=== PATIENT | female | born 1940 | race Caucasian/White ===

== ENCOUNTER 2017-06-25 06:58 | Inpatient (IN) | payer OTHER, MEDICARE ==
[~2017-06-25] VITALS: Ht 160 cm; Wt 49.8 kg
[2017-06-25] VITALS (30 sets, daily range): BP systolic 90–146; BP diastolic 36–80; PULSE 74–110; RESP 14–31; TEMP 97–98.5; O2SAT 68–100
[~2017-06-25 06:58] MED LIST: AMLO2.5T PO; AMOX250C PO; CLIN1CAP5 PO; FLUT1INH INH; HYZA100T6 PO; LATA0.00 EACH EYE; LORTA5 PO; Z.0.OXYGEN INH
[2017-06-25] MEDS ORDERED: methylPREDNISolone SOD SUCC 125 MG/2 ML VIAL IV PUSH ONE (07:15)
[2017-06-25] MEDS ORDERED: RESP: ALBUTEROL 2.5 MG/IPRATROPIUM 0.5 MG NEB (SCH) NEB ONE (07:15)
[2017-06-25] MEDS: RESP: ALBUTEROL 2.5 MG/IPRATROPIUM 0.5 MG NEB (SCH) INH ×4 (07:17→23:07)
--- NOTE | 2017-06-25 07:21 | PD ---
HPI Chief Complaint: short of breath Time Seen by Provider: 07:09 Travel History International Travel<30 days: No Contact w/Intl Traveler<30days: No Traveled to known affect area: No History of Present Illness HPI 77-year-old female presents to the emergency department by private transportation to care family for evaluation of shortness of breath worsening over the weekend. Patient denies any chest pain sweats nausea vomiting referred neck jaw back shoulder arm pain. Patient has COPD and is on supplemental oxygen 2 L/min nasal cannula at all times. Patient had cough productive of some white to yellow sputum but denies any green or brown sputum or hemoptysis. Patient denies any pain with taking a deep breath. Patient denies any abdominal pain. No report of referred neck jaw back shoulder arm pain. No report of fever or chills. Patient states she did have the flu vaccine. PFSH Past Medical History Narrative Medical Asthma anxiety fast heartbeat COPD diverticulitis hypertension valvular heart disease hysterectomy; tobacco use alcohol use; nursing notes reviewed Hx Anticoagulant Therapy: Yes (BABY ASA DAILY) Asthma: Yes Autoimmune Disease: No Anxiety: Yes Depression: No Heart Rhythm Problems: Yes (recalls episode treated for "fast heart rate") Cancer: No Cardiovascular Problems: Yes (HTN) High Cholesterol: No Cirrhosis: Yes (KIDNEY DISEASE CHRONIC STAGE III) COPD: Yes Diabetes: No Diminished Hearing: No Diverticulitis: Yes Endocrine: No Gastrointestinal Disorders: No Genitourinary: No Hypertension: Yes Immune Disorder: No Implanted Vascular Access Dvce: No Musculoskeletal: No Neurologic: No Psychiatric: Yes Reproductive: Yes (BLOCKED FALLOPIAN TUBES) Respiratory: Yes (COPD) Immunizations Current: Yes Migraines: Yes Sleep Apnea: No Thyroid Disease: No Menopausal: Yes Past Surgical History Cardiac Surgery: No Gynecologic Surgery: Yes (total hysterectomy) Hysterectomy: Yes Neurologic Surgery: No Other Surgery: Yes Social History Alcohol Use: Yes (OCC) Tobacco Use: Yes (3 cigarettes/day) Substance Use: No Allergies-Medications (Allergen,Severity, Reaction): Coded Allergies: No Known Allergies (Unverified , 01/02/16) Reported Meds & Prescriptions Reported Meds & Active Scripts Active Reported [oxygen] 2 Liter Duoneb (Ipratropium-Albuterol Neb) 0.5-2.5 Mg/3 Ml Neb 1 Nebule INH Q6HR NEB PRN Breo Ellipta Inh (Fluticasone/Vilanterol) 100-25 Mcg/Act Inh 1 Puff INH DAILY Use daily at the same time. Losartan-Hydrochlorothiazide 100-12.5 Mg Tab 1 Tab PO DAILY Amlodipine (Amlodipine Besylate) 2.5 Mg Tab 2.5 Mg PO DAILY Review of Systems Except as stated in HPI: all other systems reviewed are Neg General / Constitutional: No: Fever, Chills HENT: Positive: Congestion Cardiovascular: Positive: Dyspnea on exertion, No: Chest Pain or Discomfort, Edema Respiratory: Positive: Cough, Shortness of Breath, Wheezing, Orthopnea, No: Pleuritic Pain Gastrointestinal: No: Nausea, Vomiting, Abdominal Pain Genitourinary: No: Flank Pain Musculoskeletal: No: Myalgias, Arthralgias, Cramping, Edema Skin: No Rash Neurologic: No: Weakness, Dizziness, Syncope Psychiatric: Positive: Anxiety Hematologic/Lymphatic: No: Lymph Node Enlargement Physical Exam Narrative GENERAL: Well-developed well-nourished elderly female in obvious respiratory distress with supplemental nasal cannula oxygen 3.5 L per nasal cannula at 82% SKIN: Warm and dry. HEAD: Normocephalic. EYES: No scleral icterus. No injection or drainage. NECK: Supple, trachea midline. No JVD or lymphadenopathy. CARDIOVASCULAR: Increased regular rate and rhythm without murmurs, gallops, or rubs. RESPIRATORY: Breath sounds equal bilaterally and diminished bilaterally. No accessory muscle use. GASTROINTESTINAL: Abdomen soft, non-tender, nondistended. MUSCULOSKELETAL: No cyanosis, or edema. BACK: Nontender without obvious deformity. No CVA tenderness. Data Data Orders Orders Complete Blood Count With Diff (06/25/17 07:09) Comprehensive Metabolic Panel (06/25/17 07:09) B-Type Natriuretic Peptide (06/25/17 07:09) Act Partial Throm Time (Ptt) (06/25/17 07:09) Prothrombin Time / Inr (Pt) (06/25/17 07:09) Magnesium (Mg) (06/25/17 07:09) Ckmb (Isoenzyme) Profile (06/25/17 07:09) Troponin I (06/25/17 07:09) Arterial Blood Gas (Abg) (06/25/17 07:09) Influenzae A/B Antigen (06/25/17 07:09) Blood Culture (06/25/17 07:09) Iv Access Insert/Monitor (06/25/17 07:09) Electrocardiogram (06/25/17 07:09) Ecg Monitoring (06/25/17 07:09) Oximetry (06/25/17 07:09) Oxygen Administration (06/25/17 07:09) Chest, Single Ap (06/25/17 07:09) Sodium Chloride 0.9% Flush (Ns Flush) (06/25/17 07:15) Methylprednisolone So Succ Inj (Solumedr (06/25/17 07:15) Albuterol-Ipratropium Neb (Duoneb Neb) (06/25/17 07:15) Albuterol-Ipratropium Neb (Duoneb Neb) (06/25/17 07:15) Labs Laboratory Tests Test 06/25/17 07:15 White Blood Count 11.5 TH/MM3 Red Blood Count 4.45 MIL/MM3 Hemoglobin 13.1 GM/DL Hematocrit 39.3 % Mean Corpuscular Volume 88.3 FL Mean Corpuscular Hemoglobin 29.5 PG Mean Corpuscular Hemoglobin Concent 33.4 % Red Cell Distribution Width 13.3 % Platelet Count 193 TH/MM3 Mean Platelet Volume 8.7 FL Neutrophils (%) (Auto) 82.5 % Lymphocytes (%) (Auto) 8.4 % Monocytes (%) (Auto) 8.5 % Eosinophils (%) (Auto) 0.0 % Basophils (%) (Auto) 0.6 % Neutrophils # (Auto) 9.4 TH/MM3 Lymphocytes # (Auto) 1.0 TH/MM3 Monocytes # (Auto) 1.0 TH/MM3 Eosinophils # (Auto) 0.0 TH/MM3 Basophils # (Auto) 0.1 TH/MM3 CBC Comment DIFF FINAL Differential Comment Calcium Level 9.2 MG/DL Sodium Level 134 MEQ/L Potassium Level 3.7 MEQ/L Chloride Level 91 MEQ/L MDM Medical Decision Making Medical Screen Exam Complete: Yes Emergency Medical Condition: Yes Medical Record Reviewed: Yes Interpretation(s) EKG: sinus tachycardia rate 110 with LVH no acute ST elevation P pulmonale Differential Diagnosis Dyspnea, exacerbation COPD, CHF, ACS, pneumonia, PE, respiratory failure Narrative Course Patient placed on pig sticker with continuous pulse oximetry nasal canula change to Ventimask however patient unable to tolerate mask and change back to nasal cannula at 4 L/min nasal cannula while on DuoNeb updrafts received Solu- Medrol 125 mg IV patient has a 4/6 holosystolic murmur and patient reports that she was told that this needed to be investigated in January 2017 but was not able to do so. Care signed over to oncalida Correa Diagnosis Primary Impression: COPD with acute exacerbation Nell Schmitz MD Jun 25, 2017 07:21
--- NOTE | 2017-06-25 07:30 | RADRPT ---
EXAM DATE/TIME: 06/25/2017 07:19 [facility] COMPARISON: CHEST SINGLE AP, October 15, 2015, 13:30. INDICATIONS : Short of breath. MEDICAL HISTORY : Chronic obstructive pulmonary disease. SURGICAL HISTORY : None. ENCOUNTER: Initial ACUITY: 3 days PAIN SCORE: 1/10 LOCATION: Bilateral chest FINDINGS: Mild diffuse interstitial prominence slightly progressed since prior exam. Minimal blunting of the co stophrenic angles bilaterally. Cardiomediastinal contours are within normal limits bony thorax is int act. CONCLUSION: 1. Changes of obstructive pulmonary disease. 2. Minimal blunting of the costophrenic angles may reflect pleural thickening/trace pleural fluid. Cristiano Dan MD on June 25, 2017 at 7:27 Board Certified Radiologist. This report was verified electronically.
[2017-06-25] MEDS: SODIUM CHLORIDE 0.9% FLUSH 10 ML FLUSH IVF PRN (07:32)
[2017-06-25 07:37] LABS: AUTOMATED NEUTROPHIL # 9.4 TH/MM3 (1.8-7.7); BASOPHIL # 0.1 TH/MM3 (0-0.2); BASOPHIL % 0.6 % (0.0-2.0); HEMATOCRIT 39.3 % (35.0-46.0); HEMOGLOBIN 13.1 GM/DL (11.6-15.3); LYMPH % 8.4 % (9.0-44.0); MEAN CELL VOLUME 88.3 FL (80.0-100.0); MEAN CORPUSCULAR HEMOGLOBIN 29.5 PG (27.0-34.0); MEAN CORPUSCULAR HGB CONC 33.4 % (32.0-36.0); MEAN PLATELET VOLUME 8.7 FL (7.0-11.0); MONO % 8.5 % (0.0-8.0); NEUT % 82.5 % (16.0-70.0); PLATELET COUNT 193 TH/MM3 (150-450); RED BLOOD COUNT 4.45 MIL/MM3 (4.00-5.30); RED CELL DISTRIBUTION WIDTH 13.3 % (11.6-17.2); WHITE BLOOD COUNT 11.5 TH/MM3 (4.0-11.0)
[2017-06-25] MEDS ORDERED: LOSA100T3 PO (07:40)
[2017-06-25] MEDS ORDERED: FLUT1INH INH (07:40)
[2017-06-25] MEDS ORDERED: AMLO2.5T PO (07:40)
[2017-06-25] MEDS ORDERED: oxygen (07:40)
[2017-06-25] MEDS ORDERED: IPRASOL INH (07:40)
[2017-06-25 07:45] LABS: CHLORIDE 91 MEQ/L (98-107); SODIUM (NA) 134 MEQ/L (136-145)
[2017-06-25 07:49] LABS: ALBUMIN 3.4 GM/DL (3.4-5.0); BICARBONATE 38.7 MEQ/L (21.0-32.0); BLOOD UREA NITROGEN 30 MG/DL (7-18); CALCIUM 9.2 MG/DL (8.5-10.1); GLUCOSE,RANDOM 115 MG/DL (74-106); INTERNATIONAL NORMALIZED RATIO 1.1 RATIO; MAGNESIUM 1.8 MG/DL (1.5-2.5); PROTHROMBIN TIME - PATIENT 11.2 SEC (9.8-11.6)
[2017-06-25 07:52] LABS: ALT (GPT) 10 U/L (10-53); AST (GOT) 13 U/L (15-37); CREATININE 0.73 MG/DL (0.50-1.00); GLOMERULAR FILTRATION RATE 77 ML/MIN (>89)
[2017-06-25 07:54] LABS: TOTAL BILIRUBIN ADULT 0.6 MG/DL (0.2-1.0); TOTAL PROTEIN 8.3 GM/DL (6.4-8.2)
[2017-06-25 07:55] LABS: ALKALINE PHOSPHATASE 69 U/L (45-117)
[2017-06-25] MEDS ORDERED: ASPIRIN 81 MG CHEW TAB CHEW ONE (08:30)
--- NOTE | 2017-06-25 09:46 | PD ---
Data Data Last Documented VS Vital Signs Date Time Temp Pulse Resp B/P (MAP) Pulse Ox O2 Delivery O2 Flow Rate FiO2 06/25/17 09:38 102 15 106/60 (75) 93 BiPAP 40 06/25/17 08:08 3.00 06/25/17 07:15 97.0 Orders Orders Complete Blood Count With Diff (06/25/17 07:09) Comprehensive Metabolic Panel (06/25/17 07:09) B-Type Natriuretic Peptide (06/25/17 07:09) Act Partial Throm Time (Ptt) (06/25/17 07:09) Prothrombin Time / Inr (Pt) (06/25/17 07:09) Magnesium (Mg) (06/25/17 07:09) Ckmb (Isoenzyme) Profile (06/25/17 07:09) Troponin I (06/25/17 07:09) Arterial Blood Gas (Abg) (06/25/17 07:09) Influenzae A/B Antigen (06/25/17 07:09) Blood Culture (06/25/17 07:09) Iv Access Insert/Monitor (06/25/17 07:09) Electrocardiogram (06/25/17 07:09) Ecg Monitoring (06/25/17 07:09) Oximetry (06/25/17 07:09) Oxygen Administration (06/25/17 07:09) Chest, Single Ap (06/25/17 07:09) Sodium Chloride 0.9% Flush (Ns Flush) (06/25/17 07:15) Methylprednisolone So Succ Inj (Solumedr (06/25/17 07:15) Albuterol-Ipratropium Neb (Duoneb Neb) (06/25/17 07:15) Albuterol-Ipratropium Neb (Duoneb Neb) (06/25/17 07:15) Electrocardiogram (06/25/17 ) Aspirin Chew (Aspirin Chew) (06/25/17 08:30) Resp Bipap / Cpap Non Invas Vt (06/25/17 ) Arterial Blood Gas (Abg) (06/25/17 ) Admit Order (Ed Use Only) (06/25/17 ) Labs Laboratory Tests Test 06/25/17 07:15 06/25/17 08:12 06/25/17 09:55 White Blood Count 11.5 TH/MM3 Red Blood Count 4.45 MIL/MM3 Hemoglobin 13.1 GM/DL Hematocrit 39.3 % Mean Corpuscular Volume 88.3 FL Mean Corpuscular Hemoglobin 29.5 PG Mean Corpuscular Hemoglobin Concent 33.4 % Red Cell Distribution Width 13.3 % Platelet Count 193 TH/MM3 Mean Platelet Volume 8.7 FL Neutrophils (%) (Auto) 82.5 % Lymphocytes (%) (Auto) 8.4 % Monocytes (%) (Auto) 8.5 % Eosinophils (%) (Auto) 0.0 % Basophils (%) (Auto) 0.6 % Neutrophils # (Auto) 9.4 TH/MM3 Lymphocytes # (Auto) 1.0 TH/MM3 Monocytes # (Auto) 1.0 TH/MM3 Eosinophils # (Auto) 0.0 TH/MM3 Basophils # (Auto) 0.1 TH/MM3 CBC Comment DIFF FINAL Differential Comment Prothrombin Time 11.2 SEC Prothromb Time International Ratio 1.1 RATIO Activated Partial Thromboplast Time 31.0 SEC Blood Urea Nitrogen 30 MG/DL Creatinine 0.73 MG/DL Random Glucose 115 MG/DL Total Protein 8.3 GM/DL Albumin 3.4 GM/DL Calcium Level 9.2 MG/DL Magnesium Level 1.8 MG/DL Alkaline Phosphatase 69 U/L Aspartate Amino Transf (AST/SGOT) 13 U/L Alanine Aminotransferase (ALT/SGPT) 10 U/L Total Bilirubin 0.6 MG/DL Sodium Level 134 MEQ/L Potassium Level 3.7 MEQ/L Chloride Level 91 MEQ/L Carbon Dioxide Level 38.7 MEQ/L Anion Gap 4 MEQ/L Estimat Glomerular Filtration Rate 77 ML/MIN Total Creatine Kinase 25 U/L Troponin I 0.10 NG/ML B-Type Natriuretic Peptide 498 PG/ML Blood Gas Puncture Site LT RADIAL LT RADIAL Blood Gas Patient Temperature 98.6 98.6 Blood Gas HCO3 41 mmol/L 40 mmol/L Blood Gas Base Excess 13.1 mmol/L 12.2 mmol/L Blood Gas Oxygen Saturation 88 % 88 % Arterial Blood pH 7.23 7.24 Arterial Blood Partial Pressure CO2 100 mmHG 98 mmHG Arterial Blood Partial Pressure O2 74 mmHG 70 mmHG Arterial Blood Oxygen Content 15.4 Vol % 15.7 Vol % Arterial Blood Carboxyhemoglobin 2.6 % 2.5 % Arterial Blood Methemoglobin 1.1 % 1.2 % Blood Gas Hemoglobin 12.4 G/DL 12.7 G/DL Oxygen Delivery Device NASAL CANNULA BIPAP Blood Gas Liter Flow 3 L/M Blood Gas Ventilator Setting IPAP15/[id number] Blood Gas Inspired Oxygen 35 % MDM Supervised Visit with DAVID: No Narrative Course Patient CARE assume from Dr. Nell Schmitz at 0730, patient found to have significant respiratory acidosis on her blood gas. She was placed on BiPAP. GCS 15 she is tolerating this quite well. Settings of 5/15/40 percent her sats are now 91%. Patient was discussed with Dr. Yoder, he would like a repeat blood gas to make sure that the patient is not worsening on BiPAP and if not can stay in [place]. Her EKG does show nonevolving T-wave depressions in V4 through V6 without any ST segment elevation. Patient has a troponin of 0.10 but is chest pain-free and has not been having any chest pain. This was discussed with Dr. Yoder. 325 aspirin were given here in the emergency department. I reviewed the repeat ABG and PCO2 has gone from 197.6 really no change. She is tolerating BiPAP very well and is GCS 15. Will be admitted to [place] ICU. I did discuss with the patient her CODE STATUS and at this time she wishes to remain a FULL CODE. Critical Care Narrative Aggregate critical care time was 35 minutes. Time to perform other separately billable procedures was not included in the critical care time. My time did not include minutes spent treating any other patients simultaneously or on activities that did not directly contribute to the patient's treatment. The services I provided to this patient were to treat and/or prevent clinically significant deterioration that could result in: , disability, permanent organ failure I provided critical care services requiring my management, as noted below: Chart data review, documentation time, medication orders and management, vital sign assessments/reviewing monitor data, ordering and reviewing lab tests, ordering and interpreting/reviewing x-rays and diagnostic studies, care of the patient and discussion of the patient with the admitting physicians. Diagnosis Primary Impression: COPD with acute exacerbation Kings Correa MD Jun 25, 2017 09:46
[2017-06-25] MEDS ORDERED: CHLORHEXIDINE GLUCONATE 2 % 1 PACK (2 CLOTHS) TOP PRN (12:45)
[2017-06-25] MEDS ORDERED: DEXTROSE 50% IN WATER 50 ML VIAL(D50) IV PUSH PRN (12:45)
[2017-06-25] MEDS ORDERED: MISCELLANEOUS NURSING INFORMATION XX SCH (12:45)
[2017-06-25] MEDS ORDERED: GLUCAGON 1 MG/ML VIAL OTHER PRN (12:45)
[2017-06-25] MEDS: INSULIN NovoLIN REGULAR SUPPLEMENTAL SCALE SQ SCH ×3 (13:00→20:39)
[2017-06-25] MEDS: SODIUM CHLOR 0.9% 1000 ML INJ 1,000 ML IV SCH (13:24)
[2017-06-25] MEDS ORDERED: methylPREDNISolone SOD SUCC 125 MG/2 ML VIAL IV SCH (14:00)
--- NOTE | 2017-06-25 15:24 | ECHRPT ---
Indication: sob CONCLUSIONS The left ventricular systolic function is hyperdynamic with an estimated ejection fraction in the ra nge of 65- 70%. Moderate concentric left ventricular hypertrophy. Doppler parameters are consistent with impaired left ventricular relaxtion (grade 1 diastolic dysfun ction). Mitral valve appears to be moderately stenosed (mean gradient 4mmHg by VTI at a heart rate of 80) Probable mild aortic stenosis (mean gradient 14) There is mild tricuspid valve regurgitation. BP: / HR: Rhythm: MEASUREMENTS (Male / Female) Normal Values Technical Quality:Technically difficult study 2D ECHO LV Diastolic Diameter PLAX 3.2 cm 4.2 - 5.9 / 3.9 - 5.3 cm LV Systolic Diameter PLAX 2.5 cm IVS Diastolic Thickness 1.6 cm 0.6 - 1.0 / 0.6 - 0.9 cm LVPW Diastolic Thickness 1.4 cm 0.6 - 1.0 / 0.6 - 0.9 cm LV Relative Wall Thickness 0.9 RV Internal Dim ED PLAX 2.3 cm M-MODE Aortic Root Diameter MM 2.6 cm LA Systolic Diameter MM 2.6 cm LA Ao Ratio MM 1.0 AV Cusp Separation MM 1.3 cm DOPPLER AV Peak Velocity 279.0 cm/s AV Peak Gradient 31.1 mmHg AV Mean Gradient 14.0 mmHg AV Velocity Time Integral 57.0 cm LVOT Peak Velocity 176.0 cm/s LVOT Peak Gradient 12.4 mmHg LVOT Velocity Time Integral 24.8 cm MV Area PHT 1.1 cm Mitral E Point Velocity 99.8 cm/s Mitral A Point Velocity 150.0 cm/s Mitral E to A Ratio 0.7 LV E' Lateral Velocity 4.8 cm/s Mitral E to LV E' Lateral Ratio 20.9 LV E' Septal Velocity 4.5 cm/s Mitral E to LV E' Septal Ratio 22.3 TR Peak Velocity 400.0 cm/s TR Peak Gradient 64.0 mmHg Right Atrial Pressure 10.0 mmHg Pulmonary Artery Systolic Pressu 74.0 mmHg Right Ventricular Systolic Press 74.0 mmHg FINDINGS LEFT VENTRICLE Normal left ventricular size. The left ventricular systolic function is hyperdynamic with an estimated ejection fraction in the ra nge of 65- 70%. Moderate concentric left ventricular hypertrophy. Doppler parameters are consistent with impaired left ventricular relaxtion (grade 1 diastolic dysfun ction). No regional wall motion abnormalities are present. RIGHT VENTRICLE Normal right ventricular size and systolic function. LEFT ATRIUM The left atrial size is moderately dilated. RIGHT ATRIUM The right atrial size is normal. ATRIAL SEPTUM Normal atrial septal thickness without atrial level shunting by limited color doppler interrogation. AORTA The aortic root and proximal ascending aorta are normal in size on limited imaging. MITRAL VALVE Moderate thickening of the mitral valve leaflets. Calcification of the anterior mitral valve leaflet. Trace mitral valve regurgitation. Mitral valve appears to be moderately stenosed (mean gradient 4mmHg by VTI at a heart rate of 80) MVA measured as 1.13cm2, most likely not a relable image to measure AORTIC VALVE The aortic valve is not well visualized. Mild thickening of the aortic valve leaflets. No aortic valve regurgitation. Probable mild aortic stenosis (mean gradient 14) TRICUSPID VALVE Structurally normal tricuspid valve. There is mild tricuspid valve regurgitation. The estimated pulmonary arterial pressure is 74 mmHg. PULMONARY VALVE No pulmonary valve regurgitation or stenosis. VESSELS The inferior vena cava is normal in size. PERICARDIUM No pericardial effusion. Scotty Engle DO (Electronically Signed) Final Date:25 June 2017 15:22
[2017-06-25] MEDS: BUDESONIDE-FORMOTEROL 160/4.5 MCG INHALER INH SCH ×2 (15:53→20:28)
[2017-06-25] MEDS: LEVOFLOXACIN 500 MG TAB PO SCH (16:50)
[2017-06-25] MEDS: OSELTAMIVIR PHOSPHATE 75 MG CAP PO SCH ×2 (16:50→20:28)
--- NOTE | 2017-06-25 16:55 | MH ---
cc: Maurice Rios MD DATE OF ADMISSION: 06/25/2017 HISTORY OF PRESENT ILLNESS: The patient is a 77-year-old female with past medical history of COPD, on 2 L home oxygen nocturnally, being followed by Dr. Whitaker as an outpatient, hypertension, diverticulitis, and anxiety disorder. She presented to [place] ED with worsening shortness of breath for the past several days. She denies any chest pain or any constitutional symptoms; however, she reports dry cough. She denies any exposure to sick contacts and denies any prior history of intubation for COPD. Furthermore, the patient denies any nausea, vomiting, or abdominal pain. On arrival to the ED, she was tachypneic and tachycardic. She had an ABG done on nasal cannula which showed acute hypercapnic respiratory acidosis with a pH of 7.23, a CO2 100, a pO2 74, bicarb of 41, and saturation 88%. Subsequently, she was placed on BiPAP and had 2 additional blood gases. Her last ABG from this afternoon showed improvements of her respiratory acidosis with a pH of 7.30, CO2 82, PaO2 63, and a bicarb of 39. Patient was given Solu-Medrol 125 mg IV push x 1 in the ED along with bronchodilator treatment and aspirin. Her laboratory data is significant for a mild elevation in troponin at 0.10, which decreased to 0.08 on the second set. Her BNP was 498. A chest x-ray in the ED showed COPD changes. The patient had nasal washing done in the ED which was positive for flu A antigen. When seen, she is off BiPAP and on nasal cannula. The patient appears comfortable. PAST MEDICAL HISTORY: Significant for COPD, on 2 L nocturnal oxygen at home, valvular heart disease, anxiety disorder, hypertension. PAST SURGICAL HISTORY: Previous hysterectomy, previous cataract surgery. ALLERGIES: NO KNOWN DRUG ALLERGIES. FAMILY HISTORY: Not contributing to current present illness. SOCIAL HISTORY: Occasional smoker. She smokes 3-4 cigarettes a day. Nondrinker. REPORTED MEDICATIONS: Include DuoNeb, Breo, amlodipine. REVIEW OF SYSTEMS: As per HPI. The rest of the review of systems is unremarkable. PHYSICAL EXAMINATION: GENERAL: A 77-year-old female, lying in bed, in mild respiratory distress. VITAL SIGNS: Afebrile, pulse of 85, blood pressure 107/55, saturation 92% on 4 L oxygen. HEENT: Atraumatic, normocephalic. Pupils equal, round, reactive to light and accommodation. Extraocular muscles are intact. Conjunctivae pink. Nonicteric sclerae. Oral mucosa within normal. NECK: Supple. No JVD, adenopathy, or thyromegaly. Trachea in the midline. CARDIOVASCULAR: Regular rate and rhythm. Normal S1, S2. No murmurs, rubs, or gallops. PULMONARY: Bilateral equal air entry. Overall diminished. No crackles. ABDOMEN: Soft, nontender. No distention. Positive bowel sounds. EXTREMITIES: No cyanosis, clubbing, or edema. NEUROLOGIC: No focal motor or sensory deficit. LABORATORY DATA: WBC 11.5, hemoglobin 13, hematocrit 39, platelet count 193. Sodium 134, potassium 3.7, chloride 91, CO2 38, BUN 30, creatinine 0.73, glucose 115, AST 13, ALT 10, alk phos 69, total bilirubin 0.6. BNP 498. Albumin 3.4. ABG from 04/10 showed a pH of 7.30, CO2 82, PaO2 63, bicarb 39, sats 88%. Radiographic studies: Chest x-ray showed COPD changes. Nasal washing positive for flu A antigen. IMPRESSION: 1. Acute hypercapnic and hypoxemic respiratory failure. 2. Chronic obstructive pulmonary disease exacerbation. 3. Positive influenza. 4. Hyponatremia. 5. Mild elevation in troponin. 6. Moderate mitral stenosis. 7. Hypertension. RECOMMENDATIONS: 1. Monitor neuro status closely and avoid any sedatives. 2. I have continued oxygen and maintained sats above 92%. 3. Bronchodilators in the form of DuoNeb q.4 plus q.2 p.r.n. for shortness of breath. In addition, I will place on Symbicort 160/4.5 two puffs q.12 hours. 4. Solu-Medrol 60 mg IV q.8. Will consult Dr. Whitaker. Patient is known to him. 5. Noninvasive positive pressure ventilation p.r.n. for respiratory distress. 6. Monitor heart rate and blood pressure closely and maintain MAP greater than 65 mmHg. 7. Monitor renal function, I's and O's, and electrolyte replacement as needed. Place on IV fluids NS at 75 mL/hr. 8. Echocardiogram was performed today which showed moderate mitral stenosis, EF 65-70% and grade I diastolic dysfunction. I will consult cardiology service regarding her valvular heart disease. 9. Patient was placed on p.o. heart-healthy diet. 10. Continue Pepcid for GI prophylaxis. 11. Will place on Tamiflu 75 mg b.i.d. in addition to empiric antibiotics, Levaquin. Monitor for signs of infection, which include fever and WBC. Follow up on blood cultures that were drawn today. In addition, we will obtain a sputum culture with Gram stain. 12. Place on sliding scale insulin with Accu-Cheks for glycemic control, as patient will be on IV steroids. 13. Monitor CBC. 14. GI prophylaxis with Pepcid and DVT prophylaxis with SCDs and heparin subcutaneously. 15. Further recommendations will be based on hospital course. MD GIUSEPPE Ascencio/JAEL , 04:27 PM , 04:53 PM
[2017-06-25] MEDS ORDERED: IOHEXOL 350 MG/ML 10 ML VIAL (for RAD DIAG) IVCONTRAST ONE (18:58)
--- NOTE | 2017-06-25 19:04 | EKG ---
Date Performed: 06/25/2017 Time Performed: 08:58:23 PTAGE: 77 years EKG: SINUS TACHYCARDIA RIGHT ATRIAL ENLARGEMENT LEFT ATRIAL ENLARGEMENT LEFT VENTRICULAR HYPERTR OPHY AND ST-T CHANGE ABNORMAL ECG Since the prior tracing, there has been no significant change PREVIOUS TRACING : 06/25/2017 07.11 DOCTOR: Chester Randall Interpretating Date/Time 06/25/2017 19:02:45
--- NOTE | 2017-06-25 19:42 | RADRPT ---
EXAM DATE/TIME: 06/25/2017 18:51 [facility] COMPARISON: No previous studies available for comparison. INDICATIONS : Tachypnea. IV CONTRAST: 70 cc Omnipaque 350 (iohexol) IV RADIATION DOSE: 6.21 CTDIvol (mGy) MEDICAL HISTORY : Chronic obstructive pulmonary disease. Hypertension. SURGICAL HISTORY : None. ENCOUNTER: Initial ACUITY: 1 day PAIN SCALE: 0/10 LOCATION: chest TECHNIQUE: Volumetric scanning of the chest was performed. Using automated exposure control and adjustment of t he mA and/or kV according to patient size, radiation dose was kept as low as reasonably achievable to obtain optimal diagnostic quality images. DICOM format image data is available electronically for review and comparison. Follow-up recommendations for detected pulmonary nodules are based at a minimum on nodule size and pa tient risk factors according to Fleischner Society Guidelines. FINDINGS: LUNGS: Moderate severity upper lobe emphysema and diffusely prominent interstitial markings, more prominent right than left. There is a spiculated margin 12 mm mass adjacent to the posterior aortic arch media l left lung, best seen on image #19. Calcified granuloma in the anterior right midlung measures 5 mm . There is some consolidation without air bronchograms measuring 1.8 cm adjacent to the pleural effu francis in the lower posterior right chest. PLEURA: Small pleural effusion in the posterior right chest measuring 1.7 cm. MEDIASTINUM: The heart and great vessels demonstrate no acute abnormality. There is no mediastinal or hilar lymph adenopathy. Prominent coronary artery calcifications. AXILLAE: Within normal limits. No lymphadenopathy. SKELETAL: Within normal limits for patient age. MISCELLANEOUS: The visualized upper abdominal organs demonstrate no acute abnormality. CONCLUSION: 1. 12 mm spiculated mass in the medial left upper lung adjacent to the posterior arch of the aorta, s uspicious for malignancy. 2. Small right pleural effusion with masslike area of consolidation devoid of air bronchograms in the adjacent right lower lung. 3. No evidence of mediastinal adenopathy. Blane Boyle MD on June 25, 2017 at 19:36 Board Certified Radiologist. This report was verified electronically.
[2017-06-25] MEDS: HEPARIN SODIUM - SQ 10,000 UNITS/ML VIAL SQ SCH (20:28)
[2017-06-25] MEDS: FAMOTIDINE 20 MG/2 ML VIAL IV PUSH SCH (20:29)
[2017-06-25] MEDS: methylPREDNISolone SOD SUCC 40 MG/1 ML VIAL IV PUSH SCH (21:25)
[2017-06-26] VITALS (36 sets, daily range): BP systolic 106–149; BP diastolic 51–69; PULSE 72–112; RESP 15–39; TEMP 97.1–98.1; O2SAT 85–98
[2017-06-26] MEDS: INSULIN NovoLIN REGULAR SUPPLEMENTAL SCALE SQ SCH ×6 (00:19→21:16)
[2017-06-26] MEDS: RESP: ALBUTEROL 2.5 MG/IPRATROPIUM 0.5 MG NEB (SCH) INH ×6 (03:20→22:59)
[2017-06-26] MEDS: CHLORHEXIDINE GLUCONATE 2 % 1 PACK (2 CLOTHS) TOP SCH (04:00)
[2017-06-26] MEDS: SODIUM CHLOR 0.9% 1000 ML INJ 1,000 ML IV SCH (04:17)
[2017-06-26 05:31] LABS: AUTOMATED NEUTROPHIL # 6.5 TH/MM3 (1.8-7.7); BASOPHIL % 0.1 % (0.0-2.0); HEMATOCRIT 32.8 % (35.0-46.0); HEMOGLOBIN 10.6 GM/DL (11.6-15.3); LYMPH % 4.9 % (9.0-44.0); LYMPHOCYTE # 0.4 TH/MM3 (1.0-4.8); MEAN CELL VOLUME 86.4 FL (80.0-100.0); MEAN CORPUSCULAR HEMOGLOBIN 27.8 PG (27.0-34.0); MEAN CORPUSCULAR HGB CONC 32.2 % (32.0-36.0); MONO % 6.4 % (0.0-8.0); MONOCYTE # 0.5 TH/MM3 (0-0.9); NEUT % 88.6 % (16.0-70.0); PLATELET COUNT 164 TH/MM3 (150-450); RED BLOOD COUNT 3.79 MIL/MM3 (4.00-5.30); RED CELL DISTRIBUTION WIDTH 12.9 % (11.6-17.2); WHITE BLOOD COUNT 7.4 TH/MM3 (4.0-11.0)
[2017-06-26 05:44] LABS: BICARBONATE 38.1 MEQ/L (21.0-32.0); CALCIUM 8.6 MG/DL (8.5-10.1)
[2017-06-26 05:47] LABS: CREATININE 0.62 MG/DL (0.50-1.00)
[2017-06-26 05:48] LABS: PHOSPHORUS 1.7 MG/DL (2.5-4.9)
[2017-06-26] MEDS: methylPREDNISolone SOD SUCC 40 MG/1 ML VIAL IV PUSH SCH ×3 (06:15→21:43)
[2017-06-26] MEDS: SODIUM CHLORIDE 0.9% FLUSH 10 ML FLUSH IVF PRN ×2 (06:15→21:43)
--- NOTE | 2017-06-26 07:02 | EKG ---
Date Performed: 06/25/2017 Time Performed: 07:11:53 PTAGE: 77 years EKG: SINUS TACHYCARDIA WITH OCCASIONAL SUPRAVENTRICULAR PREMATURE COMPLEXES RIGHT ATRIAL ENLARGE MENT LEFT ATRIAL ENLARGEMENT LEFT VENTRICULAR HYPERTROPHY AND ST-T CHANGE ABNORMAL ECG Compared to PREVIOUS TRACING , LV strain pattern is more prominent than the prior tracing. PREVIOUS T RACIN10/15/2015 13.07 DOCTOR: Chester Randall Interpretating Date/Time 06/26/2017 07:02:19
--- NOTE | 2017-06-26 08:38 | MB ---
cc: Andrey Escobedo MD DATE OF CONSULT: 06/26/2017 REASON FOR CONSULTATION: Abnormal echo and mildly elevated troponin. HISTORY OF PRESENT ILLNESS: The patient is a pleasant 77-year-old woman who has seen my partner, Dr. Sharma, who has a history of severe COPD on home oxygen yet she continues to have ongoing tobacco abuse. She presented with increasing shortness of breath and was found to be positive for flu A. As part of her workup, she had troponins drawn which were minimally elevated and an echocardiogram which showed a mild to moderate valvular disease and thus I was consulted. The patient says she is feeling much better, denying any chest pain. Her shortness of breath has improved significantly. She is still on her baseline oxygen. Her son states that she initially was satting in the 70s on presentation. PAST MEDICAL HISTORY: COPD on 2 liters of oxygen, valvular heart disease, anxiety, hypertension, tobacco abuse. CURRENT MEDICATIONS: Famotidine 20 mg IV q.12, subQ heparin, Tamiflu, Levaquin. ALLERGIES: NO KNOWN DRUG ALLERGIES. PHYSICAL EXAM: VITAL SIGNS: Afebrile, pulse 80, respiratory rate 24, BP 113/52, sating 96 on 35% FIO2. GENERAL: A pleasant elderly woman in no distress. NECK: No JVD. LUNGS: Decreased breath sounds in all hobbs. CARDIOVASCULAR: Regular rate and rhythm. A II-III/ systolic murmur is appreciated, loudest at the apex. ABDOMEN: Benign. EXTREMITIES: No edema. LABORATORY DATA: Positive for flu A antigen. Sodium 136, potassium 3.7, chloride 95, bicarb 38.1, BUN 39, creatinine 0.62, glucose 131. Troponin 0.1, 0.08, 0.06. BNP is 498. INR is 1.1. White count 7.4, hematocrit 32.8, platelets 196. Chest CT showed a 12 mm spiculated mass in the medial left upper lung adjacent to the posterior arch of the aorta suspicious for malignancy and a small right pleural effusion of mass-like area of consolidation devoid of air bronchograms in the right lower lung. EKG showed sinus tachycardia with signs of LV strain. IMPRESSION: 1. Shortness of breath and elevated troponin. The patient has flu A, known chronic obstructive pulmonary disease and was significantly hypoxic on presentation. All of this quite easily explains her slightly elevated troponin. She has no symptoms that are convincing for acute coronary syndrome. More important than her slight troponin elevation is her concerning CT findings which will likely need to be worked up. 2. Her echocardiogram findings which showed left ventricular hypertrophy and mild to moderate valvular disease can be worked up as an outpatient. Whether or not she requires an ischemic workup, I will defer to her outpatient manager sustainability, Dr. Sharma, but may depend on her prognosis once her lung mass has been better evaluated. 3. I will not pursue any particular ischemic workup at this time given she is actively flu A positive. I will sign off and be available as needed. Please call with any questions. I will arrange for a followup with Dr. Sharma as an outpatient. Thank you again for the opportunity to participate in this patient's care. Andrey Escobedo MD EMA/DL/ , 07:27 AM , 07:50 AM
[2017-06-26] MEDS: HEPARIN SODIUM - SQ 10,000 UNITS/ML VIAL SQ SCH ×2 (08:45→19:43)
[2017-06-26] MEDS: OSELTAMIVIR PHOSPHATE 75 MG CAP PO SCH ×2 (08:45→19:42)
[2017-06-26] MEDS: FAMOTIDINE 20 MG/2 ML VIAL IV PUSH SCH (08:45)
[2017-06-26] MEDS: BUDESONIDE-FORMOTEROL 160/4.5 MCG INHALER INH SCH ×2 (08:45→19:43)
[2017-06-26] MEDS: LEVOFLOXACIN 500 MG TAB PO SCH (10:49)
--- NOTE | 2017-06-26 16:13 | HHI.CCPN ---
Subjective Remarks/Hospital Course Patient is a 77-year-old female with past medical history of COPD, on 2 L home oxygen nocturnally, being followed by Dr. Whitaker as an outpatient, hypertension, diverticulitis, and anxiety disorder. She presented to [place] ED with worsening shortness of breath for the past several days. She denies any chest pain or any constitutional symptoms; however, she reports dry cough. She denies any exposure to sick contacts and denies any prior history of intubation for COPD. Furthermore, the patient denies any nausea, vomiting, or abdominal pain. On arrival to the ED, she was tachypneic and tachycardic. She had an ABG done on nasal cannula which showed acute hypercapnic respiratory acidosis with a pH of 7.23, a CO2 100, a pO2 74, bicarb of 41, and saturation 88%. Subsequently, she was placed on BiPAP and had 2 additional blood gases. Her last ABG from this afternoon showed improvements of her respiratory acidosis with a pH of 7.30, CO2 82, PaO2 63, and a bicarb of 39. Patient was given Solu-Medrol 125 mg IV push x 1 in the ED along with bronchodilator treatment and aspirin. Her laboratory data is significant for a mild elevation in troponin at 0.10, which decreased to 0.08 on the second set. Her BNP was 498. A chest x-ray in the ED showed COPD changes. The patient had nasal washing done in the ED which was positive for flu A antigen. When seen, she is off BiPAP and on nasal cannula. The patient appears comfortable. 06/26 Patient is on 2L oxygen with good sats, feeling better. ABG from earlier today showed improvements in her resp acidosis. Afebrile. Objective Vital Signs Date Time Temp Pulse Resp B/P (MAP) Pulse Ox O2 Delivery O2 Flow Rate FiO2 06/26/17 15:01 97.8 98 32 145/69 (94) 95 06/26/17 12:00 Nasal Cannula 2.00 06/26/17 05:23 35 Intake and Output 06/26/17 06/26/17 06/27/17 08:00 16:00 00:00 Intake Total 100 ml Output Total 475 ml Balance -375 ml Result Diagram: 06/26/17 0416 06/26/17 0416 Other Results Laboratory Tests Test 06/25/17 19:55 06/25/17 20:44 06/25/17 22:12 06/26/17 04:16 Troponin I 0.06 NG/ML Blood Gas Puncture Site RT BRACHIAL RT BRACHIAL Blood Gas Patient Temperature 37.0 37.0 Blood Gas HCO3 42 mmol/L 40 mmol/L Blood Gas Base Excess 13.3 mmol/L 12.2 mmol/L Blood Gas Oxygen Saturation 93 % 92 % Arterial Blood pH 7.20 7.26 Arterial Blood Partial Pressure CO2 110 mmHg 92 mmHg Arterial Blood Partial Pressure O2 89 mmHg 75 mmHg Arterial Blood Oxygen Content 15.5 Vol % 14.7 Vol % Arterial Blood Carboxyhemoglobin 1.5 % 1.6 % Arterial Blood Methemoglobin 1.1 % 1.1 % Blood Gas Hemoglobin 11.8 G/DL 11.3 G/DL Oxygen Delivery Device NASAL CANNULA BIPAP Blood Gas Liter Flow 4 L/M Blood Gas Ventilator Setting IPAP 18/EPAP 5 Blood Gas Inspired Oxygen 35 % White Blood Count 7.4 TH/MM3 Red Blood Count 3.79 MIL/MM3 Hemoglobin 10.6 GM/DL Hematocrit 32.8 % Mean Corpuscular Volume 86.4 FL Mean Corpuscular Hemoglobin 27.8 PG Mean Corpuscular Hemoglobin Concent 32.2 % Red Cell Distribution Width 12.9 % Platelet Count 164 TH/MM3 Mean Platelet Volume 9.0 FL Neutrophils (%) (Auto) 88.6 % Lymphocytes (%) (Auto) 4.9 % Monocytes (%) (Auto) 6.4 % Eosinophils (%) (Auto) 0.0 % Basophils (%) (Auto) 0.1 % Neutrophils # (Auto) 6.5 TH/MM3 Lymphocytes # (Auto) 0.4 TH/MM3 Monocytes # (Auto) 0.5 TH/MM3 Eosinophils # (Auto) 0.0 TH/MM3 Basophils # (Auto) 0.0 TH/MM3 CBC Comment DIFF FINAL Differential Comment Blood Urea Nitrogen 39 MG/DL Creatinine 0.62 MG/DL Random Glucose 131 MG/DL Calcium Level 8.6 MG/DL Phosphorus Level 1.7 MG/DL Magnesium Level 2.0 MG/DL Sodium Level 136 MEQ/L Potassium Level 3.7 MEQ/L Chloride Level 95 MEQ/L Carbon Dioxide Level 38.1 MEQ/L Anion Gap 3 MEQ/L Estimat Glomerular Filtration Rate 93 ML/MIN Test 06/26/17 11:49 Blood Gas Puncture Site RT RADIAL Blood Gas Patient Temperature 37.0 Blood Gas HCO3 36 mmol/L Blood Gas Base Excess 10.2 mmol/L Blood Gas Oxygen Saturation 91 % Arterial Blood pH 7.32 Arterial Blood Partial Pressure CO2 72 mmHg Arterial Blood Partial Pressure O2 70 mmHg Arterial Blood Oxygen Content 14.2 Vol % Arterial Blood Carboxyhemoglobin 1.4 % Arterial Blood Methemoglobin 0.9 % Blood Gas Hemoglobin 11.0 G/DL Oxygen Delivery Device NASAL CANNULA Blood Gas Liter Flow 2 L/M Imaging Last Impressions Chest CT 06/25/17 1825 Signed Impressions: Service Date/Time: Sunday, June 25, 2017 18:51 - CONCLUSION: 1. 12 mm spiculated mass in the medial left upper lung adjacent to the posterior arch of the aorta, suspicious for malignancy. 2. Small right pleural effusion with masslike area of consolidation devoid of air bronchograms in the adjacent right lower lung. 3. No evidence of mediastinal adenopathy. Blane Boyle MD Chest X-Ray 06/25/17 0709 Signed Impressions: Service Date/Time: Sunday, June 25, 2017 07:19 - CONCLUSION: 1. Changes of obstructive pulmonary disease. 2. Minimal blunting of the costophrenic angles may reflect pleural thickening/trace pleural fluid. Cristiano Dan MD Objective Remarks GENERAL: Patient is 77 yo lying in bed in NAD SKIN: Warm and dry. HEAD: Normocephalic. EYES: No scleral icterus. No injection or drainage. NECK: Supple, trachea midline. No JVD or lymphadenopathy. CARDIOVASCULAR: Regular rate and rhythm without murmurs, gallops, or rubs. RESPIRATORY: Breath sounds equal bilaterally. No accessory muscle use. Overall diminished GASTROINTESTINAL: Abdomen soft, non-tender, nondistended. MUSCULOSKELETAL: No cyanosis, or edema. BACK: Nontender without obvious deformity. No CVA tenderness. Neuro: awake and alert A/P Assessment and Plan 1. Acute hypercapnic and hypoxemic respiratory failure. 2. COPD exacerbation. 3. Positive influenza. 4. Hyponatremia. 5. Mild elevation in troponin. 6. Moderate mitral stenosis. 7. Hypertension. Plan Neuro: Monitor neuro status closely and avoid any sedatives. Pulm: Continue oxygen and maintain sats above 92%. Bronchodilators(DuoNeb , Symbicort ) Solu-Medrol 40 mg IV q.8. Pulm is following BIPAP p.r.n. for respiratory distress. CT chest showed 12 mm spiculated mass in the medial left upper lung adjacent to the posterior arch of the aorta, suspicious for malignancy. ? need for CT guided biopsy of lung mass vs PET scan as outpatient will discuss with Dr. Whitaker Diamox 250mg IV x1 CV: Place on Cardizem 30mg Q6- Monitor HR and BP and maintain MAP > 65 mmHg. Echo showed moderate mitral stenosis, EF 65-70% and grade I diastolic dysfunction. Seen by Cards- Dr. Escobedo- no ischemic workup at this time will need to follow up by her Pediatric Associate-Dr. Sharma as outpatient : Monitor renal function, I's and O's, and electrolyte replacement as needed. d/c IVF GI: on p.o. heart-healthy diet. Pepcid for GI prophylaxis. ID: Continue with Tamiflu 75 mg b.i.d., Levaquin. Monitor for signs of infections (fever and WBC). Check sputum cx, UA with cx if indicated. Endo: SSI with Accu-Cheks for glycemic control, Heme: Monitor CBC. GI prophylaxis with Pepcid and DVT prophylaxis with SCDs and heparin subcutaneously. Level 2 Maurice Rios MD Jun 26, 2017 16:13
[2017-06-26 16:50] LABS: AUTOMATED NEUTROPHIL # 9.6 TH/MM3 (1.8-7.7); EOSINOPHIL % 0.1 % (0.0-4.0); HEMATOCRIT 33.3 % (35.0-46.0); HEMOGLOBIN 10.9 GM/DL (11.6-15.3); LYMPH % 3.2 % (9.0-44.0); LYMPHOCYTE # 0.3 TH/MM3 (1.0-4.8); MEAN CELL VOLUME 87.1 FL (80.0-100.0); MEAN CORPUSCULAR HEMOGLOBIN 28.6 PG (27.0-34.0); MEAN CORPUSCULAR HGB CONC 32.9 % (32.0-36.0); MEAN PLATELET VOLUME 8.2 FL (7.0-11.0); MONO % 5.3 % (0.0-8.0); MONOCYTE # 0.5 TH/MM3 (0-0.9); NEUT % 91.4 % (16.0-70.0); PLATELET COUNT 183 TH/MM3 (150-450); RED BLOOD COUNT 3.83 MIL/MM3 (4.00-5.30); WHITE BLOOD COUNT 10.4 TH/MM3 (4.0-11.0)
[2017-06-26] MEDS: DILTIAZEM HCL 30 MG TAB PO SCH (16:59)
--- NOTE | 2017-06-26 17:32 | HHI.PR ---
Subjective Remarks feels better. No chest pain. O2 sat [address] chest shows a 1.2 CM nodule in the left upper lobe. Objective Vital Signs Date Time Temp Pulse Resp B/P (MAP) Pulse Ox O2 Delivery O2 Flow Rate FiO2 06/26/17 17:01 98 27 139/54 (82) 94 06/26/17 16:01 88 25 139/56 (83) 92 06/26/17 16:00 Nasal Cannula 2.00 06/26/17 16:00 100 06/26/17 15:01 97.8 98 32 145/69 (94) 95 06/26/17 14:19 99 06/26/17 14:01 100 24 137/61 (86) 94 06/26/17 13:00 112 38 143/68 (93) 85 06/26/17 12:00 98.1 102 22 137/57 (83) 93 06/26/17 12:00 104 06/26/17 12:00 Nasal Cannula 2.00 06/26/17 11:23 95 Nasal Cannula 2.00 06/26/17 11:00 100 129/51 (77) 94 06/26/17 10:00 101 06/26/17 10:00 100 26 123/51 (75) 96 06/26/17 09:00 106 39 149/65 (93) 89 06/26/17 09:00 95 Nasal Cannula 2.00 06/26/17 08:00 97.1 90 33 133/61 (85) 91 06/26/17 08:00 104 06/26/17 07:33 93 Nasal Cannula 2.00 06/26/17 07:00 97 Nasal Cannula 2.00 06/26/17 07:00 80 24 126/59 (81) 95 06/26/17 06:00 88 06/26/17 06:00 86 35 133/63 (86) 96 06/26/17 05:23 96 35 06/26/17 05:00 78 18 119/55 (76) 96 06/26/17 04:00 97.1 80 24 113/52 (72) 95 06/26/17 04:00 83 06/26/17 04:00 95 Bi-Pap 35 06/26/17 03:00 72 15 119/57 (77) 96 06/26/17 02:00 80 06/26/17 02:00 80 26 114/66 (82) 94 06/26/17 02:00 94 35 06/26/17 01:00 72 17 106/52 (70) 96 06/26/17 00:00 92 Bi-Pap 35 06/26/17 00:00 86 06/26/17 00:00 97.7 86 24 124/62 (82) 98 06/25/17 23:05 95 35 06/25/17 23:00 74 16 111/48 (69) 93 06/25/17 22:00 74 14 90/39 (56) 93 06/25/17 22:00 74 06/25/17 21:08 90 Bi-Pap 35 06/25/17 21:00 90 Bi-Pap 30 06/25/17 21:00 84 16 111/36 (61) 91 06/25/17 21:00 94 30 06/25/17 20:30 90 Nasal Cannula 2.00 06/25/17 20:00 100 Nasal Cannula 4.00 06/25/17 20:00 84 06/25/17 20:00 97.7 84 16 99/42 (61) 100 06/25/17 19:33 84 17 118/48 (71) 94 06/25/17 19:12 95 Nasal Cannula 4.00 06/25/17 19:05 86 20 124/64 (84) 93 06/25/17 18:00 86 20 124/64 (84) 98 06/25/17 18:00 90 I/O 06/25/17 06/25/17 06/25/17 06/26/17 06/26/17 06/26/17 07:00 15:00 23:00 07:00 15:00 23:00 Intake Total 960 ml 100 ml Output Total 475 ml Balance 960 ml -375 ml Intake Oral 960 ml 100 ml Output Urine Total 475 ml # Voids 3 # Bowel Movements 1 0 1 Result Diagram: 06/26/17 1640 06/26/17 0416 Objective Remarks GENERAL: A 77-year-old female, in no respiratory distress. HEENT: Atraumatic, normocephalic. Pupils equal, round, reactive. Conjunctivae pink. Nonicteric sclerae. Oral mucosa within normal. NECK: Supple. No JVD, adenopathy, or thyromegaly. Trachea in the midline. CARDIOVASCULAR: Regular rate and rhythm. Normal S1, S2. No murmurs, rubs, or gallops. PULMONARY: Bilateral equal air entry. Occ wheeze heard. Overall diminished. No crackles. ABDOMEN: Soft, nontender. No distention. Positive bowel sounds. EXTREMITIES: No cyanosis, clubbing, or edema. NEUROLOGIC: No focal motor or sensory deficit. Assessment and Plan Assessment and Plan IMPRESSION: 1. Acute hypercapnic and hypoxemic respiratory failure. 2. Chronic obstructive pulmonary disease exacerbation. 3. Positive influenza. 4. Hyponatremia. 5. Mild elevation in troponin. 6. Moderate mitral stenosis. 7. Hypertension. 8. Left Lung nodule Plan : 1. Will taper solumedrol to 40 mgm q8h 2. O2 at 2 L. 3. Duonebs qid. 4. Continue Levaquin 500 mg daily. 5. Will need PET CT scan as OP. 6. PFT in am 7. D/C Bipap, since she refused. Cara Whitaker MD Jun 26, 2017 17:32
[2017-06-26 19:26] LABS: BILIRUBIN, URINE NEG (NEG); BLOOD, URINE LARGE (NEG); GLUCOSE,URINE NEG (NEG); KETONE, URINE NEG (NEG); NITRITE,URINE NEG (NEG); PH, URINE 6.5 (5.0-8.5); URINE COLOR YELLOW (YELLW/STRAW); URINE LEUKOCYTE ESTERASE TRACE (NEG)
[2017-06-26 19:34] LABS: RBC, URINE 100-200 /hpf (0-3)
[2017-06-26] MEDS: FAMOTIDINE 20 MG TAB PO SCH (19:43)
[2017-06-27] VITALS (39 sets, daily range): BP systolic 102–151; BP diastolic 43–68; PULSE 60–94; RESP 14–39; TEMP 97.6–98.8; O2SAT 89–96
[2017-06-27] MEDS: DILTIAZEM HCL 30 MG TAB PO SCH ×4 (00:18→17:36)
[2017-06-27] MEDS: INSULIN NovoLIN REGULAR SUPPLEMENTAL SCALE SQ SCH ×6 (00:23→19:51)
[2017-06-27] MEDS: RESP: ALBUTEROL 2.5 MG/IPRATROPIUM 0.5 MG NEB (SCH) INH ×6 (02:59→23:10)
[2017-06-27] MEDS: CHLORHEXIDINE GLUCONATE 2 % 1 PACK (2 CLOTHS) TOP SCH (04:00)
[2017-06-27 04:37] LABS: AUTOMATED NEUTROPHIL # 9.7 TH/MM3 (1.8-7.7); BASOPHIL % 0.2 % (0.0-2.0); HEMATOCRIT 32.2 % (35.0-46.0); HEMOGLOBIN 10.5 GM/DL (11.6-15.3); LYMPH % 2.9 % (9.0-44.0); LYMPHOCYTE # 0.3 TH/MM3 (1.0-4.8); MEAN CELL VOLUME 87.6 FL (80.0-100.0); MEAN CORPUSCULAR HEMOGLOBIN 28.5 PG (27.0-34.0); MEAN CORPUSCULAR HGB CONC 32.5 % (32.0-36.0); MEAN PLATELET VOLUME 8.4 FL (7.0-11.0); MONO % 3.7 % (0.0-8.0); MONOCYTE # 0.4 TH/MM3 (0-0.9); NEUT % 93.2 % (16.0-70.0); PLATELET COUNT 171 TH/MM3 (150-450); RED BLOOD COUNT 3.68 MIL/MM3 (4.00-5.30); RED CELL DISTRIBUTION WIDTH 12.9 % (11.6-17.2); WHITE BLOOD COUNT 10.4 TH/MM3 (4.0-11.0)
[2017-06-27 04:52] LABS: CALCIUM 8.6 MG/DL (8.5-10.1)
[2017-06-27 04:53] LABS: BICARBONATE 36.7 MEQ/L (21.0-32.0)
[2017-06-27 04:56] LABS: CREATININE 0.56 MG/DL (0.50-1.00); PHOSPHORUS 2.3 MG/DL (2.5-4.9)
[2017-06-27] MEDS: methylPREDNISolone SOD SUCC 40 MG/1 ML VIAL IV PUSH SCH ×3 (06:14→22:18)
[2017-06-27] MEDS: OSELTAMIVIR PHOSPHATE 75 MG CAP PO SCH ×2 (08:07→19:54)
[2017-06-27] MEDS: FAMOTIDINE 20 MG TAB PO SCH ×2 (08:07→19:54)
[2017-06-27] MEDS: BUDESONIDE-FORMOTEROL 160/4.5 MCG INHALER INH SCH ×2 (08:07→19:53)
[2017-06-27] MEDS: HEPARIN SODIUM - SQ 10,000 UNITS/ML VIAL SQ SCH ×2 (08:07→19:54)
--- NOTE | 2017-06-27 09:23 | MB ---
cc: Cara Whitaker MD DATE OF CONSULT: 06/25/2017 REASON FOR CONSULTATION: COPD and respiratory failure. HISTORY OF PRESENT ILLNESS: This is a 77-year-old lady previously known to me with a longstanding history of COPD, has been on home oxygen at night. The patient has been a longtime smoker and recently developed increasing shortness of breath, cough, chest tightness and wheezing, and came to the hospital since she could not catch her breath. Upon evaluation in the ED, she was noted to be hypercapnic and hypoxemic. She was placed on BiPAP mask and repeat blood gases showed some improvement. The patient, however, does not like the BiPAP. She is on IV steroids, bronchodilators and today, she is feeling a little better. The chest x-ray only showed mild basilar infiltrates. Flu antigen was positive. The patient has no hemoptysis, no reflux, nausea or vomiting. PAST MEDICAL HISTORY: Includes severe COPD, emphysema, history of hysterectomy and cataract repair. She has had pneumonia in the past. Also includes history of hypertension, anxiety and history of valvular heart disease. HABITS: The patient smoked 1 pack per day for over 40 years. Continues to smoke a few cigarettes daily. No significant alcohol use. ALLERGIES: NO KNOWN DRUG ALLERGIES. FAMILY HISTORY: Noncontributory. MEDICATIONS: List was reviewed from the chart, includes Breo 100/25 micrograms, DuoNebs and amlodipine. REVIEW OF SYSTEMS: The patient has lost weight. She has dizziness. She has postnasal drip, cough and wheezing. She has epigastric distress and reflux. Denies nausea, vomiting. Denies leg swelling or calf muscle pains. She has some depression and anxiety. PHYSICAL EXAMINATION: GENERAL: This thinly built elderly lady is alert, mildly dyspneic at rest. VITAL SIGNS: Blood pressure 110/60, pulse 90, respiration 22, temperature 98.2. HEENT: Head normocephalic. Pupils are reactive and equal. Sclerae were clear. Throat is mildly injected. Nasal mucosa is edematous. NECK: Supple, no bruits. No venous distention. No thyromegaly. CHEST: Equal movements with distant breath sounds. Expiratory wheezes throughout both lung hobbs. Prolonged expirations with occasional basilar crackles. CARDIOVASCULAR: Heart sounds are irregular, S1, S2, with no murmur, no S3. ABDOMEN: Soft, scaphoid, without masses. No organomegaly, tenderness. Bowel sounds are active. EXTREMITIES: No lesions, no edema. Reflexes are 1+, with no gross motor deficits. NEUROLOGIC: Cranial nerves grossly intact. RECTAL: Deferred. IMPRESSION: 1. Hypercapnic, hypoxemic respiratory failure. 2. Chronic obstructive pulmonary disease with emphysema and chronic bronchitis, with acute exacerbation. 3. Influenza A. 4. History of hypertension. PLAN: The patient will be continued on O2 on 3 liters nasal canula to keep saturations greater than 92%, BiPAP at bedtime 12/5 cm with 28% FIO2. Solu-Medrol 40 milligrams intravenous every 6 hours. Continue with antibiotic coverage, including Levaquin 500 milligrams daily. Continue with Tamiflu 75 milligrams twice a day for 10 days. Nebulized DuoNeb solution added every 6 hours and Symbicort 160/4.5 micrograms 2 puffs twice daily. Counseled about quitting cigarette smoking. PFT to be done at the bedside. CT scan of the chest to evaluate her for lung nodules. I will follow the case with Dr. Rios. Thank you for this consultation. VMD GREGG Allen/SACHA , 05:18 PM , 05:56 PM
[2017-06-27] MEDS: LEVOFLOXACIN 500 MG TAB PO SCH (11:31)
--- NOTE | 2017-06-27 16:24 | HHI.CCPN ---
Subjective Remarks/Hospital Course Patient is a 77-year-old female with past medical history of COPD, on 2 L home oxygen nocturnally, being followed by Dr. Whitaker as an outpatient, hypertension, diverticulitis, and anxiety disorder. She presented to [facility] ED with worsening shortness of breath for the past several days. She denies any chest pain or any constitutional symptoms; however, she reports dry cough. She denies any exposure to sick contacts and denies any prior history of intubation for COPD. Furthermore, the patient denies any nausea, vomiting, or abdominal pain. On arrival to the ED, she was tachypneic and tachycardic. She had an ABG done on nasal cannula which showed acute hypercapnic respiratory acidosis with a pH of 7.23, a CO2 100, a pO2 74, bicarb of 41, and saturation 88%. Subsequently, she was placed on BiPAP and had 2 additional blood gases. Her last ABG from this afternoon showed improvements of her respiratory acidosis with a pH of 7.30, CO2 82, PaO2 63, and a bicarb of 39. Patient was given Solu-Medrol 125 mg IV push x 1 in the ED along with bronchodilator treatment and aspirin. Her laboratory data is significant for a mild elevation in troponin at 0.10, which decreased to 0.08 on the second set. Her BNP was 498. A chest x-ray in the ED showed COPD changes. The patient had nasal washing done in the ED which was positive for flu A antigen. When seen, she is off BiPAP and on nasal cannula. The patient appears comfortable. 06/26 Patient is on 2L oxygen with good sats, feeling better. ABG from earlier today showed improvements in her resp acidosis. Afebrile. 06/27 No events overnight. On 2L oxygen. Afebrile. Objective Vital Signs Date Time Temp Pulse Resp B/P (MAP) Pulse Ox O2 Delivery O2 Flow Rate FiO2 06/27/17 16:01 98.1 76 26 125/56 (79) 93 06/27/17 16:00 Nasal Cannula 2.00 06/27/17 05:15 35 Intake and Output 06/27/17 06/27/17 06/28/17 08:00 16:00 00:00 Intake Total 120 ml Output Total 300 ml Balance -180 ml Result Diagram: 06/27/17 0400 06/27/17 0400 Other Results Laboratory Tests Test 06/26/17 16:40 06/26/17 17:03 06/27/17 04:00 White Blood Count 10.4 TH/MM3 10.4 TH/MM3 Red Blood Count 3.83 MIL/MM3 3.68 MIL/MM3 Hemoglobin 10.9 GM/DL 10.5 GM/DL Hematocrit 33.3 % 32.2 % Mean Corpuscular Volume 87.1 FL 87.6 FL Mean Corpuscular Hemoglobin 28.6 PG 28.5 PG Mean Corpuscular Hemoglobin Concent 32.9 % 32.5 % Red Cell Distribution Width 13.0 % 12.9 % Platelet Count 183 TH/MM3 171 TH/MM3 Mean Platelet Volume 8.2 FL 8.4 FL Neutrophils (%) (Auto) 91.4 % 93.2 % Lymphocytes (%) (Auto) 3.2 % 2.9 % Monocytes (%) (Auto) 5.3 % 3.7 % Eosinophils (%) (Auto) 0.1 % 0.0 % Basophils (%) (Auto) 0.0 % 0.2 % Neutrophils # (Auto) 9.6 TH/MM3 9.7 TH/MM3 Lymphocytes # (Auto) 0.3 TH/MM3 0.3 TH/MM3 Monocytes # (Auto) 0.5 TH/MM3 0.4 TH/MM3 Eosinophils # (Auto) 0.0 TH/MM3 0.0 TH/MM3 Basophils # (Auto) 0.0 TH/MM3 0.0 TH/MM3 CBC Comment DIFF FINAL DIFF FINAL Differential Comment Urine Color YELLOW Urine Turbidity SL CLOUDY Urine pH 6.[address] 1.015 Urine Protein TRACE mg/dL Urine Glucose (UA) NEG mg/dL Urine Ketones NEG mg/dL Urine Occult Blood LARGE Urine Nitrite NEG Urine Bilirubin NEG Urine Urobilinogen 0.2 MG/DL Urine Leukocyte Esterase TRACE Urine RBC 100-200 /hpf Urine WBC 6-8 /hpf Urine Squamous Epithelial Cells 6-8 /hpf Urine Bacteria NONE /hpf Microscopic Urinalysis Comment CULT NOT INDICATED Blood Urea Nitrogen 29 MG/DL Creatinine 0.56 MG/DL Random Glucose 137 MG/DL Calcium Level 8.6 MG/DL Phosphorus Level 2.3 MG/DL Magnesium Level 2.0 MG/DL Sodium Level 139 MEQ/L Potassium Level 3.7 MEQ/L Chloride Level 97 MEQ/L Carbon Dioxide Level 36.7 MEQ/L Anion Gap 5 MEQ/L Estimat Glomerular Filtration Rate 105 ML/MIN Imaging Last Impressions Chest CT 06/25/17 1825 Signed Impressions: Service Date/Time: Sunday, June 25, 2017 18:51 - CONCLUSION: 1. 12 mm spiculated mass in the medial left upper lung adjacent to the posterior arch of the aorta, suspicious for malignancy. 2. Small right pleural effusion with masslike area of consolidation devoid of air bronchograms in the adjacent right lower lung. 3. No evidence of mediastinal adenopathy. Blane Boyle MD Chest X-Ray 06/25/17 0709 Signed Impressions: Service Date/Time: Sunday, June 25, 2017 07:19 - CONCLUSION: 1. Changes of obstructive pulmonary disease. 2. Minimal blunting of the costophrenic angles may reflect pleural thickening/trace pleural fluid. Cristiano Dan MD Objective Remarks GENERAL: Patient is 77 yo lying in bed in NAD SKIN: Warm and dry. HEAD: Normocephalic. EYES: No scleral icterus. No injection or drainage. NECK: Supple, trachea midline. No JVD or lymphadenopathy. CARDIOVASCULAR: Regular rate and rhythm without murmurs, gallops, or rubs. RESPIRATORY: Breath sounds equal bilaterally. No accessory muscle use. Overall diminished GASTROINTESTINAL: Abdomen soft, non-tender, nondistended. MUSCULOSKELETAL: No cyanosis, or edema. BACK: Nontender without obvious deformity. No CVA tenderness. Neuro: awake and alert A/P Assessment and Plan 1. Acute hypercapnic and hypoxemic respiratory failure. 2. COPD exacerbation. 3. Positive influenza. 4. Hyponatremia. 5. Mild elevation in troponin. 6. Moderate mitral stenosis. 7. Hypertension. Plan Neuro: Monitor neuro status closely and avoid any sedatives. Pulm: Continue oxygen and maintain sats above 92%. Bronchodilators(DuoNeb , Symbicort ) Solu-Medrol 40 mg IV q.8. Pulm is following BIPAP p.r.n. for respiratory distress. CT chest showed 12 mm spiculated mass in the medial left upper lung adjacent to the posterior arch of the aorta, suspicious for malignancy. PET scan as outpatient per pulm Dr. Whitaker Give Diamox 250mg IV x1 CV: Continue Cardizem 30mg Q6- Monitor HR and BP and maintain MAP > 65 mmHg. Echo showed moderate mitral stenosis, EF 65-70% and grade I diastolic dysfunction. Seen by Cards- Dr. Escobedo- no ischemic workup at this time will need to follow up by her Cut Off Saw Operator-Dr. Sharma as outpatient : Monitor renal function, I's and O's, and electrolyte replacement as needed. GI: on p.o. heart-healthy diet. Pepcid for GI prophylaxis. ID: Continue with Tamiflu 75 mg b.i.d., Levaquin. Monitor for signs of infections (fever and WBC). follow up sputum cx, Endo: SSI with Accu-Cheks for glycemic control, Heme: Monitor CBC. GI prophylaxis with Pepcid and DVT prophylaxis with SCDs and heparin subcutaneously. Level 2 Maurice Rios MD Jun 27, 2017 16:24
--- NOTE | 2017-06-27 18:10 | HHI.PR ---
Subjective Remarks Improved today. On 3 L. O2 sat [address] chest shows a 1.2 CM nodule in the left upper lobe. Objective Vital Signs Date Time Temp Pulse Resp B/P (MAP) Pulse Ox O2 Delivery O2 Flow Rate FiO2 06/27/17 17:01 72 18 133/58 (83) 91 06/27/17 16:01 98.1 76 26 125/56 (79) 93 06/27/17 16:00 78 06/27/17 16:00 92 Nasal Cannula 2.00 06/27/17 15:01 86 35 147/68 (94) 92 06/27/17 14:01 80 23 115/50 (71) 94 06/27/17 14:00 86 06/27/17 13:01 94 31 145/56 (85) 90 06/27/17 12:01 97.9 78 20 129/46 (73) 93 06/27/17 12:00 78 06/27/17 11:34 78 24 125/55 (78) 94 06/27/17 11:01 72 19 102/45 (64) 95 06/27/17 11:00 72 17 95 06/27/17 10:01 76 17 103/43 (63) 92 06/27/17 10:00 74 06/27/17 09:01 90 30 134/53 (80) 89 06/27/17 08:01 82 37 128/50 (76) 89 06/27/17 08:00 91 06/27/17 08:00 92 Nasal Cannula 2.00 06/27/17 07:32 93 Nasal Cannula 2.00 06/27/17 07:01 98.0 68 23 118/53 (74) 96 06/27/17 06:24 95 Nasal Cannula 2.00 06/27/17 06:01 60 19 127/56 (79) 96 06/27/17 06:00 70 06/27/17 05:15 95 35 06/27/17 05:01 60 14 116/51 (72) 95 06/27/17 04:01 97.6 68 27 121/46 (71) 94 06/27/17 04:00 69 06/27/17 04:00 92 Bi-Pap 30 06/27/17 03:01 66 20 108/60 (76) 96 06/27/17 03:00 95 35 06/27/17 02:01 74 22 144/56 (85) 96 06/27/17 02:00 66 06/27/17 01:01 74 17 129/59 (82) 95 06/27/17 00:31 92 Bi-Pap 30 06/27/17 00:01 98.2 78 16 147/58 (87) 93 06/27/17 00:00 76 06/26/17 23:01 78 17 133/63 (86) 93 06/26/17 23:00 93 35 06/26/17 22:00 82 15 122/53 (76) 94 06/26/17 22:00 84 06/26/17 22:00 97 Bi-Pap 30 06/26/17 21:00 86 25 133/54 (80) 96 06/26/17 20:15 92 Bi-Pap 35 06/26/17 20:15 94 35 06/26/17 20:00 99 06/26/17 20:00 88 Nasal Cannula 2.00 06/26/17 20:00 98.0 96 32 135/61 (85) 90 06/26/17 19:30 90 28 143/65 (91) 92 06/26/17 19:25 90 26 126/61 (82) 91 06/26/17 19:23 92 Nasal Cannula 2.00 06/26/17 19:00 98 28 146/64 (91) 89 06/26/17 18:37 99 06/26/17 18:30 96 33 143/60 (87) 90 I/O 06/26/17 06/26/17 06/26/17 06/27/17 06/27/17 06/27/17 07:00 15:00 23:00 07:00 15:00 23:00 Intake Total 100 ml 2119 ml 120 ml Output Total 475 ml 600 ml 300 ml Balance -375 ml 1519 ml -180 ml Intake Oral 100 ml 75 ml 120 ml IV Total 2044 ml Output Urine Total 475 ml 600 ml 300 ml # Bowel Movements 0 1 Result Diagram: 06/27/17 04006/27/17 040 Objective Remarks GENERAL: A 77-year-old female, in no respiratory distress. HEENT: Atraumatic, normocephalic. Pupils equal, round, reactive. Conjunctivae pink. Nonicteric sclerae. Oral mucosa normal. NECK: Supple. No JVD, adenopathy, or thyromegaly. Trachea in the midline. CARDIOVASCULAR: Regular rate and rhythm. Normal S1, S2. No murmurs, rubs, or gallops. PULMONARY: Bilateral equal air entry. Occ wheeze heard. Overall diminished. No crackles. ABDOMEN: Soft, nontender. No distention. Positive bowel sounds. EXTREMITIES: No cyanosis, clubbing, or edema. NEUROLOGIC: No focal motor or sensory deficit. Assessment and Plan Assessment and Plan IMPRESSION: 1. Acute hypercapnic and hypoxemic respiratory failure. 2. Chronic obstructive pulmonary disease exacerbation. 3. Positive influenza. 4. Hyponatremia. 5. Mild elevation in troponin. 6. Moderate mitral stenosis. 7. Hypertension. 8. Left Lung nodule Plan : 1.Cont solumedrol 40 mgm q8h 2. O2 at 2 L. 3. Duonebs qid. 4. Continue Levaquin 500 mg daily. 5. Will need PET CT scan as OP. 6.BMP in am 7. Cont Bipap, 12/5 CM at HS 8. Transfer to [facility] Cara Whitaker MD Jun 27, 2017 18:10
[2017-06-28] VITALS (32 sets, daily range): BP systolic 116–158; BP diastolic 52–72; PULSE 58–98; RESP 10–43; TEMP 97.3–98.4; O2SAT 91–95
[2017-06-28] MEDS: DILTIAZEM HCL 30 MG TAB PO SCH ×5 (00:13→23:10)
[2017-06-28] MEDS: INSULIN NovoLIN REGULAR SUPPLEMENTAL SCALE SQ SCH ×6 (00:35→21:31)
[2017-06-28] MEDS: RESP: ALBUTEROL 2.5 MG/IPRATROPIUM 0.5 MG NEB (SCH) INH ×6 (03:15→23:25)
[2017-06-28] MEDS: CHLORHEXIDINE GLUCONATE 2 % 1 PACK (2 CLOTHS) TOP SCH (04:00)
[2017-06-28 05:21] LABS: AUTOMATED NEUTROPHIL # 9.3 TH/MM3 (1.8-7.7); BASOPHIL % 0.1 % (0.0-2.0); EOSINOPHIL % 0.1 % (0.0-4.0); HEMATOCRIT 32.4 % (35.0-46.0); HEMOGLOBIN 10.2 GM/DL (11.6-15.3); LYMPH % 2.9 % (9.0-44.0); LYMPHOCYTE # 0.3 TH/MM3 (1.0-4.8); MEAN CELL VOLUME 88.2 FL (80.0-100.0); MEAN CORPUSCULAR HEMOGLOBIN 27.8 PG (27.0-34.0); MEAN CORPUSCULAR HGB CONC 31.5 % (32.0-36.0); MEAN PLATELET VOLUME 8.5 FL (7.0-11.0); MONO % 3.5 % (0.0-8.0); MONOCYTE # 0.4 TH/MM3 (0-0.9); NEUT % 93.4 % (16.0-70.0); PLATELET COUNT 193 TH/MM3 (150-450); RED BLOOD COUNT 3.67 MIL/MM3 (4.00-5.30)
[2017-06-28 05:34] LABS: CALCIUM 8.8 MG/DL (8.5-10.1)
[2017-06-28 05:35] LABS: BICARBONATE 36.8 MEQ/L (21.0-32.0)
[2017-06-28 05:38] LABS: CREATININE 0.5 MG/DL (0.50-1.00)
[2017-06-28] MEDS: methylPREDNISolone SOD SUCC 40 MG/1 ML VIAL IV PUSH SCH ×3 (05:53→21:23)
[2017-06-28] MEDS: FAMOTIDINE 20 MG TAB PO SCH ×2 (09:25→21:23)
[2017-06-28] MEDS: OSELTAMIVIR PHOSPHATE 75 MG CAP PO SCH ×2 (09:25→21:22)
[2017-06-28] MEDS: HEPARIN SODIUM - SQ 10,000 UNITS/ML VIAL SQ SCH ×2 (09:25→21:23)
[2017-06-28] MEDS: BUDESONIDE-FORMOTEROL 160/4.5 MCG INHALER INH SCH ×2 (09:25→21:23)
[2017-06-28] MEDS: LEVOFLOXACIN 500 MG TAB PO SCH (11:51)
--- NOTE | 2017-06-28 16:32 | HHI.CCPN ---
Subjective Remarks/Hospital Course Patient is a 77-year-old female with past medical history of COPD, on 2 L home oxygen nocturnally, being followed by Dr. Whitaker as an outpatient, hypertension, diverticulitis, and anxiety disorder. She presented to [facility] ED with worsening shortness of breath for the past several days. She denies any chest pain or any constitutional symptoms; however, she reports dry cough. She denies any exposure to sick contacts and denies any prior history of intubation for COPD. Furthermore, the patient denies any nausea, vomiting, or abdominal pain. On arrival to the ED, she was tachypneic and tachycardic. She had an ABG done on nasal cannula which showed acute hypercapnic respiratory acidosis with a pH of 7.23, a CO2 100, a pO2 74, bicarb of 41, and saturation 88%. Subsequently, she was placed on BiPAP and had 2 additional blood gases. Her last ABG from this afternoon showed improvements of her respiratory acidosis with a pH of 7.30, CO2 82, PaO2 63, and a bicarb of 39. Patient was given Solu-Medrol 125 mg IV push x 1 in the ED along with bronchodilator treatment and aspirin. Her laboratory data is significant for a mild elevation in troponin at 0.10, which decreased to 0.08 on the second set. Her BNP was 498. A chest x-ray in the ED showed COPD changes. The patient had nasal washing done in the ED which was positive for flu A antigen. When seen, she is off BiPAP and on nasal cannula. The patient appears comfortable. 06/26 Patient is on 2L oxygen with good sats, feeling better. ABG from earlier today showed improvements in her resp acidosis. Afebrile. 06/27 No events overnight. On 2L oxygen. Afebrile. 06/28 No events overnight. ABG this afternoon showed PH:7.32 with CO2: 74. Similar to pior one on 06/26. On 2L oxygen. awake and alert. Objective Vital Signs Date Time Temp Pulse Resp B/P (MAP) Pulse Ox O2 Delivery O2 Flow Rate FiO2 06/28/17 16:00 93 Nasal Cannula 2.00 06/28/17 16:00 97.7 80 21 120/52 (74) 06/28/17 04:00 30 Intake and Output 06/28/17 06/28/17 06/29/17 08:00 16:00 00:00 Intake Total 120 ml 360 ml Output Total 402 ml Balance -282 ml 360 ml Result Diagram: 06/28/17 0414 06/28/17 0414 Other Results Laboratory Tests Test 06/28/17 04:14 06/28/17 15:30 White Blood Count 10.0 TH/MM3 Red Blood Count 3.67 MIL/MM3 Hemoglobin 10.2 GM/DL Hematocrit 32.4 % Mean Corpuscular Volume 88.2 FL Mean Corpuscular Hemoglobin 27.8 PG Mean Corpuscular Hemoglobin Concent 31.5 % Red Cell Distribution Width 13.0 % Platelet Count 193 TH/MM3 Mean Platelet Volume 8.5 FL Neutrophils (%) (Auto) 93.4 % Lymphocytes (%) (Auto) 2.9 % Monocytes (%) (Auto) 3.5 % Eosinophils (%) (Auto) 0.1 % Basophils (%) (Auto) 0.1 % Neutrophils # (Auto) 9.3 TH/MM3 Lymphocytes # (Auto) 0.3 TH/MM3 Monocytes # (Auto) 0.4 TH/MM3 Eosinophils # (Auto) 0.0 TH/MM3 Basophils # (Auto) 0.0 TH/MM3 CBC Comment DIFF FINAL Differential Comment Blood Urea Nitrogen 26 MG/DL Creatinine 0.50 MG/DL Random Glucose 128 MG/DL Calcium Level 8.8 MG/DL Sodium Level 138 MEQ/L Potassium Level 3.5 MEQ/L Chloride Level 97 MEQ/L Carbon Dioxide Level 36.8 MEQ/L Anion Gap 4 MEQ/L Estimat Glomerular Filtration Rate 119 ML/MIN Blood Gas Puncture Site RT RADIAL Blood Gas Patient Temperature 37.0 Blood Gas HCO3 37 mmol/L Blood Gas Base Excess 10.3 mmol/L Blood Gas Oxygen Saturation 90 % Arterial Blood pH 7.32 Arterial Blood Partial Pressure CO2 74 mmHg Arterial Blood Partial Pressure O2 69 mmHg Arterial Blood Oxygen Content 14.3 Vol % Arterial Blood Carboxyhemoglobin 1.1 % Arterial Blood Methemoglobin 1.4 % Blood Gas Hemoglobin 11.2 G/DL Oxygen Delivery Device NASAL CANNULA Blood Gas Liter Flow 2 L/M Imaging Last Impressions Chest CT 06/25/17 1300 Signed Impressions: Service Date/Time: Sunday, June 25, 2017 18:51 - CONCLUSION: 1. 12 mm spiculated mass in the medial left upper lung adjacent to the posterior arch of the aorta, suspicious for malignancy. 2. Small right pleural effusion with masslike area of consolidation devoid of air bronchograms in the adjacent right lower lung. 3. No evidence of mediastinal adenopathy. Blane Boyle MD Chest X-Ray 06/25/17 0709 Signed Impressions: Service Date/Time: Sunday, June 25, 2017 07:19 - CONCLUSION: 1. Changes of obstructive pulmonary disease. 2. Minimal blunting of the costophrenic angles may reflect pleural thickening/trace pleural fluid. Cristiano Dan MD Objective Remarks GENERAL: Patient is 77 yo lying in bed in NAD SKIN: Warm and dry. HEAD: Normocephalic. EYES: No scleral icterus. No injection or drainage. NECK: Supple, trachea midline. No JVD or lymphadenopathy. CARDIOVASCULAR: Regular rate and rhythm without murmurs, gallops, or rubs. RESPIRATORY: Breath sounds equal bilaterally. No accessory muscle use. Overall diminished GASTROINTESTINAL: Abdomen soft, non-tender, nondistended. MUSCULOSKELETAL: No cyanosis, or edema. BACK: Nontender without obvious deformity. No CVA tenderness. Neuro: awake and alert A/P Assessment and Plan 1. Acute hypercapnic and hypoxemic respiratory failure. 2. COPD exacerbation. 3. Positive influenza. 4. Hyponatremia. 5. Mild elevation in troponin. 6. Moderate mitral stenosis. 7. Hypertension. Plan Neuro: Monitor neuro status closely and avoid any sedatives. Pulm: Continue oxygen and maintain sats above 92%. Bronchodilators(DuoNeb , Symbicort ) Solu-Medrol 40 mg IV q.8. Pulm is following BIPAP p.r.n. for respiratory distress. CT chest showed 12 mm spiculated mass in the medial left upper lung adjacent to the posterior arch of the aorta, suspicious for malignancy. PET scan as outpatient per pulm Dr. Whitaker CV: Continue Cardizem 30mg Q6- Monitor HR and BP and maintain MAP > 65 mmHg. Echo showed moderate mitral stenosis, EF 65-70% and grade I diastolic dysfunction. Seen by Cards- Dr. Escobedo- no ischemic workup at this time will need to follow up with her Manager Store-Dr. Sharma as outpatient : Monitor renal function, I's and O's, and electrolyte replacement as needed. GI: on p.o. heart-healthy diet. Pepcid for GI prophylaxis. ID: Continue with Tamiflu 75 mg b.i.d., Levaquin. Monitor for signs of infections (fever and WBC). sputum cx 06/27: normal resp brandon. Endo: SSI with Accu-Cheks for glycemic control, Heme: Monitor CBC. GI prophylaxis with Pepcid and DVT prophylaxis with SCDs and heparin subcutaneously. Level 2 Maurice Rios MD Jun 28, 2017 16:32
--- NOTE | 2017-06-28 20:32 | HHI.PR ---
Subjective Remarks Improved today. On 3 L. Cannot use BiPAP . O2 sat [address] chest shows a 1.2 CM nodule in the left upper lobe. Objective Vital Signs Date Time Temp Pulse Resp B/P (MAP) Pulse Ox O2 Delivery O2 Flow Rate FiO2 06/28/17 16:00 93 Nasal Cannula 2.00 06/28/17 16:00 97.7 80 21 120/52 (74) 93 06/28/17 16:00 80 06/28/17 15:00 90 39 94 06/28/17 14:00 84 27 91 06/28/17 13:01 98 34 158/63 (94) 92 06/28/17 12:01 84 25 141/61 (87) 93 06/28/17 12:01 84 25 141/61 (87) 93 06/28/17 12:00 Nasal Cannula 2.00 06/28/17 12:00 73 06/28/17 12:00 84 26 94 06/28/17 11:01 72 18 116/53 (74) 94 06/28/17 10:01 76 18 131/58 (82) 94 06/28/17 10:00 78 06/28/17 09:01 97.5 72 26 118/57 (77) 93 06/28/17 08:01 70 16 131/56 (81) 94 06/28/17 08:00 89 06/28/17 08:00 Nasal Cannula 2.00 06/28/17 07:09 95 Nasal Cannula 2.00 06/28/17 07:01 66 23 128/59 (82) 95 06/28/17 06:01 72 26 140/72 (94) 94 06/28/17 06:01 72 06/28/17 05:01 70 35 140/58 (85) 93 06/28/17 04:01 64 06/28/17 04:01 98.4 64 20 123/54 (77) 94 06/28/17 04:00 94 Bi-Pap 30 06/28/17 03:15 95 30 06/28/17 03:01 58 10 119/56 (77) 95 06/28/17 02:01 72 06/28/17 02:01 72 23 131/59 (83) 93 06/28/17 01:01 70 15 130/55 (80) 94 06/28/17 00:25 93 30 06/28/17 00:09 Bi-Pap 06/28/17 00:01 86 06/28/17 00:01 86 43 151/61 (91) 92 06/28/17 00:00 97.6 06/27/17 23:01 76 25 137/58 (84) 94 06/27/17 22:01 76 25 124/57 (79) 93 06/27/17 22:01 76 06/27/17 21:01 72 24 136/59 (84) 93 I/O 06/27/17 06/27/17 06/27/17 06/28/17 06/28/17 06/28/17 07:00 15:00 23:00 07:00 15:00 23:00 Intake Total 120 ml 120 ml 360 ml 240 ml Output Total 300 ml 550 ml 402 ml 450 ml Balance -180 ml -550 ml -282 ml 360 ml -210 ml Intake Oral 120 ml 120 ml 360 ml 240 ml Output Urine Total 300 ml 550 ml 400 ml 450 ml Stool Total 2 ml # Bowel Movements 2 1 Result Diagram: 06/28/1741306/28/17413 Objective Remarks GENERAL: A 77-year-old female, in no respiratory distress. HEENT: Atraumatic, normocephalic. Pupils equal, round, reactive. Conjunctivae pink. Nonicteric sclerae. Oral mucosa normal. NECK: Supple. No JVD, adenopathy, or thyromegaly. Trachea in the midline. CARDIOVASCULAR: Regular rate and rhythm. Normal S1, S2. No murmurs, rubs, or gallops. PULMONARY: Bilateral equal air entry. Occ wheeze heard. Overall diminished. No crackles. ABDOMEN: Soft, nontender. No distention. Positive bowel sounds. EXTREMITIES: No cyanosis, clubbing, or edema. NEUROLOGIC: No focal motor or sensory deficit. Assessment and Plan Assessment and Plan IMPRESSION: 1. Acute hypercapnic and hypoxemic respiratory failure. 2. Chronic obstructive pulmonary disease exacerbation. 3. Positive influenza. 4. Hyponatremia. 5. Mild elevation in troponin. 6. Moderate mitral stenosis. 7. Hypertension. 8. Left Lung nodule Plan : 1.Taper solumedrol 40 mgm q12h 2. O2 at 2 L. 3. Duonebs qid. 4. Continue Levaquin 500 mg daily. 5. Will need PET CT scan as OP. 6.BMP in am 7.D/C Bipap, and use it PRN for resp distress 8. Transfer to tele Cara Whitaker MD Jun 28, 2017 20:32
[2017-06-29] VITALS (18 sets, daily range): BP systolic 105–186; BP diastolic 50–83; PULSE 65–99; RESP 15–36; TEMP 96.8–99.6; O2SAT 91–97
[2017-06-29] MEDS: RESP: ALBUTEROL 2.5 MG/IPRATROPIUM 0.5 MG NEB (SCH) INH ×4 (02:57→15:41)
[2017-06-29] MEDS: CHLORHEXIDINE GLUCONATE 2 % 1 PACK (2 CLOTHS) TOP SCH ×2 (03:10→21:14)
[2017-06-29] MEDS: DILTIAZEM HCL 30 MG TAB PO SCH ×3 (05:19→16:54)
[2017-06-29 06:41] LABS: AUTOMATED NEUTROPHIL # 10.1 TH/MM3 (1.8-7.7); BASOPHIL % 0.2 % (0.0-2.0); EOSINOPHIL % 0.2 % (0.0-4.0); HEMATOCRIT 33.7 % (35.0-46.0); LYMPH % 3.1 % (9.0-44.0); LYMPHOCYTE # 0.3 TH/MM3 (1.0-4.8); MEAN CORPUSCULAR HEMOGLOBIN 28.4 PG (27.0-34.0); MEAN CORPUSCULAR HGB CONC 32.7 % (32.0-36.0); MEAN PLATELET VOLUME 8.2 FL (7.0-11.0); MONO % 1.9 % (0.0-8.0); MONOCYTE # 0.2 TH/MM3 (0-0.9); NEUT % 94.6 % (16.0-70.0); PLATELET COUNT 208 TH/MM3 (150-450); RED BLOOD COUNT 3.88 MIL/MM3 (4.00-5.30); RED CELL DISTRIBUTION WIDTH 12.7 % (11.6-17.2); WHITE BLOOD COUNT 10.6 TH/MM3 (4.0-11.0)
[2017-06-29 06:54] LABS: CALCIUM 8.9 MG/DL (8.5-10.1)
[2017-06-29 06:55] LABS: BICARBONATE 37.6 MEQ/L (21.0-32.0)
[2017-06-29 06:58] LABS: CREATININE 0.45 MG/DL (0.50-1.00)
[2017-06-29] MEDS: INSULIN NovoLIN REGULAR SUPPLEMENTAL SCALE SQ SCH ×4 (07:12→21:00)
--- NOTE | 2017-06-29 07:42 | HHI.CCPN ---
Subjective Remarks/Hospital Course Patient is a 77-year-old female with past medical history of COPD, on 2 L home oxygen nocturnally, being followed by Dr. Whitaker as an outpatient, hypertension, diverticulitis, and anxiety disorder. She presented to [place] ED with worsening shortness of breath for the past several days. She denies any chest pain or any constitutional symptoms; however, she reports dry cough. She denies any exposure to sick contacts and denies any prior history of intubation for COPD. Furthermore, the patient denies any nausea, vomiting, or abdominal pain. On arrival to the ED, she was tachypneic and tachycardic. She had an ABG done on nasal cannula which showed acute hypercapnic respiratory acidosis with a pH of 7.23, a CO2 100, a pO2 74, bicarb of 41, and saturation 88%. Subsequently, she was placed on BiPAP and had 2 additional blood gases. Her last ABG from this afternoon showed improvements of her respiratory acidosis with a pH of 7.30, CO2 82, PaO2 63, and a bicarb of 39. Patient was given Solu-Medrol 125 mg IV push x 1 in the ED along with bronchodilator treatment and aspirin. Her laboratory data is significant for a mild elevation in troponin at 0.10, which decreased to 0.08 on the second set. Her BNP was 498. A chest x-ray in the ED showed COPD changes. The patient had nasal washing done in the ED which was positive for flu A antigen. When seen, she is off BiPAP and on nasal cannula. The patient appears comfortable. 06/26 Patient is on 2L oxygen with good sats, feeling better. ABG from earlier today showed improvements in her resp acidosis. Afebrile. 06/27 No events overnight. On 2L oxygen. Afebrile. 06/28 No events overnight. ABG this afternoon showed PH:7.32 with CO2: 74. Similar to pior one on 06/26. On 2L oxygen. awake and alert. Subjective: 06/29 On 2 L NC. Afebrile. Alert. No leukocytosis. Complaining repeatedly about being hungry. Says her breathing is improved. Objective Vital Signs Date Time Temp Pulse Resp B/P (MAP) Pulse Ox O2 Delivery O2 Flow Rate FiO2 06/29/17 07:00 97.9 71 28 134/61 (85) 95 06/29/17 04:00 Nasal Cannula 2.00 06/28/17 04:00 30 Intake and Output 06/29/17 06/29/17 06/30/17 08:00 16:00 00:00 Intake Total 30 ml Output Total 200 ml Balance -170 ml Result Diagram: 06/29/17 0545 06/29/17 0545 Other Results Laboratory Tests Test 06/28/17 15:30 Blood Gas Puncture Site RT RADIAL Blood Gas Patient Temperature 37.0 Blood Gas HCO3 37 mmol/L (22-26) Blood Gas Base Excess 10.3 mmol/L (-2-2) Blood Gas Oxygen Saturation 90 % (90-100) Arterial Blood pH 7.32 (7.380-7.420) Arterial Blood Partial Pressure CO2 74 mmHg (38-42) Arterial Blood Partial Pressure O2 69 mmHg (61-120) Arterial Blood Oxygen Content 14.3 Vol % (12.0-20.0) Arterial Blood Carboxyhemoglobin 1.1 % (0-4) Arterial Blood Methemoglobin 1.4 % (0-2) Blood Gas Hemoglobin 11.2 G/DL (12.0-16.0) Oxygen Delivery Device NASAL CANNULA Blood Gas Liter Flow 2 L/M Imaging Last Impressions Chest CT 06/25/17 1825 Signed Impressions: Service Date/Time: Sunday, June 25, 2017 18:51 - CONCLUSION: 1. 12 mm spiculated mass in the medial left upper lung adjacent to the posterior arch of the aorta, suspicious for malignancy. 2. Small right pleural effusion with masslike area of consolidation devoid of air bronchograms in the adjacent right lower lung. 3. No evidence of mediastinal adenopathy. Blane Boyle MD Chest X-Ray 06/25/17 0709 Signed Impressions: Service Date/Time: Sunday, June 25, 2017 07:19 - CONCLUSION: 1. Changes of obstructive pulmonary disease. 2. Minimal blunting of the costophrenic angles may reflect pleural thickening/trace pleural fluid. Cristiano Dan MD Objective Remarks GENERAL: Patient is 77 yo sitting up in bed, NAD. SKIN: Warm and dry. HEAD: Normocephalic. EYES: No scleral icterus. No injection or drainage. NECK: Supple, trachea midline. No JVD or lymphadenopathy. CARDIOVASCULAR: Regular rate and rhythm with 3/6 systolic murmur left sternal border radiating to apex. RESPIRATORY: Breath sounds equal bilaterally, rhonchi on the right, No wheeze. On 2 L N[place]. GASTROINTESTINAL: Abdomen soft, non-tender, nondistended. Tee has been removed. MUSCULOSKELETAL: No cyanosis, or edema. SCD s in place. NEURO: awake and alert, conversant. Moving all extremities spontaneously without focal deficit. A/P Problem List: (1) Influenza A ICD Code: J10.1 - Influenza due to other identified influenza virus with other respiratory manifestations (2) Respiratory failure, acute ICD Code: J96.00 - Respiratory failure, acute (3) COPD exacerbation ICD Code: J44.1 - COPD exacerbation Status: Acute (4) Chronic hypercapnic respiratory failure ICD Code: J96.12 - Chronic respiratory failure with hypercapnia Status: Chronic (5) Mitral stenosis ICD Code: I05.0 - Rheumatic mitral stenosis Status: Chronic (6) HTN (hypertension) ICD Code: I10 - HTN (hypertension) Status: Chronic Assessment and Plan 1. Acute hypercapnic and hypoxemic respiratory failure. 2. COPD exacerbation. 3. Positive influenza. 4. Hyponatremia. 5. Mild elevation in troponin. 6. Moderate mitral stenosis. 7. Hypertension. Plan Neuro: Monitor neuro status closely and avoid any sedatives. Pulm: Continue oxygen and maintain sats above 92%. Bronchodilators(DuoNeb x1vnsnm, Symbicort 160/4.5 2 puffs q12. ) Solu-Medrol 40 mg IV q12. Pulm is following, Dr. Whitaker. CT chest showed 12 mm spiculated mass in the medial left upper lung adjacent to the posterior arch of the aorta, suspicious for malignancy. PET scan as outpatient per pulm Dr. Whitaker Diamox 250 mg IV q12 x3 doses. CV: Hypertension Continue Cardizem 30mg Q6- Monitor HR and BP and maintain MAP > 65 mmHg. Echo showed moderate mitral stenosis, EF 65-70% and grade I diastolic dysfunction. Seen by Cards- Dr. Escobedo- no ischemic workup at this time will need to follow up with her Information Technology Teacher-Dr. Sharma as outpatient Start losartan 50/hctz 12.5 daily. : Monitor renal function, I's and O's, and electrolyte replacement as needed. Tee removed 06/28. GI: Continue heart-healthy diet. Pepcid for GI prophylaxis. ID: Continue with Tamiflu 75 mg b.i.d. 06/25 #5, will continue for 7 days considering presentation with COPD and respiratory failure. . Levaquin 06/25 #5. . sputum cx 06/27: normal resp brandon. Endo: Low dose SSI with Accu-Cheks ac/hs for glycemic control while on steroids. Heme: Monitor CBC. GI prophylaxis with Pepcid and DVT prophylaxis with SCDs and heparin subcutaneously. ACCESS PIV OOB. PT consult. Transfer to floor. Hospitalist to assume care. Level 2 Tigist To MD Jun 29, 2017 07:42
[2017-06-29] MEDS: FAMOTIDINE 20 MG TAB PO SCH ×2 (07:50→21:11)
[2017-06-29] MEDS: HEPARIN SODIUM - SQ 10,000 UNITS/ML VIAL SQ SCH ×2 (07:50→21:11)
[2017-06-29] MEDS: BUDESONIDE-FORMOTEROL 160/4.5 MCG INHALER INH SCH ×2 (07:50→21:00)
[2017-06-29] MEDS: OSELTAMIVIR PHOSPHATE 75 MG CAP PO SCH ×2 (07:50→21:11)
[2017-06-29] MEDS: methylPREDNISolone SOD SUCC 40 MG/1 ML VIAL IV PUSH SCH ×2 (07:50→21:11)
[2017-06-29] MEDS: LOSARTAN 50 MG TAB PO SCH (07:52)
[2017-06-29] MEDS ORDERED: HYDROCHLOROTHIAZIDE 12.5 MG CAP PO SCH (09:00)
[2017-06-29] MEDS: LEVOFLOXACIN 500 MG TAB PO SCH (11:00)
--- NOTE | 2017-06-29 12:55 | HHI.PR ---
Subjective Remarks alert no distress on O2 Objective Vital Signs Date Time Temp Pulse Resp B/P (MAP) Pulse Ox O2 Delivery O2 Flow Rate FiO2 06/29/17 12:00 89 06/29/17 12:00 93 Nasal Cannula 2.00 06/29/17 12:00 97.7 90 25 148/56 (86) 93 06/29/17 08:00 97.9 84 21 156/65 (95) 92 06/29/17 08:00 84 06/29/17 08:00 92 Nasal Cannula 2.00 06/29/17 07:43 92 Nasal Cannula 2.00 06/29/17 07:00 97.9 71 28 134/61 (85) 95 06/29/17 06:01 68 28 128/53 (78) 93 06/29/17 06:00 65 06/29/17 05:01 72 15 121/51 (74) 96 06/29/17 04:01 99.6 72 17 105/50 (68) 97 06/29/17 04:00 74 06/29/17 04:00 96 Nasal Cannula 2.00 06/29/17 03:01 84 36 155/70 (98) 96 06/29/17 02:01 74 16 126/54 (78) 96 06/29/17 02:00 73 06/29/17 01:01 78 17 135/58 (83) 96 06/29/17 00:01 98.2 80 20 154/66 (95) 94 06/29/17 00:00 85 06/29/17 00:00 94 Nasal Cannula 2.00 06/28/17 23:01 80 24 151/63 (92) 94 06/28/17 22:01 86 25 153/62 (92) 93 06/28/17 22:00 80 06/28/17 21:01 74 17 144/59 (87) 92 06/28/17 20:01 97.3 78 23 146/57 (86) 92 06/28/17 20:00 87 06/28/17 20:00 93 Nasal Cannula 2.00 06/28/17 19:20 92 Nasal Cannula 2.00 06/28/17 19:01 78 32 153/71 (98) 93 06/28/17 16:00 93 Nasal Cannula 2.00 06/28/17 16:00 97.7 80 21 120/52 (74) 93 06/28/17 16:00 80 06/28/17 15:00 90 39 94 06/28/17 14:00 84 27 91 06/28/17 13:01 98 34 158/63 (94) 92 I/O 06/28/17 06/28/17 06/28/17 06/29/17 06/29/17 06/29/17 07:00 15:00 23:00 07:00 15:00 23:00 Intake Total 120 ml 360 ml 240 ml 30 ml Output Total 402 ml 450 ml 200 ml Balance -282 ml 360 ml -210 ml -170 ml Intake Oral 120 ml 360 ml 240 ml 30 ml Output Urine Total 400 ml 450 ml 200 ml Stool Total 2 ml # Voids 2 # Bowel Movements 2 1 2 Result Diagram: 06/29/17 0545 06/29/17 0545 Objective Remarks GENERAL: SKIN: Warm and dry. HEAD: Atraumatic. Normocephalic. EYES: Pupils equal and round. No scleral icterus. No injection or drainage. ENT: No nasal bleeding or discharge. Mucous membranes pink and moist. NECK: Trachea midline. No JVD. CARDIOVASCULAR: Regular rate and rhythm. RESPIRATORY: No accessory muscle use. Clear to auscultation. Breath sounds equal bilaterally. GASTROINTESTINAL: Abdomen soft, non-tender, nondistended. Hepatic and splenic margins not palpable. MUSCULOSKELETAL: Extremities without clubbing, cyanosis, or edema. No obvious deformities. NEUROLOGICAL: Awake and alert. No obvious cranial nerve deficits. Motor grossly within normal limits. Five out of 5 muscle strength in the arms and legs. Normal speech. PSYCHIATRIC: Appropriate mood and affect; insight and judgment normal. Assessment and Plan Assessment and Plan ASS: COPD EXACERBATION RESPIRATORY FAILURE PLAN O2 BRONCHODILATOR THERAPY INCREASE ACTIVITY Jaxon Coates MD Jun 29, 2017 12:55
[2017-06-29] MEDS: acetaZOLAMIDE INJ 250 MG in SODIUM CHLORIDE 0.9% INJ 50 ML IV SCH (18:00)
[2017-06-29] MEDS: RESP: ALBUTEROL 2.5 MG/IPRATROPIUM 0.5 MG NEB (PRN) INH (20:04)
[2017-06-30] VITALS (9 sets, daily range): BP systolic 128–181; BP diastolic 62–81; PULSE 68–91; RESP 16–20; TEMP 96.1–98; O2SAT 92–98
[2017-06-30] MEDS: DILTIAZEM HCL 30 MG TAB PO SCH ×4 (00:59→17:27)
[2017-06-30] MEDS: RESP: ALBUTEROL 2.5 MG/IPRATROPIUM 0.5 MG NEB (PRN) INH (05:47)
[2017-06-30] MEDS: acetaZOLAMIDE INJ 250 MG in SODIUM CHLORIDE 0.9% INJ 50 ML IV SCH ×2 (06:16→17:29)
[2017-06-30] MEDS: INSULIN NovoLIN REGULAR SUPPLEMENTAL SCALE SQ SCH ×4 (08:00→21:00)
[2017-06-30 08:29] LABS: AUTOMATED NEUTROPHIL # 10.5 TH/MM3 (1.8-7.7); BASOPHIL % 0.2 % (0.0-2.0); EOSINOPHIL % 0.1 % (0.0-4.0); HEMOGLOBIN 11.7 GM/DL (11.6-15.3); LYMPH % 2.5 % (9.0-44.0); LYMPHOCYTE # 0.3 TH/MM3 (1.0-4.8); MEAN CELL VOLUME 87.3 FL (80.0-100.0); MEAN CORPUSCULAR HEMOGLOBIN 28.4 PG (27.0-34.0); MEAN CORPUSCULAR HGB CONC 32.5 % (32.0-36.0); MEAN PLATELET VOLUME 7.6 FL (7.0-11.0); MONO % 3.5 % (0.0-8.0); MONOCYTE # 0.4 TH/MM3 (0-0.9); NEUT % 93.7 % (16.0-70.0); PLATELET COUNT 233 TH/MM3 (150-450); RED BLOOD COUNT 4.13 MIL/MM3 (4.00-5.30); RED CELL DISTRIBUTION WIDTH 12.8 % (11.6-17.2); WHITE BLOOD COUNT 11.2 TH/MM3 (4.0-11.0)
[2017-06-30] MEDS ORDERED: ENALAPRILAT 1.25 MG/ML VIAL IV PUSH PRN (08:30)
[2017-06-30] MEDS: LOSARTAN 50 MG TAB PO SCH (08:32)
[2017-06-30] MEDS: OSELTAMIVIR PHOSPHATE 75 MG CAP PO SCH ×2 (08:32→21:23)
[2017-06-30] MEDS: HEPARIN SODIUM - SQ 10,000 UNITS/ML VIAL SQ SCH ×2 (08:32→21:23)
[2017-06-30] MEDS: methylPREDNISolone SOD SUCC 40 MG/1 ML VIAL IV PUSH SCH ×2 (08:32→21:23)
[2017-06-30] MEDS: BUDESONIDE-FORMOTEROL 160/4.5 MCG INHALER INH SCH ×2 (08:32→21:22)
[2017-06-30] MEDS: FAMOTIDINE 20 MG TAB PO SCH ×2 (08:32→21:23)
[2017-06-30 08:36] LABS: CHLORIDE 93 MEQ/L (98-107); SODIUM (NA) 138 MEQ/L (136-145)
[2017-06-30 08:42] LABS: ALBUMIN 3.3 GM/DL (3.4-5.0); BICARBONATE 40.7 MEQ/L (21.0-32.0); CALCIUM 8.8 MG/DL (8.5-10.1); GLUCOSE,RANDOM 114 MG/DL (74-106)
[2017-06-30 08:43] LABS: BLOOD UREA NITROGEN 21 MG/DL (7-18)
[2017-06-30 08:46] LABS: ALT (GPT) 27 U/L (10-53); AST (GOT) 18 U/L (15-37); CREATININE 0.52 MG/DL (0.50-1.00); GLOMERULAR FILTRATION RATE 114 ML/MIN (>89)
[2017-06-30 08:47] LABS: TOTAL BILIRUBIN ADULT 0.4 MG/DL (0.2-1.0)
[2017-06-30 08:48] LABS: ALKALINE PHOSPHATASE 53 U/L (45-117)
[2017-06-30] MEDS: LEVOFLOXACIN 500 MG TAB PO SCH (11:50)
--- NOTE | 2017-06-30 12:43 | HHI.PR ---
Subjective Remarks alert no distress on O2 Objective Vital Signs Date Time Temp Pulse Resp B/P (MAP) Pulse Ox O2 Delivery O2 Flow Rate FiO2 06/30/17 09:00 93 Nasal Cannula 3.00 06/30/17 08:00 96.1 82 20 176/79 (111) 92 06/30/17 04:14 98.0 68 16 168/80 (109) 98 06/30/17 00:14 97.0 70 18 171/76 (107) 96 06/29/17 20:14 96.8 83 20 186/83 (117) 94 06/29/17 20:04 92 Nasal Cannula 3.00 06/29/17 16:00 98.1 99 30 186/81 (116) 91 06/29/17 16:00 91 Nasal Cannula 2.00 06/29/17 16:00 99 I/O 06/29/17 06/29/17 06/29/17 06/30/17 06/30/17 06/30/17 06:59 14:59 22:59 06:59 14:59 22:59 Intake Total 30 ml 480 ml Output Total 200 ml Balance -170 ml 480 ml Intake Oral 30 ml 480 ml Output Urine Total 200 ml # Voids 2 2 # Bowel Movements 2 0 Result Diagram: 06/30/17 0727 06/30/17 0800 Objective Remarks GENERAL: SKIN: Warm and dry. HEAD: Atraumatic. Normocephalic. EYES: Pupils equal and round. No scleral icterus. No injection or drainage. ENT: No nasal bleeding or discharge. Mucous membranes pink and moist. NECK: Trachea midline. No JVD. CARDIOVASCULAR: Regular rate and rhythm. RESPIRATORY: No accessory muscle use. Clear to auscultation. Breath sounds equal bilaterally. GASTROINTESTINAL: Abdomen soft, non-tender, nondistended. Hepatic and splenic margins not palpable. MUSCULOSKELETAL: Extremities without clubbing, cyanosis, or edema. No obvious deformities. NEUROLOGICAL: Awake and alert. No obvious cranial nerve deficits. Motor grossly within normal limits. Five out of 5 muscle strength in the arms and legs. Normal speech. PSYCHIATRIC: Appropriate mood and affect; insight and judgment normal. Assessment and Plan Assessment and Plan ASS: COPD EXACERBATION RESPIRATORY FAILURE IMPROVING PLAN O2 BRONCHODILATOR THERAPY INCREASE ACTIVITY Jaxon Coates MD Jun 30, 2017 12:43
--- NOTE | 2017-06-30 13:13 | HHI.PR ---
Subjective Remarks Patient reports weakness. Her respiratory status has improved compared to when she was in the ICU but she is not back to baseline. No fevers. No other complaints. Objective Vital Signs Date Time Temp Pulse Resp B/P (MAP) Pulse Ox O2 Delivery O2 Flow Rate FiO2 06/30/17 12:00 97.3 88 20 181/81 (114) 94 06/30/17 09:00 93 Nasal Cannula 3.00 06/30/17 08:00 96.1 82 20 176/79 (111) 92 06/30/17 04:14 98.0 68 16 168/80 (109) 98 06/30/17 00:14 97.0 70 18 171/76 (107) 96 06/29/17 20:14 96.8 83 20 186/83 (117) 94 06/29/17 20:04 92 Nasal Cannula 3.00 06/29/17 16:00 98.1 99 30 186/81 (116) 91 06/29/17 16:00 91 Nasal Cannula 2.00 06/29/17 16:00 99 I/O 06/29/17 06/29/17 06/29/17 06/30/17 06/30/17 06/30/17 06:59 14:59 22:59 06:59 14:59 22:59 Intake Total 30 ml 480 ml Output Total 200 ml Balance -170 ml 480 ml Intake Oral 30 ml 480 ml Output Urine Total 200 ml # Voids 2 2 # Bowel Movements 2 0 Result Diagram: 06/30/17 0727 06/30/17 0800 Objective Remarks GENERAL: NAD, A&Ox3 HEAD: Normocephalic. NECK: Supple, trachea midline. No lymphadenopathy. EYES: No scleral icterus. No injection or drainage. CARDIOVASCULAR: Regular rate and rhythm without murmurs, gallops, or rubs. RESPIRATORY: Breath sounds equal bilaterally. No accessory muscle use. GASTROINTESTINAL: Abdomen soft, non-tender, nondistended. MUSCULOSKELETAL: No cyanosis, or edema. SKIN: Warm and dry. NEURO: No focal neurological deficitis. A/P Problem List: (1) Chronic hypercapnic respiratory failure ICD Code: J96.12 - Chronic respiratory failure with hypercapnia Status: Chronic (2) COPD exacerbation ICD Code: J44.1 - COPD exacerbation Status: Acute (3) Influenza A ICD Code: J10.1 - Influenza due to other identified influenza virus with other respiratory manifestations Assessment and Plan 77-year-old female admitted secondary to COPD exacerbation COPD exacerbation Hypoxemic respiratory failure, acute Acute hypercapnia Influenza Continue oxygen treatments as needed Continue breathing treatments Continue steroids Continue Levaquin Continue Tamiflu Follow for respiratory improvements Hyponatremia Improved Continue to monitor sodium levels History of mitral stenosis Follow clinically Hypertension Uncontrolled Lisinopril added Continue baseline treatment Follow blood pressures Adjust treatments as needed DVT prophylaxis Heparin SCD Anam Rojas MD Jun 30, 2017 13:13
[2017-06-30] MEDS ORDERED: LISINOPRIL 20 MG TAB PO ONE (13:15)
[2017-06-30] MEDS: RESP: ALBUTEROL 2.5 MG/IPRATROPIUM 0.5 MG NEB (SCH) NEB ×2 (13:28→20:05)
[2017-06-30] MEDS: cloNIDine HCL 0.1 MG TAB PO PRN (17:40)
[2017-06-30] MEDS: CHLORHEXIDINE GLUCONATE 2 % 1 PACK (2 CLOTHS) TOP SCH (20:25)
[2017-07-01] VITALS (7 sets, daily range): BP systolic 126–155; BP diastolic 60–80; PULSE 66–85; RESP 16–20; TEMP 96.6–97.7; O2SAT 90–97
[2017-07-01] MEDS: DILTIAZEM HCL 30 MG TAB PO SCH ×5 (00:40→22:53)
[2017-07-01] MEDS: RESP: ALBUTEROL 2.5 MG/IPRATROPIUM 0.5 MG NEB (PRN) INH (00:43)
[2017-07-01] MEDS: RESP: ALBUTEROL 2.5 MG/IPRATROPIUM 0.5 MG NEB (SCH) NEB ×3 (07:48→21:11)
[2017-07-01] MEDS: INSULIN NovoLIN REGULAR SUPPLEMENTAL SCALE SQ SCH ×4 (08:00→21:00)
[2017-07-01] MEDS: BUDESONIDE-FORMOTEROL 160/4.5 MCG INHALER INH SCH ×2 (08:06→22:47)
[2017-07-01] MEDS: methylPREDNISolone SOD SUCC 40 MG/1 ML VIAL IV PUSH SCH ×2 (08:07→22:48)
[2017-07-01] MEDS: HYDROCHLOROTHIAZIDE 12.5 MG CAP PO SCH (08:07)
[2017-07-01] MEDS: HEPARIN SODIUM - SQ 10,000 UNITS/ML VIAL SQ SCH ×2 (08:07→22:51)
[2017-07-01] MEDS: LOSARTAN 50 MG TAB PO SCH (08:07)
[2017-07-01] MEDS: OSELTAMIVIR PHOSPHATE 75 MG CAP PO SCH ×2 (08:08→22:48)
[2017-07-01] MEDS: amLODIPine BESYLATE 5 MG TAB PO SCH (08:08)
[2017-07-01] MEDS: FAMOTIDINE 20 MG TAB PO SCH ×2 (08:08→22:48)
[2017-07-01] MEDS: cloNIDine HCL 0.1 MG TAB PO PRN (08:08)
[2017-07-01] MEDS ORDERED: LISINOPRIL 20 MG TAB PO SCH (09:00)
[2017-07-01] MEDS ORDERED: NON-FORMULARY DRUG (Losartan-Hydrochlorothiazide 1 TAB) PO SCH (09:00)
[2017-07-01] MEDS: LEVOFLOXACIN 500 MG TAB PO SCH (11:11)
--- NOTE | 2017-07-01 11:20 | RSPPFT ---
DATE OF PROCEDURE: 06/28/17 COMMENTS: Spirometry demonstrates an FEV1 of 0.3 at 18% of predicted, FVC of 0.3 at 13%, FEF 25-75 is 34% of predicted. Post-bronchodilator study demonstrated no significant change. Flow volume loops suggest severe obstruction. IMPRESSION: 1. Very severe obstructive airways disease. 2. No significant change following use of bronchodilator.
--- NOTE | 2017-07-01 14:42 | HHI.PR ---
Subjective Remarks Slight increase in activity tolerance at this point. She remains oxygen dependent also. No new complaints from the patient. Not safe for discharge to home at this point. Objective Vital Signs Date Time Temp Pulse Resp B/P (MAP) Pulse Ox O2 Delivery O2 Flow Rate FiO2 07/01/17 11:50 96.8 76 20 145/64 (91) 90 07/01/17 08:00 Nasal Cannula 3.00 07/01/17 07:50 97.2 66 20 127/60 (82) 91 07/01/17 07:49 97 Nasal Cannula 3.00 07/01/17 00:00 96.6 85 16 155/80 (105) 92 06/30/17 20:05 96 Nasal Cannula 3.00 06/30/17 20:00 96.3 78 16 128/62 (84) 93 06/30/17 17:38 167/77 (107) 06/30/17 16:00 96.9 91 20 179/80 (113) 93 06/30/17 16:00 Nasal Cannula 3.00 I/O 06/30/17 06/30/17 06/30/17 07/01/17 07/01/17 07/01/17 07:00 15:00 23:00 07:00 15:00 23:00 Intake Total 480 ml 50 ml Balance 480 ml 50 ml Intake Oral 480 ml IV Total 50 ml # Voids 2 Result Diagram: 06/30/17 0727 06/30/17 0800 Objective Remarks GENERAL: NAD, A&Ox3 HEAD: Normocephalic. NECK: Supple, trachea midline. No lymphadenopathy. EYES: No scleral icterus. No injection or drainage. CARDIOVASCULAR: Regular rate and rhythm without murmurs, gallops, or rubs. RESPIRATORY: Breath sounds equal bilaterally. No accessory muscle use. GASTROINTESTINAL: Abdomen soft, non-tender, nondistended. MUSCULOSKELETAL: No cyanosis, or edema. SKIN: Warm and dry. NEURO: No focal neurological deficitis. A/P Problem List: (1) Chronic hypercapnic respiratory failure ICD Code: J96.12 - Chronic respiratory failure with hypercapnia Status: Chronic (2) COPD exacerbation ICD Code: J44.1 - COPD exacerbation Status: Acute (3) Influenza A ICD Code: J10.1 - Influenza due to other identified influenza virus with other respiratory manifestations Assessment and Plan 77-year-old female admitted secondary to COPD exacerbation Continue to work with physical therapy. Continue oxygen and wean as tolerated. Labs reviewed. Potassium level is low today. Continue to monitor labs. Labs ordered for further monitoring. Replace potassium and monitor potassium levels. COPD exacerbation Hypoxemic respiratory failure, acute Acute hypercapnia Influenza Continue oxygen treatments as needed Continue breathing treatments Continue steroids Continue Levaquin Continue Tamiflu Follow for respiratory improvements Hyponatremia Improved Continue to monitor sodium levels History of mitral stenosis Follow clinically Hypertension Uncontrolled Lisinopril added Continue baseline treatment Follow blood pressures Adjust treatments as needed Hypokalemia Monitor replace as needed DVT prophylaxis Heparin SCD Anam Rojas MD Jul 01, 2017 14:42
[2017-07-01] MEDS: ALPRAZolam 0.25 MG TAB PO PRN (15:22)
[2017-07-01] MEDS: CHLORHEXIDINE GLUCONATE 2 % 1 PACK (2 CLOTHS) TOP SCH (22:53)
[2017-07-02] VITALS (7 sets, daily range): BP systolic 125–189; BP diastolic 59–81; PULSE 71–92; RESP 16–18; TEMP 97.2–98; O2SAT 93–96
[2017-07-02] MEDS: DILTIAZEM HCL 30 MG TAB PO SCH ×4 (06:13→22:51)
[2017-07-02 06:59] LABS: AUTOMATED NEUTROPHIL # 9.3 TH/MM3 (1.8-7.7); BASOPHIL % 0.1 % (0.0-2.0); EOSINOPHIL % 0.1 % (0.0-4.0); HEMATOCRIT 34.5 % (35.0-46.0); HEMOGLOBIN 11.3 GM/DL (11.6-15.3); LYMPH % 3.6 % (9.0-44.0); LYMPHOCYTE # 0.4 TH/MM3 (1.0-4.8); MEAN CELL VOLUME 86.6 FL (80.0-100.0); MEAN CORPUSCULAR HEMOGLOBIN 28.4 PG (27.0-34.0); MEAN CORPUSCULAR HGB CONC 32.7 % (32.0-36.0); MONO % 3.3 % (0.0-8.0); MONOCYTE # 0.3 TH/MM3 (0-0.9); NEUT % 92.9 % (16.0-70.0); PLATELET COUNT 195 TH/MM3 (150-450); RED BLOOD COUNT 3.98 MIL/MM3 (4.00-5.30); RED CELL DISTRIBUTION WIDTH 12.7 % (11.6-17.2)
[2017-07-02 07:00] LABS: CHLORIDE 88 MEQ/L (98-107); SODIUM (NA) 134 MEQ/L (136-145)
[2017-07-02 07:10] LABS: CALCIUM 8.2 MG/DL (8.5-10.1)
[2017-07-02 07:11] LABS: BICARBONATE 40.8 MEQ/L (21.0-32.0); BLOOD UREA NITROGEN 19 MG/DL (7-18); GLUCOSE,RANDOM 114 MG/DL (74-106)
[2017-07-02 07:13] LABS: ALT (GPT) 30 U/L (10-53); CREATININE 0.51 MG/DL (0.50-1.00); GLOMERULAR FILTRATION RATE 117 ML/MIN (>89)
[2017-07-02 07:14] LABS: TOTAL BILIRUBIN ADULT 0.3 MG/DL (0.2-1.0)
[2017-07-02 07:15] LABS: AST (GOT) 19 U/L (15-37); TOTAL PROTEIN 6.1 GM/DL (6.4-8.2)
[2017-07-02 07:16] LABS: ALKALINE PHOSPHATASE 44 U/L (45-117)
[2017-07-02] MEDS: RESP: ALBUTEROL 2.5 MG/IPRATROPIUM 0.5 MG NEB (SCH) NEB ×3 (07:48→20:36)
[2017-07-02] MEDS: INSULIN NovoLIN REGULAR SUPPLEMENTAL SCALE SQ SCH ×4 (08:52→21:00)
[2017-07-02] MEDS: methylPREDNISolone SOD SUCC 40 MG/1 ML VIAL IV PUSH SCH (09:04)
[2017-07-02] MEDS: BUDESONIDE-FORMOTEROL 160/4.5 MCG INHALER INH SCH ×2 (09:05→21:32)
[2017-07-02] MEDS: HEPARIN SODIUM - SQ 10,000 UNITS/ML VIAL SQ SCH ×2 (09:05→21:31)
[2017-07-02] MEDS: OSELTAMIVIR PHOSPHATE 75 MG CAP PO SCH ×2 (09:05→21:32)
[2017-07-02] MEDS: HYDROCHLOROTHIAZIDE 12.5 MG CAP PO SCH (09:06)
[2017-07-02] MEDS: LOSARTAN 50 MG TAB PO SCH (09:06)
[2017-07-02] MEDS: FAMOTIDINE 20 MG TAB PO SCH ×2 (09:06→21:32)
[2017-07-02] MEDS: amLODIPine BESYLATE 5 MG TAB PO SCH (09:06)
[2017-07-02] MEDS: LEVOFLOXACIN 500 MG TAB PO SCH (12:00)
[2017-07-02] MEDS: cloNIDine HCL 0.1 MG TAB PO PRN (12:29)
--- NOTE | 2017-07-02 12:56 | HHI.PR ---
Subjective Remarks Walks with help . Needs Rehab. On [address] chest shows a 1.2 CM nodule in the left upper lobe.Need PET CT as OP. Objective Vital Signs Date Time Temp Pulse Resp B/P (MAP) Pulse Ox O2 Delivery O2 Flow Rate FiO2 07/02/17 08:00 98.0 72 18 169/74 (105) 95 07/02/17 07:49 94 Nasal Cannula 2.00 07/02/17 00:48 Nasal Cannula 07/02/17 00:00 97.2 72 16 125/59 (81) 96 07/01/17 21:10 97 Nasal Cannula 2.00 07/01/17 20:00 97.1 85 16 150/71 (97) 91 07/01/17 15:50 97.7 78 20 126/60 (82) 91 I/O 07/01/17 07/01/17 07/01/17 07/02/17 07/02/17 07/02/17 07:00 15:00 23:00 07:00 15:00 23:00 Intake Total 720 ml Output Total 2 ml Balance 718 ml Intake Oral 720 ml Output Urine Total 2 ml # Bowel Movements 0 Result Diagram: 07/02/1715 07/02/17 0615 Objective Remarks GENERAL: A 77-year-old female, in no distress. HEENT: Atraumatic, normocephalic. Pupils equal, round, reactive. Conjunctivae pink. Nonicteric sclerae. Oral mucosa normal. NECK: Supple. No JVD, adenopathy, or thyromegaly. Trachea in the midline. CARDIOVASCULAR: Regular rate and rhythm. Normal S1, S2. No murmurs, rubs, or gallops. PULMONARY: Bilateral equal air entry. Occ wheeze . Overall diminished. No crackles. ABDOMEN: Soft, nontender. No distention. Positive bowel sounds. EXTREMITIES: No cyanosis, clubbing, or edema. NEUROLOGIC: No focal motor or sensory deficit. Assessment and Plan Assessment and Plan IMPRESSION: 1. Acute hypercapnic and hypoxemic respiratory failure. 2. Chronic obstructive pulmonary disease exacerbation. 3. Positive influenza. 4. Hyponatremia. 5. Mild elevation in troponin. 6. Moderate mitral stenosis. 7. Hypertension. 8. Left Lung nodule Plan : 1 D/C solumedrol 2. O2 at 2 L. 3. Duonebs qid. 4. Levaquin 500 mg daily. 5. Will need PET CT scan as OP. 6. Add Prednisone 20 mg BID and taper 7. PT and OT 8. Rehab placement Cara Whitaker MD Jul 02, 2017 12:56
--- NOTE | 2017-07-02 15:10 | HHI.PR ---
Subjective Remarks Crestor status continues to improve. Patient is approaching baseline rest or status. Her physical function is not yet to baseline. She does not demonstrate that she will be functional at home yet. She will benefit from a discharge to [facility] facility. Objective Vital Signs Date Time Temp Pulse Resp B/P (MAP) Pulse Ox O2 Delivery O2 Flow Rate FiO2 07/02/17 12:00 97.8 92 18 189/81 (117) 95 07/02/17 09:05 95 Nasal Cannula 2.00 07/02/17 08:00 98.0 72 18 169/74 (105) 95 07/02/17 08:00 71 07/02/17 07:49 94 Nasal Cannula 2.00 07/02/17 00:48 Nasal Cannula 07/02/17 00:00 97.2 72 16 125/59 (81) 96 07/01/17 21:10 97 Nasal Cannula 2.00 07/01/17 20:00 97.1 85 16 150/71 (97) 91 07/01/17 15:50 97.7 78 20 126/60 (82) 91 I/O 07/01/17 07/01/17 07/01/17 07/02/17 07/02/17 07/02/17 07:00 15:00 23:00 07:00 15:00 23:00 Intake Total 720 ml Output Total 2 ml Balance 718 ml Intake Oral 720 ml Output Urine Total 2 ml # Bowel Movements 0 Result Diagram: 07/02/1715 07/02/17 0615 Objective Remarks GENERAL: NAD, A&Ox3 HEAD: Normocephalic. NECK: Supple, trachea midline. No lymphadenopathy. EYES: No scleral icterus. No injection or drainage. CARDIOVASCULAR: Regular rate and rhythm without murmurs, gallops, or rubs. RESPIRATORY: Breath sounds equal bilaterally. No accessory muscle use. GASTROINTESTINAL: Abdomen soft, non-tender, nondistended. MUSCULOSKELETAL: No cyanosis, or edema. SKIN: Warm and dry. NEURO: No focal neurological deficitis. A/P Problem List: (1) Chronic hypercapnic respiratory failure ICD Code: J96.12 - Chronic respiratory failure with hypercapnia Status: Chronic (2) COPD exacerbation ICD Code: J44.1 - COPD exacerbation Status: Acute (3) Influenza A ICD Code: J10.1 - Influenza due to other identified influenza virus with other respiratory manifestations Assessment and Plan 77-year-old female admitted secondary to COPD exacerbation Continue working with physical therapy. Continue weaning oxygen as tolerated. Plan to discharge [facility] facility tomorrow if available. COPD exacerbation Hypoxemic respiratory failure, acute Acute hypercapnia Influenza Continue oxygen treatments as needed Continue breathing treatments Continue steroids Continue Levaquin Continue Tamiflu Follow for respiratory improvements Hyponatremia Improved Continue to monitor sodium levels History of mitral stenosis Follow clinically Hypertension Uncontrolled Lisinopril added Continue baseline treatment Follow blood pressures Adjust treatments as needed Hypokalemia Monitor replace as needed DVT prophylaxis Heparin SCD Anam Rojas MD Jul 02, 2017 15:10
[2017-07-02] MEDS ORDERED: LEVA500T33 PO (15:14)
[2017-07-02] MEDS ORDERED: PRED10PA PO (15:14)
[2017-07-02] MEDS ORDERED: DILT120C50 PO (15:14)
[2017-07-02] MEDS: predniSONE 20 MG TAB PO SCH (21:32)
[2017-07-02] MEDS: ALPRAZolam 0.25 MG TAB PO PRN (22:51)
[2017-07-03] VITALS (8 sets, daily range): BP systolic 129–168; BP diastolic 56–81; PULSE 71–91; RESP 14–20; TEMP 97.1–97.6; O2SAT 91–95
[2017-07-03] MEDS: CHLORHEXIDINE GLUCONATE 2 % 1 PACK (2 CLOTHS) TOP SCH (00:02)
[2017-07-03] MEDS: DILTIAZEM HCL 30 MG TAB PO SCH ×4 (05:42→23:55)
[2017-07-03] MEDS: RESP: ALBUTEROL 2.5 MG/IPRATROPIUM 0.5 MG NEB (SCH) NEB ×3 (08:09→19:51)
[2017-07-03] MEDS: INSULIN NovoLIN REGULAR SUPPLEMENTAL SCALE SQ SCH ×4 (08:27→21:00)
[2017-07-03] MEDS: BUDESONIDE-FORMOTEROL 160/4.5 MCG INHALER INH SCH ×2 (09:50→21:45)
[2017-07-03] MEDS: HYDROCHLOROTHIAZIDE 12.5 MG CAP PO SCH (09:51)
[2017-07-03] MEDS: FAMOTIDINE 20 MG TAB PO SCH ×2 (09:51→21:45)
[2017-07-03] MEDS: amLODIPine BESYLATE 5 MG TAB PO SCH (09:51)
[2017-07-03] MEDS: LOSARTAN 50 MG TAB PO SCH (09:51)
[2017-07-03] MEDS: OSELTAMIVIR PHOSPHATE 75 MG CAP PO SCH (09:51)
[2017-07-03] MEDS: HEPARIN SODIUM - SQ 10,000 UNITS/ML VIAL SQ SCH ×2 (09:53→21:45)
[2017-07-03] MEDS: LEVOFLOXACIN 500 MG TAB PO SCH (10:00)
[2017-07-03] MEDS: predniSONE 20 MG TAB PO SCH ×2 (10:00→21:45)
--- NOTE | 2017-07-03 10:46 | HHI.DS ---
Discharge Summary Admission Date Jun 25, 2017 at 09:44 Discharge Date: Jul 03, 2017 Admitting Diagnosis COPD exacerbation, Hypercapneic resp failure. (1) COPD exacerbation ICD Code: J44.1 - COPD exacerbation Diagnosis: Principal Status: Acute (2) Influenza A ICD Code: J10.1 - Influenza due to other identified influenza virus with other respiratory manifestations Diagnosis: Principal (3) Chronic hypercapnic respiratory failure ICD Code: J96.12 - Chronic respiratory failure with hypercapnia Diagnosis: Principal Status: Chronic Procedures None Brief History - From Admission Mrs. Bae is a 77 year old female admitted with severe respiratory failure which was a COPD Exacerbation on chronic respiratory failure triggered by Influenza. CBC/BMP: 07/02/17 0615 07/02/17 0615 Significant Findings Laboratory Tests Test 07/02/17 06:15 Red Blood Count 3.98 MIL/MM3 (4.00-5.30) Hemoglobin 11.3 GM/DL (11.6-15.3) Hematocrit 34.5 % (35.0-46.0) Neutrophils (%) (Auto) 92.9 % (16.0-70.0) Lymphocytes (%) (Auto) 3.6 % (9.0-44.0) Neutrophils # (Auto) 9.3 TH/MM3 (1.8-7.7) Lymphocytes # (Auto) 0.4 TH/MM3 (1.0-4.8) Blood Urea Nitrogen 19 MG/DL (7-18) Random Glucose 114 MG/DL (74-106) Total Protein 6.1 GM/DL (6.4-8.2) Albumin 3.0 GM/DL (3.4-5.0) Calcium Level 8.2 MG/DL (8.5-10.1) Alkaline Phosphatase 44 U/L (45-117) Sodium Level 134 MEQ/L (136-145) Chloride Level 88 MEQ/L (98-107) Carbon Dioxide Level 40.8 MEQ/L (21.0-32.0) Hospital Course Mrs. Bae is a 77 year old female admitted with severe respiratory failure which was a COPD Exacerbation on chronic respiratory failure triggered by Influenza. Through time she has slowly returned to respiratory baseline. Weakness is present secondary to her state and has not improved quickly. She will need SNF for further rehab at discharge. Medically stable and clear for discharge to SNF today. Pt Condition on Discharge: Stable Discharge Disposition: Discharge to SNF Discharge Time: > 30 minutes Discharge Instructions DIET: Follow Instructions for: As Tolerated, No Restrictions Activities you can perform: Regular-No Restrictions Follow up Referrals: PCP Follow-up - 2 Weeks New Medications: Diltiazem CD 24 HR (Diltiazem CD 24 HR) 120 Mg Caper 120 MG PO DAILY, #30 CAP 0 Refills Prednisone (21) 10 mg tab Dose Pack (Prednisone (21) 10 mg tab Dose Pack) 10 Mg Pack 10 MG PO DIRECTED for Inflammation, #1 DSPK 0 Refills Levofloxacin (Levaquin) 500 Mg Tablet 500 MG PO DAILY@1100 for Infection, #2 TAB Continued Medications: Fluticasone-Vilanterol Inh (Breo Ellipta Inh) 100-25 Mcg/Act Inh 1 PUFF INH DAILY, #1 INHALER 0 Refills Use daily at the same time. Ipratropium-Albuterol Neb (Duoneb) 0.5-2.5 Mg/3 Ml Neb 1 NEBULE INH Q6HR NEB PRN for WHEEZING, #120 NEBULE 0 Refills Losartan-Hydrochlorothiazide (Losartan-Hydrochlorothiazide) 100-12.5 Mg Tab 1 TAB PO DAILY for Blood Pressure Management, #30 TAB 0 Refills [oxygen] () 2 LITER Discontinued Medications: Amlodipine (Amlodipine) 2.5 Mg Tab 2.5 MG PO DAILY for Blood Pressure Management, #30 TAB 0 Refills Anam Rojas MD Jul 03, 2017 10:46
[2017-07-03] MEDS: ALPRAZolam 0.25 MG TAB PO PRN ×2 (13:12→23:55)
[2017-07-03] MEDS: cloNIDine HCL 0.1 MG TAB PO PRN (17:06)
--- NOTE | 2017-07-03 17:49 | HHI.PR ---
Subjective Remarks Walks with help . Needs Rehab. On [address] chest shows a 1.2 CM nodule in the left upper lobe.Need PET CT as OP. Will go to rehab in am. Objective Vital Signs Date Time Temp Pulse Resp B/P (MAP) Pulse Ox O2 Delivery O2 Flow Rate FiO2 07/03/17 17:05 168/62 (97) 07/03/17 16:00 97.3 91 14 165/81 (109) 91 07/03/17 12:00 97.1 91 16 129/68 (88) 94 07/03/17 08:09 95 Nasal Cannula 2.00 07/03/17 08:00 97.5 71 14 156/71 (99) 92 07/03/17 00:00 97.6 85 16 134/66 (88) 93 07/02/17 20:36 95 Nasal Cannula 2.00 07/02/17 20:00 97.6 80 16 151/74 (99) 93 I/O 07/02/17 07/02/17 07/02/17 07/03/17 07/03/17 07/03/17 07:00 15:00 23:00 07:00 15:00 23:00 Intake Total 600 ml 120 ml 120 ml Balance 600 ml 120 ml 120 ml Intake Oral 600 ml 120 ml 120 ml # Voids 3 2 Result Diagram: 07/02/1761407/02/17614 Objective Remarks GENERAL: A 77-year-old female, in no distress. HEENT: Atraumatic, normocephalic. Pupils equal, round, reactive. Conjunctivae clear. Nonicteric sclerae. Oral mucosa normal. NECK: Supple. No JVD, adenopathy, or thyromegaly. Trachea in the midline. CARDIOVASCULAR: Regular rate and rhythm. Normal S1, S2. No murmurs, rubs, or gallops. PULMONARY: Bilateral equal air entry. Occ wheeze . Overall diminished. No crackles. ABDOMEN: Soft, nontender. No distention. Positive bowel sounds. EXTREMITIES: No cyanosis, clubbing, or edema. NEUROLOGIC: No focal motor or sensory deficit. Assessment and Plan Assessment and Plan IMPRESSION: 1. Acute hypercapnic and hypoxemic respiratory failure. 2. Chronic obstructive pulmonary disease exacerbation. 3. Positive influenza. 4. Hyponatremia. 5. Mild elevation in troponin. 6. Moderate mitral stenosis. 7. Hypertension. 8. Left Lung nodule Plan : 1 PT and OT 2. O2 at 2 L. 3. Duonebs qid. 4. Levaquin 500 mg dailyX5 5. Will need PET CT scan as OP. 6. Cont Prednisone 20 mg BID and taper 7. OK to Rehab. 8. Symbicort 160/4.5 mcg , 2puffs bid 9. Will see as OP in 2 weeks Cara Whitaker MD Jul 03, 2017 17:49
[2017-07-04] VITALS: BP 123/59; PULSE 74; RESP 16; TEMP 98.5; O2SAT 94
[2017-07-04] MEDS: CHLORHEXIDINE GLUCONATE 2 % 1 PACK (2 CLOTHS) TOP SCH (03:52)
[2017-07-04] MEDS: DILTIAZEM HCL 30 MG TAB PO SCH (06:18)
[2017-07-04] MEDS: RESP: ALBUTEROL 2.5 MG/IPRATROPIUM 0.5 MG NEB (SCH) NEB (07:33)
[2017-07-04 07:35] VITALS: O2SAT 95
[2017-07-04 07:50] VITALS: BP 140/68; PULSE 84; RESP 20; TEMP 97.7; O2SAT 90
[2017-07-04] MEDS: INSULIN NovoLIN REGULAR SUPPLEMENTAL SCALE SQ SCH (08:00)
[2017-07-04] MEDS: amLODIPine BESYLATE 5 MG TAB PO SCH (09:32)
[2017-07-04] MEDS: FAMOTIDINE 20 MG TAB PO SCH (09:32)
[2017-07-04] MEDS: HYDROCHLOROTHIAZIDE 12.5 MG CAP PO SCH (09:32)
[2017-07-04] MEDS: LOSARTAN 50 MG TAB PO SCH (09:32)
[2017-07-04] MEDS: predniSONE 20 MG TAB PO SCH (09:32)
[2017-07-04] MEDS: HEPARIN SODIUM - SQ 10,000 UNITS/ML VIAL SQ SCH (09:33)
[2017-07-04] MEDS: BUDESONIDE-FORMOTEROL 160/4.5 MCG INHALER INH SCH (09:33)
[2017-07-04] MEDS ORDERED: WALKER WHEELS/F1 MIS (10:18)
--- NOTE | 2017-07-04 11:48 | HHI.PR ---
Subjective Remarks Patient seen and examined today for follow-up on COPD exacerbation. Patient has been officially discharged on 07/03/17. However still awaiting insurance authorization for placement to custodial facility. Patient was seen today and she denies any new complaints. She does have apprehension about going to a custodial facility, however her family wants her to go there at this time. Objective Vitals Vital Signs Date Time Temp Pulse Resp B/P (MAP) Pulse Ox O2 Delivery O2 Flow Rate FiO2 07/04/17 07:50 97.7 84 20 140/68 (92) 90 07/04/17 07:35 95 Nasal Cannula 3.00 07/04/17 00:00 98.5 74 16 123/59 (80) 94 Manual Cuff/Auscultation 07/03/17 20:40 97.1 85 20 141/56 (84) 95 07/03/17 19:50 93 Nasal Cannula 3.00 07/03/17 17:05 168/62 (97) 07/03/17 16:00 97.3 91 14 165/81 (109) 91 07/03/17 12:00 97.1 91 16 129/68 (88) 94 I/O 07/03/17 07/03/17 07/03/17 07/04/17 07/04/17 07/04/17 07:00 15:00 23:00 07:00 15:00 23:00 Intake Total 120 ml 120 ml 200 ml Output Total 125 ml Balance 120 ml 120 ml 75 ml Intake Oral 120 ml 120 ml 200 ml Output Urine Total 125 ml # Voids 2 4 # Bowel Movements 3 Result Diagram: 07/02/1715 07/02/17 0615 Objective Remarks GENERAL: Well-developed, well-nourished, in no acute distress. alert and orientated HEENT: Head is normocephalic without any lesions or masses noted. Facial features are symmetric. Eyes: Extraocular muscles are intact. Conjunctivae were clear. NECK: Supple without any masses. Trachea midline no deviation. No JVD, CARDIAC: Regular rhythm, regular rate. S1/S2 are heard. 2/6 ejection murmur, no gallops or rubs. LUNGS: Clear to auscultation bilaterally. No wheeze, rhonchi or rales. No use of accessory muscles on inspiration or expiration. ABDOMEN: Soft, nontender. Nondistended. Bowel sounds heard in all 4 quadrants. No organomegaly or masses. Negative rebound, negative guarding EXTREMITIES: No edema, pulses are equal bilaterally. No cyanosis or clubbing NEUROLOGY: Mood and affect appear appropriate. Cranial nerves II through XII grossly intact. Moving all extremities, speech is clear Procedures None Urinary Catheter: No Vascular Central Line Catheter: No A/P Assessment and Plan Acute on chronic hypercapnic, hypoxic respiratory failure secondary to chronic obstructive pulmonary disease exacerbation, influenza infection; resolved Continue O2 sat mentation maintain O2 sats greater than 92%. Patient completed antibiotic and antiviral treatment. Continue DuoNeb every 6 hours while awake and every 2 hours as needed Continue Symbicort Continue to wean p.o. prednisone Hypertension, blood pressure improved Amlodipine 2.5 mg daily Cardizem 30 mg every 6 hours, changed to Cardizem CD 120 mg daily HCTZ 12.5 mg daily Losartan 100 mg daily Electrolyte abnormalities with hypokalemia, hyponatremia, improved Continue monitor sodium level Monitor electrolyte and replete as needed DVT prevention Subcutaneous heparin Sequential compression devices Discharge Planning Patient has been discharged to custodial facility, however still awaiting insurance authorization. However, if insurance authorization cannot be obtained. Patient will need be discharged home with home health care. Physical therapy indicates patient should have a walker at home. Yosi Britt Jul 04, 2017 11:48
[2017-07-04 11:50] VITALS: BP 150/66; PULSE 85; RESP 20; TEMP 97.7; O2SAT 95
[2017-07-04] MEDS ORDERED: DILTIAZEM-CD 120 MG CAP ER PO SCH (12:00)
[2017-07-04 13:30] VITALS: O2SAT 100
[2017-07-04] MEDS ORDERED: RESP: ALBUTEROL 2.5 MG/IPRATROPIUM 0.5 MG NEB (SCH) NEB (14:00)
== END 2017-07-04 15:48 | DRG 189 ==
LOC: PHED 06:58 → PHEDA 09:44 → PHICU 10:47 → PH3B 06-29 18:54
PROVIDERS: ADMIT Hospitalist; ATTEND Hospitalist
PROC: 5A09357 Assistance with Respiratory Ventilation, Less than 24 Consecutive Hours, Continuous Positive Airway Pressure (ICD-10-PCS; principal; 2017-06-25)
DX: J96.21 Acute and chronic respiratory failure with hypoxia (principal); E87.1 Hypo-osmolality and hyponatremia; I12.9 Hypertensive chronic kidney disease with stage 1 through stage 4 chronic kidney disease, or unspecified chronic kidney disease; N18.3 Chronic kidney disease, stage 3 (moderate); Z99.81 Dependence on supplemental oxygen; J44.1 Chronic obstructive pulmonary disease with (acute) exacerbation; J96.22 Acute and chronic respiratory failure with hypercapnia; J10.1 Influenza due to other identified influenza virus with other respiratory manifestations; I05.0 Rheumatic mitral stenosis; F41.9 Anxiety disorder, unspecified; F17.210 Nicotine dependence, cigarettes, uncomplicated; Z79.82 Long term (current) use of aspirin; R74.8 Abnormal levels of other serum enzymes; R91.1 Solitary pulmonary nodule; E87.6 Hypokalemia; Z87.01 Personal history of pneumonia (recurrent)
CPT/HCPCS: 36600; 71045; 71260; 80048; 80053; 81001; 82550; 82805; 82948; 83735; 83880; 84100; 84484; 85025; 85610; 85730; 87040; 87070; 87205; 87641; 87804; 93005; 93306; 94002; 94003; 94060; 94640; 94664; 96374; J1120; J1644; J2920; J2930; J7030; J7512; Q9967

== ENCOUNTER 2017-07-15 18:21 | Inpatient (IN) | payer OTHER, MEDICARE ==
[2017-07-15] VITALS (7 sets, daily range): BP systolic 111–131; BP diastolic 56–78; PULSE 68–78; RESP 18; TEMP 97.9; O2SAT 98–100
[~2017-07-15] VITALS: Ht 165.1 cm; Wt 55.0 kg
[~2017-07-15 18:21] MED LIST changes: -AMLO2.5T PO; -AMOX250C PO; -CLIN1CAP5 PO; +DILT120C50 PO; -HYZA100T6 PO; +IPRASOL INH; -LATA0.00 EACH EYE; -LORTA5 PO; +LOSA100T3 PO; +PRED10PA PO; +WALKER WHEELS/F1 MIS; -Z.0.OXYGEN INH; +oxygen NAS.CANULA
[2017-07-15] MEDS ORDERED: SODIUM CHLOR 0.9% 1000 ML INJ 1,000 ML IV ONE (18:26)
[2017-07-15 18:51] LABS: AUTOMATED NEUTROPHIL # 7.3 TH/MM3 (1.8-7.7); BASOPHIL % 0.6 % (0.0-2.0); EOSINOPHIL % 0.4 % (0.0-4.0); HEMATOCRIT 28.6 % (35.0-46.0); HEMOGLOBIN 9.8 GM/DL (11.6-15.3); LYMPH % 6.4 % (9.0-44.0); LYMPHOCYTE # 0.5 TH/MM3 (1.0-4.8); MEAN CELL VOLUME 87.7 FL (80.0-100.0); MEAN CORPUSCULAR HEMOGLOBIN 29.9 PG (27.0-34.0); MEAN CORPUSCULAR HGB CONC 34.1 % (32.0-36.0); MEAN PLATELET VOLUME 8.6 FL (7.0-11.0); MONO % 6.1 % (0.0-8.0); MONOCYTE # 0.5 TH/MM3 (0-0.9); NEUT % 86.5 % (16.0-70.0); PLATELET COUNT 114 TH/MM3 (150-450); RED BLOOD COUNT 3.26 MIL/MM3 (4.00-5.30); RED CELL DISTRIBUTION WIDTH 14.4 % (11.6-17.2); WHITE BLOOD COUNT 8.4 TH/MM3 (4.0-11.0)
[2017-07-15] MEDS: PROPOFOL 1000 MG/100 ML INJ 100 ML IV PRN (18:56)
[2017-07-15 19:02] LABS: INTERNATIONAL NORMALIZED RATIO 0.9 RATIO; PROTHROMBIN TIME - PATIENT 9.6 SEC (9.8-11.6)
--- NOTE | 2017-07-15 19:16 | PD ---
HPI Chief Complaint: Respiratory Distress Time Seen by Provider: 18:25 Travel History International Travel<30 days: No Contact w/Intl Traveler<30days: No Traveled to known affect area: No History of Present Illness HPI Patient is a 77-year-old female who is brought in by EMS from her rehabilitation facility due to respiratory arrest. Per EMS, she is found to be apneic on arrival. She was at rehabilitation after a stay in the hospital for pneumonia and influenza. She does have a history of COPD and a suspicious lung mass. Per son, patient had abnormal results from blood work drawn on Saturday at the rehabilitation facility. He says her sodium was 116. Patient is intubated and unresponsive, unable to provide any history. PFSH Past Medical History Hx Anticoagulant Therapy: Yes (BABY ASA DAILY) Asthma: Yes (IN CHILDHOOD) Autoimmune Disease: No Anxiety: Yes Depression: No Heart Rhythm Problems: Yes (recalls episode treated for "fast heart rate") Cancer: No Cardiovascular Problems: Yes High Cholesterol: No Cirrhosis: Yes (KIDNEY DISEASE CHRONIC STAGE III) COPD: Yes Diabetes: No Diminished Hearing: No Diverticulitis: Yes Endocrine: No Gastrointestinal Disorders: No Genitourinary: No Hypertension: Yes Immune Disorder: No Implanted Vascular Access Dvce: No Musculoskeletal: No Neurologic: No Psychiatric: Yes Reproductive: Yes (BLOCKED FALLOPIAN TUBES) Respiratory: Yes (copd) Immunizations Current: Yes Migraines: Yes Sleep Apnea: No Thyroid Disease: No Menopausal: Yes Past Surgical History Cardiac Surgery: No Eye Surgery: Yes (LEXIE CATARACT) Gynecologic Surgery: Yes (total hysterectomy) Hysterectomy: Yes Neurologic Surgery: No Other Surgery: Yes Social History Alcohol Use: Yes (OCC) Tobacco Use: Yes (3 cigarettes/day) Substance Use: No Allergies-Medications (Allergen,Severity, Reaction): Coded Allergies: No Known Allergies (Unverified Allergy, Unknown, 07/15/17) Reported Meds & Prescriptions Reported Meds & Active Scripts Active Diltiazem CD 24 HR 120 Mg Caper 120 Mg PO DAILY Reported Xanax (Alprazolam) 0.25 Mg Tab 0.25 Mg PO Q8H PRN Imodium A-D (Loperamide HCl) 2 Mg Capsule 2 Mg PO DIRECTED PRN One capsule after each loose stool. Not to exceed 8 tablets per day. Acidophilus-Pectin Tab Chew (Lactobacillus Acidophilus/Pect) 1 Each Tab.chew 1 Tab PO Q8HR Sodium Chloride 1 Gram Tab 1 Gm PO TID 3 Days Magnesium Oxide 500 Mg Tab 500 Mg PO BID Calcium Carbonate 500 Mg Calcium (1250 Mg) Tab 1,000 Mg PO BID 1,250 mg calcium carbonate (500 mg elemental calcium) Losartan-Hydrochlorothiazide 100-25 Mg Tab 1 Tab PO DAILY [oxygen] 2 Liter RAHUL.CANULA CONTINUOUS Duoneb (Ipratropium-Albuterol Neb) 0.5-2.5 Mg/3 Ml Neb 1 Nebule INH Q6HR NEB PRN Breo Ellipta Inh (Fluticasone/Vilanterol) 100-25 Mcg/Act Inh 1 Puff INH DAILY Use daily at the same time. Review of Systems ROS Limitations: Unresponsive Physical Exam Narrative GENERAL: Unresponsive, intubated. SKIN: Focused skin assessment warm/dry. HEAD: Atraumatic. Normocephalic. EYES: Pupils pinpoint bilaterally. No scleral icterus. ENT: No nasal bleeding or discharge. Mucous membranes pink and moist. NECK: Trachea midline. No JVD. CARDIOVASCULAR: Regular rate and rhythm. No murmur appreciated. RESPIRATORY: No accessory muscle use. Decreased breath sounds bilaterally. Breath sounds equal bilaterally. GASTROINTESTINAL: Abdomen soft, non-tender, nondistended. MUSCULOSKELETAL: No obvious deformities. No clubbing. No cyanosis. No edema. NEUROLOGICAL: Unresponsive, but moving her upper extremities. Data Data Last Documented VS Vital Signs Date Time Temp Pulse Resp B/P (MAP) Pulse Ox O2 Delivery O2 Flow Rate FiO2 07/15/17 19:26 69 18 127/59 (81) 100 Auto-Vent 50 07/15/17 18:24 97.9 Orders Orders Electrocardiogram (07/15/17 18:26) Complete Blood Count With Diff (07/15/17 18:26) Comprehensive Metabolic Panel (07/15/17 18:26) Prothrombin Time / Inr (Pt) (07/15/17 18:26) Act Partial Throm Time (Ptt) (07/15/17 18:26) Lactic Acid Sepsis Protocol (07/15/17 18:26) Troponin I (07/15/17 18:26) Urinalysis - C+S If Indicated (07/15/17 18:26) Blood Culture (07/15/17 18:26) Chest, Single Ap (07/15/17 18:26) Blood Glucose (07/15/17 18:26) Ecg Monitoring (07/15/17 18:26) Iv Access Insert/Monitor (07/15/17 18:26) Oximetry (07/15/17 18:26) Oxygen Administration (07/15/17 18:26) Sodium Chlor 0.9% 1000 Ml Inj (Ns 1000 M (07/15/17 18:26) Propofol 1000 Mg/100 Ml Inj (Diprivan 10 (07/15/17 18:30) Albuterol-Ipratropium Neb (Duoneb Neb) (07/15/17 18:45) Chest, Single Ap (07/15/17 ) Ct Brain W/O Iv Contrast(Rout) (07/15/17 ) Piperacil-Tazo 3.375 Gm Premix (Zosyn 3. (07/15/17 19:45) Vancomycin Inj (Vancomycin Inj) (07/15/17 19:45) Urinary Catheter Management CARMEL.Q8H (07/15/17 19:35) Admit Order (Ed Use Only) (07/15/17 ) Labs Laboratory Tests Test 07/15/17 18:30 07/15/17 18:58 White Blood Count 8.4 TH/MM3 Red Blood Count 3.26 MIL/MM3 Hemoglobin 9.8 GM/DL Hematocrit 28.6 % Mean Corpuscular Volume 87.7 FL Mean Corpuscular Hemoglobin 29.9 PG Mean Corpuscular Hemoglobin Concent 34.1 % Red Cell Distribution Width 14.4 % Platelet Count 114 TH/MM3 Mean Platelet Volume 8.6 FL Neutrophils (%) (Auto) 86.5 % Lymphocytes (%) (Auto) 6.4 % Monocytes (%) (Auto) 6.1 % Eosinophils (%) (Auto) 0.4 % Basophils (%) (Auto) 0.6 % Neutrophils # (Auto) 7.3 TH/MM3 Lymphocytes # (Auto) 0.5 TH/MM3 Monocytes # (Auto) 0.5 TH/MM3 Eosinophils # (Auto) 0.0 TH/MM3 Basophils # (Auto) 0.0 TH/MM3 CBC Comment DIFF FINAL Differential Comment Prothrombin Time 9.6 SEC Prothromb Time International Ratio 0.9 RATIO Activated Partial Thromboplast Time 23.3 SEC Blood Urea Nitrogen 22 MG/DL Creatinine 0.62 MG/DL Random Glucose 123 MG/DL Total Protein 6.0 GM/DL Albumin 3.0 GM/DL Calcium Level 8.2 MG/DL Alkaline Phosphatase 54 U/L Aspartate Amino Transf (AST/SGOT) 25 U/L Alanine Aminotransferase (ALT/SGPT) 36 U/L Total Bilirubin 0.4 MG/DL Sodium Level 131 MEQ/L Potassium Level 4.5 MEQ/L Chloride Level 89 MEQ/L Carbon Dioxide Level 38.2 MEQ/L Anion Gap 4 MEQ/L Estimat Glomerular Filtration Rate 93 ML/MIN Troponin I 0.03 NG/ML Urine Color YELLOW Urine Turbidity HAZY Urine pH 5.0 Urine Specific [place] 1.018 Urine Protein TRACE mg/dL Urine Glucose (UA) NEG mg/dL Urine Ketones NEG mg/dL Urine Occult Blood TRACE Urine Nitrite NEG Urine Bilirubin NEG Urine Urobilinogen LESS THAN 2.0 MG/DL Urine Leukocyte Esterase NEG Urine RBC 3 /hpf Urine Uric Acid Crystals MANY /hpf Urine Amorphous Sediment RARE Urine Mucus FEW /lpf Microscopic Urinalysis Comment CATH-CULT NOT IND Lactic Acid Level 1.4 mmol/L MDM Medical Decision Making Medical Screen Exam Complete: Yes Emergency Medical Condition: Yes Medical Record Reviewed: Yes Interpretation(s) ECG shows normal sinus rhythm at a rate of 72, ST depression in leads V5 through V6. Differential Diagnosis Pneumonia versus COPD exacerbation versus hyponatremia versus sepsis Narrative Course Patient is a 77-year-old female who comes in unresponsive from the rehabilitation facility. Patient was intubated by EMS prior to arrival. IV established, labs sent. Chest x-ray performed shows the tube to be too high, it was advanced further. Patient sedated with propofol. Given 3 duo nebs. Covered with antibiotics. Given propofol for sedation. CT head ordered. Patient admitted for further management. Critical Care Narrative Aggregate critical care time was 35 minutes. Time to perform other separately billable procedures was not included in the critical care time. My time did not include minutes spent treating any other patients simultaneously or on activities that did not directly contribute to the patient's treatment. The services I provided to this patient were to treat and/or prevent clinically significant deterioration that could result in: Serious illness or I provided critical care services requiring my management, as noted below: Chart data review, documentation time, medication orders and management, vital sign assessments/reviewing monitor data, ordering and reviewing lab tests, ordering and interpreting/reviewing x-rays and diagnostic studies, care of the patient and discussion of the patient with the admitting physicians. Diagnosis Primary Impression: COPD exacerbation Additional Impressions: Respiratory failure, acute Qualified Codes: J96.01 - Acute respiratory failure with hypoxia Pneumonia Qualified Codes: J18.1 - Lobar pneumonia, unspecified organism Admitting Information Admitting Physician Requests: it Kimberlyn Gaytan MD Jul 15, 2017 19:16
[2017-07-15 19:17] LABS: ALT (GPT) 36 U/L (10-53)
[2017-07-15] MEDS ORDERED: SODI1TAB PO (19:20)
[2017-07-15] MEDS ORDERED: MAGN500T2 PO (19:20)
[2017-07-15] MEDS ORDERED: CALC12502 PO (19:20)
[2017-07-15] MEDS ORDERED: LOSA100T2 PO (19:20)
[2017-07-15] MEDS ORDERED: LACT1TAB PO (19:20)
[2017-07-15 19:21] LABS: ALKALINE PHOSPHATASE 54 U/L (45-117); TOTAL BILIRUBIN ADULT 0.4 MG/DL (0.2-1.0); TROPONIN I 0.03 NG/ML (0.02-0.05)
[2017-07-15 19:23] LABS: AST (GOT) 25 U/L (15-37); BICARBONATE 38.2 MEQ/L (21.0-32.0); BLOOD UREA NITROGEN 22 MG/DL (7-18); CALCIUM 8.2 MG/DL (8.5-10.1); CHLORIDE 89 MEQ/L (98-107); CREATININE 0.62 MG/DL (0.50-1.00); GLOMERULAR FILTRATION RATE 93 ML/MIN (>89); GLUCOSE,RANDOM 123 MG/DL (74-106); SODIUM (NA) 131 MEQ/L (136-145)
[2017-07-15] MEDS ORDERED: LOPE-1 PO (19:24)
[2017-07-15] MEDS ORDERED: ALPR.25 PO (19:24)
--- NOTE | 2017-07-15 19:27 | RADRPT ---
EXAM DATE/TIME: 07/15/2017 18:31 [facility] COMPARISON: No previous studies available for comparison. INDICATIONS : Evaluate intubation MEDICAL HISTORY : None. Chronic obstructive pulmonary disease. Hypertension SURGICAL HISTORY : None. ENCOUNTER: Initial ACUITY: 1 day PAIN SCORE: Non-responsive. LOCATION: chest FINDINGS: A single view of the chest demonstrates endotracheal tube in good position. Basilar air space disease with small effusions. No pneumothorax. CONCLUSION: 1. Basilar air space disease with small pleural effusions. Endotracheal tube in good position. Mild c ardiomegaly. Estrada Willis MD on July 15, 2017 at 19:23 Board Certified Radiologist. This report was verified electronically.
[2017-07-15 19:33] LABS: AMORPHOUS SEDIMENT, URINE RARE; BILIRUBIN, URINE NEG (NEG); BLOOD, URINE TRACE (NEG); GLUCOSE,URINE NEG (NEG); KETONE, URINE NEG (NEG); MUCUS URINE FEW /lpf (OCC); NITRITE,URINE NEG (NEG); URIC ACID CRYSTALS, URINE MANY /hpf; URINE COLOR YELLOW (YELLW/STRAW); URINE LEUKOCYTE ESTERASE NEG (NEG)
[2017-07-15] MEDS ORDERED: VANCOMYCIN INJ 1,250 MG in SODIUM CHLOR 0.9% 250 ML INJ 250 ML IV ONE (19:45)
[2017-07-15] MEDS ORDERED: PIPERACIL-TAZO 3.375 GM PREMIX 50 ML IV ONE (19:45)
--- NOTE | 2017-07-15 19:56 | RADRPT ---
EXAM DATE/TIME: 07/15/2017 19:20 [facility] COMPARISON: CHEST SINGLE AP, July 15, 2017, 18:31. INDICATIONS : ET tube advancement. MEDICAL HISTORY : Chronic obstructive pulmonary disease. Hypertension SURGICAL HISTORY : None. ENCOUNTER: Subsequent ACUITY: 1 day PAIN SCORE: Non-responsive. LOCATION: Bilateral chest FINDINGS: A single view of the chest demonstrates endotracheal tube in good position. NG enters stomach. Bilate ral mostly basilar airspace disease. Small effusions. No pneumothorax. CONCLUSION: 1. Bilateral mostly basilar airspace disease with small effusions. Endotracheal tube and nasogastric tube in good position. Estrada Willis MD on July 15, 2017 at 19:53 Board Certified Radiologist. This report was verified electronically.
[2017-07-15] MEDS: RESP: ALBUTEROL 2.5 MG/IPRATROPIUM 0.5 MG NEB (SCH) INH ×2 (20:49→20:50)
--- NOTE | 2017-07-15 22:39 | HHI.HP ---
HPI Service Critical Care Medicine Primary Care Physician Morgan Mazariegos MD Admission Diagnosis respiratory failure, COPD, pneumonia Diagnosis: Travel History International Travel<30 Days: No Contact w/Intl Traveler <30 Da: No Traveled to Known Affected Are: No History of Present Illness 77 yo WF with PMH of COPD on 2 L home O2, hypertension. She was recently admitted to [facility] 06/25/17- 07/03/17 due to acute COPD exacerbation with acute on chronic hypercapnic respiratory failure that was triggered by influenza A. She was discharged to SNF. Reportedly she was doing reasonably well and participating in rehab. She had an episode of respiratory distress around 1 AM on 07/15 and another episode later in the evening which prompted staff to call [facility]. When [facility] arrived she was intubated at the scene due to apnea. She received 1 L normal saline bolus, vancomycin, Zosyn, DuoNeb 3 in the emergency department. Critical care medicine is consulted for admission. She is afebrile with no leukocytosis. CXR with bibasilar opacities. She has chronic CO2 retention Review of Systems ROS Limitations: Intubated Constitutional: DENIES: Fever Past Family Social History Allergies: Coded Allergies: No Known Allergies (Unverified Allergy, Unknown, 07/15/17) Past Medical History COPD on 2 L home O2. Prior episodes of resp failure requiring Bipap with admission early this month and in 2013. Anxiety Hypertension Tobacco abuse Mitral valve disease Past Surgical History Lasik surgery hysterectomy Reported Medications DuoNeb every 6 hours Diltiazem CD 120 mill grams by mouth daily Losartan/HCTZ 100/25 one by mouth daily Xanax 0.25 mill grams by mouth every 6 hours Calcium carbonate 1000 mg by mouth twice a day Sodium chloride 1 g by mouth 3 times a day Breo Ellipta 100/25 1 puff inhaled daily Magnesium oxide 500 mg by mouth twice a day Imodium as needed Lactobacillus one tab by mouth every 8 hour Family History Mother lived to age 90 with no significant medical problems Father in his 30s or 40s. Son states he believes it was from either a stroke or [place] Social History She has a long-term history of smoking with ongoing use of a few cigarettes per day Physical Exam Vital Signs Vital Signs Date Time Temp Pulse Resp B/P (MAP) Pulse Ox O2 Delivery O2 Flow Rate FiO2 07/15/17 21:05 99 50 07/15/17 21:01 78 18 130/78 (95) 100 Auto-Vent 50 07/15/17 19:26 69 18 127/59 (81) 100 Auto-Vent 50 07/15/17 19:04 78 18 100 Ventilator 100 07/15/17 18:59 100 07/15/17 18:32 100 100 07/15/17 18:32 18 100 Ventilator 100 07/15/17 18:30 100 07/15/17 18:24 97.9 68 18 131/67 (88) 98 Physical Exam GENERAL: Elderly female who is orotracheally intubated and has been placed under sedation with propofol. SKIN: Warm and dry. HEAD: Atraumatic. Normocephalic. EYES: Pupils equal and round, 2 mm and reactive bilaterally. No scleral icterus. No injection or drainage. ENT: No nasal bleeding or discharge. Mucous membranes pink and moist. NECK: Trachea midline. No JVD. CARDIOVASCULAR: Regular rate and rhythm. 3/6 systolic murmur left apex RESPIRATORY: Prolonged expiratory phase bilaterally with wheeze GASTROINTESTINAL: Abdomen soft, non-tender, nondistended. Bowel sounds present. MUSCULOSKELETAL: Extremities without clubbing, cyanosis, or edema. NEUROLOGICAL: Eyes open intermittently to stimulation.. Moves all extremities purposefully Laboratory Laboratory Tests Test 07/15/17 18:30 07/15/17 18:58 07/15/17 20:51 White Blood Count 8.4 Red Blood Count 3.26 Hemoglobin 9.8 Hematocrit 28.6 Mean Corpuscular Volume 87.7 Mean Corpuscular Hemoglobin 29.9 Mean Corpuscular Hemoglobin Concent 34.1 Red Cell Distribution Width 14.4 Platelet Count 114 Mean Platelet Volume 8.6 Neutrophils (%) (Auto) 86.5 Lymphocytes (%) (Auto) 6.4 Monocytes (%) (Auto) 6.1 Eosinophils (%) (Auto) 0.4 Basophils (%) (Auto) 0.6 Neutrophils # (Auto) 7.3 Lymphocytes # (Auto) 0.5 Monocytes # (Auto) 0.5 Eosinophils # (Auto) 0.0 Basophils # (Auto) 0.0 CBC Comment DIFF FINAL Differential Comment Prothrombin Time 9.6 Prothromb Time International Ratio 0.9 Activated Partial Thromboplast Time 23.3 Blood Urea Nitrogen 22 Creatinine 0.62 Random Glucose 123 Total Protein 6.0 Albumin 3.0 Calcium Level 8.2 Alkaline Phosphatase 54 Aspartate Amino Transf (AST/SGOT) 25 Alanine Aminotransferase (ALT/SGPT) 36 Total Bilirubin 0.4 Sodium Level 131 Potassium Level 4.5 Chloride Level 89 Carbon Dioxide Level 38.2 Anion Gap 4 Estimat Glomerular Filtration Rate 93 Troponin I 0.03 Urine Color YELLOW Urine Turbidity HAZY Urine pH 5.0 Urine Specific [place] 1.018 Urine Protein TRACE Urine Glucose (UA) NEG Urine Ketones NEG Urine Occult Blood TRACE Urine Nitrite NEG Urine Bilirubin NEG Urine Urobilinogen LESS THAN 2.0 Urine Leukocyte Esterase NEG Urine RBC 3 Urine Uric Acid Crystals MANY Urine Amorphous Sediment RARE Urine Mucus FEW Microscopic Urinalysis Comment CATH-CULT NOT IND Lactic Acid Level 1.4 Blood Gas Puncture Site LT RADIAL Blood Gas Patient Temperature 98.6 Blood Gas HCO3 34 Blood Gas Base Excess 9.6 Blood Gas Oxygen Saturation 99 Arterial Blood pH 7.42 Arterial Blood Partial Pressure CO2 54 Arterial Blood Partial Pressure O2 469 Arterial Blood Oxygen Content 13.2 Arterial Blood Carboxyhemoglobin 0.9 Arterial Blood Methemoglobin 0.6 Blood Gas Hemoglobin 8.6 Oxygen Delivery Device VENTILATOR Blood Gas Ventilator Setting AC 18/500/5PEEP Blood Gas Inspired Oxygen 100 Date/Time Source Procedure Growth Status 07/15/17 18:58 Blood Peripheral Aerobic Blood Culture Pending Received 07/15/17 18:58 Blood Peripheral Anaerobic Blood Culture Pending Received Result Diagram: 07/15/17 1830 07/15/17 1830 Caprini VTE Risk Assessment Caprini VTE Risk Assessment: Mod/High Risk (score >= 2) Caprini Risk Assessment Model Point Value = 1 Point Value = 2 Point Value = 3 Point Value = 5 Age 41-60 Minor surgery BMI > 25 kg/m2 Swollen legs Varicose veins or History of unexplained or recurrent spontaneous Oral contraceptives or hormone replacement Sepsis (< 1 month) Serious lung disease, including pneumonia (< 1 month) Abnormal pulmonary function Acute myocardial infarction Congestive heart failure (< 1 month) History of inflammatory bowel disease Medical patient at bed rest Age 61-74 Arthroscopic surgery Major open surgery (> 45 min) Laparoscopic surgery (> 45 min) Malignancy Confined to bed (> 72 hours) Immobilizing plaster cast Central venous access Age >= 75 History of VTE Family history of VTE Factor V Leiden Prothrombin [id number] Lupus anticoagulant Anticardiolipin antibodies Elevated serum homocysteine Heparin-induced thrombocytopenia Other congenital or acquired thrombophilia Stroke (< 1 month) Elective arthroplasty Hip, pelvis, or leg fracture Acute spinal cord injury (< 1 month) Prophylaxis Regimen Total Risk Factor Score Risk Level Prophylaxis Regimen 0-1 Low Early ambulation 2 Moderate Order ONE of the following: *Sequential Compression Device (SCD) *Heparin 5000 units SQ BID 3-4 Higher Order ONE of the following medications: *Heparin 5000 units SQ TID *Enoxaparin/Lovenox 40 mg SQ daily (WT < 150 kg, CrCl > 30 mL/min) *Enoxaparin/Lovenox 30 mg SQ daily (WT < 150 kg, CrCl > 10-29 mL/min) *Enoxaparin/Lovenox 30 mg SQ BID (WT < 150 kg, CrCl > 30 mL/min) AND/OR *Sequential Compression Device (SCD) 5 or more Highest Order ONE of the following medications: *Heparin 5000 units SQ TID (Preferred with Epidurals) *Enoxaparin/Lovenox 40 mg SQ daily (WT < 150 kg, CrCl > 30 mL/min) *Enoxaparin/Lovenox 30 mg SQ daily (WT < 150 kg, CrCl > 10-29 mL/min) *Enoxaparin/Lovenox 30 mg SQ BID (WT < 150 kg, CrCl > 30 mL/min) AND *Sequential Compression Device (SCD) Assessment and Plan Assessment and Plan NEURO: Acute toxic metabolic encephalopathy likely related to CO2 retention Anxiety Propofol for sedation. Daily sedation vacation. CT brain no acute abnormality RESP: Acute on chronic hypercapnic respiratory failure COPD on chronic 2 L O2 12 mm TONNY spiculated mass suspicious for malignancy (On CT 06/25/17) Patient has advanced COPD. She has chronic CO2 retention with baseline CO2 high 60/low 70s. CT scan from 2013 with emphysema and fibrotic scarring 2 nebs every 4 hours. Albuterol every 2 hours as needed. Solu-Medrol 60 g IV every 6 hours. Chest x-ray with bibasilar opacities. Effusion on the right which was present previously on CT chest 06/25/17 Antibiotics as per below Has been seen by Dr. Coates in the past, lung mass not worked up. Ultrasound R pleural fluid to see if amenable to thoracentesis and could obtain cytology if patient/family wish to embark upon workup, though her overall condition and functional status is poor and I would not necessarily advocate for that. CV: Hypertension Mitral stenosis Monitor hemodynamic Followed by Dr. Janell Sharma for mitral valvular disease. Mild/moderate MR on Echo 02/25/14, moderate stenosis per Echo report 06/25/17. Hold diltiazem CD 120, use cardizem 30 q6 via OG. Hold losartan/HCTZ for now as this may cause hyponatremia. GI: OG tube to low intermittent suction. Initiate enteral feeds if not extubating within 24 hours FEN/RENAL: Hyponatremia Patient was treated for hyponatremia with sodium of 116 on 07/11. Sodium was 118 on 07/12 and then 130 on 07/15 so trend of correction appears appropriate. Has been on sodium 1 gram po tid, will continue. Tee in place. Monitor intake and output. Monitor electrolytes and replace as indicated. ID: h/o Influenza 06/25/17. CXR with bibasilar opacities. Has been treated empirically for HCAP with Zosyn and vancomycin and will continue pending cultures. Obtain sputum culture. Follow-up blood cultures. HEME: Monitor CBC ENDO: Euglycemic PROPH: SCDs for DVT prophylaxis. Lovenox 40 mg subcutaneous daily for DVT prophylaxis. Famotidiine for stres ulcer prophylaxis. ACCESS: Peripheral IV providing adequate access at this time Patient's son Alvino is adamant that when she was at [facility] she stated that she was okay with being on oxygen mask but never wanted to be on the ventilator, even if "life or ". He states that he knows she definitely would not want long term care phlebotomist mechanical ventilation. Discussed that she may improve to where she could be extubated. If she is extubated she would be at high risk for recurrent respiratory failure in the next days to months. However, she may be able to participate in medical decision-making. There is documentation from the SNF where patient had said she was FULL CODE but did not want to remain on a ventilator for vegetative state. Patient currently lacks capacity for medical decision-making and her son states that she would not want CPR for pulseless arrest. She is designated alternate code, intubation only. ( is . She has another son Juan Manuel and an additional son who is reportedly not capacitated for medical decision making). Alvino believes that she filled out healthcare surrogate paperwork at [facility], however I cannot find this documentation. Will consult palliative care for assistance with ensuring patient's wishes are honored. Alvino agrees with continuing mechanical ventilation at this time with efforts at liberation from mechancal ventilation but says "I need to honor my mom's wishes if she is not showing signs of improvement". ALT CODE INTUBATION ONLY. Treatment for Acute COPD exacerbation with efforts toward extubation, possibily extubate to Bipap. Palliative care consulted. Level III H&P Tigist To MD Jul 15, 2017 22:39
[2017-07-15] MEDS ORDERED: SODIUM CHLORIDE 0.9% FLUSH 10 ML FLUSH IV FLUSH PRN (22:45)
[2017-07-15] MEDS ORDERED: BISACODYL 10 MG SUPP RECTAL PRN (22:45)
[2017-07-15] MEDS ORDERED: SENNOSIDES 8.6 MG TAB PO PRN (22:45)
[2017-07-15] MEDS ORDERED: MAGNESIUM HYDROXIDE SUSP 30 ML CUP PO PRN (22:45)
[2017-07-15] MEDS ORDERED: LACTULOSE SYRUP 20 GM/30 ML CUP PO PRN (22:45)
[2017-07-15] MEDS ORDERED: CHLORHEXIDINE GLUCONATE 2 % 1 PACK (2 CLOTHS) TOP PRN (22:45)
[2017-07-15] MEDS ORDERED: MISCELLANEOUS NURSING INFORMATION XX SCH (22:45)
[2017-07-15] MEDS ORDERED: RESP: ALBUTEROL 2.5 MG/3 ML NEB (PRN) INH (22:45)
[2017-07-15] MEDS: methylPREDNISolone SOD SUCC 125 MG/2 ML VIAL IV PUSH SCH (23:33)
[2017-07-16] VITALS (21 sets, daily range): BP systolic 107–180; BP diastolic 55–78; PULSE 52–113; RESP 18–25; TEMP 97.8–99.8; O2SAT 96–100
--- NOTE | 2017-07-16 01:43 | RADRPT ---
EXAM DATE/TIME: 07/16/2017 01:34 [facility] COMPARISON: No previous studies available for comparison. INDICATIONS : Altered mental status. RADIATION DOSE: 33.71 CTDIvol (mGy) MEDICAL HISTORY : Cardiovascular disease. Hypertension. Chronic obstructive pulmonary disease. SURGICAL HISTORY : Hysterectomy. ENCOUNTER: Initial ACUITY: 1 day PAIN SCALE: Non-responsive LOCATION: cranial TECHNIQUE: Multiple contiguous axial images were obtained of the head. Using automated exposure control and adj ustment of the mA and/or kV according to patient size, radiation dose was kept as low as reasonably a chievable to obtain optimal diagnostic quality images. DICOM format image data is available electro nically for review and comparison. FINDINGS: CEREBRUM: The ventricles are normal for age. No evidence of midline shift, mass lesion, hemorrhage or acute in farction. No extra-axial fluid collections are seen. POSTERIOR FOSSA: The cerebellum and brainstem are intact. The 4th ventricle is midline. The cerebellopontine angle i s unremarkable. EXTRACRANIAL: The visualized portion of the orbits is intact. SKULL: The calvaria is intact. No evidence of skull fracture. CONCLUSION: No acute intracranial disease. Emmanuel Mcconnell MD on July 16, 2017 at 1:40 Board Certified Radiologist. This report was verified electronically.
[2017-07-16] MEDS: RESP: ALBUTEROL 2.5 MG/IPRATROPIUM 0.5 MG NEB (PRN) INH (02:28)
[2017-07-16] MEDS: CHLORHEXIDINE GLUCONATE 2 % 1 PACK (2 CLOTHS) TOP SCH (04:00)
[2017-07-16 05:25] LABS: AUTOMATED NEUTROPHIL # 7.7 TH/MM3 (1.8-7.7); BASOPHIL % 0.2 % (0.0-2.0); EOSINOPHIL % 0.1 % (0.0-4.0); HEMATOCRIT 27.9 % (35.0-46.0); HEMOGLOBIN 9.6 GM/DL (11.6-15.3); LYMPH % 2.7 % (9.0-44.0); LYMPHOCYTE # 0.2 TH/MM3 (1.0-4.8); MEAN CORPUSCULAR HEMOGLOBIN 29.5 PG (27.0-34.0); MEAN CORPUSCULAR HGB CONC 34.3 % (32.0-36.0); MEAN PLATELET VOLUME 8.8 FL (7.0-11.0); MONO % 2.9 % (0.0-8.0); MONOCYTE # 0.2 TH/MM3 (0-0.9); NEUT % 94.1 % (16.0-70.0); PLATELET COUNT 93 TH/MM3 (150-450); RED BLOOD COUNT 3.24 MIL/MM3 (4.00-5.30); RED CELL DISTRIBUTION WIDTH 14.5 % (11.6-17.2); WHITE BLOOD COUNT 8.2 TH/MM3 (4.0-11.0)
[2017-07-16 06:12] LABS: BICARBONATE 33.7 MEQ/L (21.0-32.0); CALCIUM 8.2 MG/DL (8.5-10.1); CREATININE 0.58 MG/DL (0.50-1.00)
[2017-07-16] MEDS ORDERED: POTASSIUM CHLORIDE 25 MEQ EFFERVESCENT TAB PO PRN (06:15)
[2017-07-16] MEDS ORDERED: POTASSIUM PHOSPHATE MONOBASIC 500 MG TAB PO PRN (06:15)
[2017-07-16] MEDS ORDERED: POTASSIUM PHOSPHATE INJ 30 MMOL in SODIUM CHLOR 0.9% 250 ML INJ 250 ML IV PRN (06:15)
[2017-07-16] MEDS ORDERED: MAGNESIUM OXIDE 400 MG TAB PO PRN (06:15)
[2017-07-16] MEDS ORDERED: POTASSIUM CHLOR 20 MEQ PREMIX 100 ML IV PRN (06:15)
[2017-07-16] MEDS ORDERED: MAGNESIUM SULFATE INJ 4 GM in SODIUM CHLORIDE 0.9% INJ 92 ML IV PRN (06:15)
[2017-07-16] MEDS ORDERED: MAGNESIUM SULFATE INJ 2 GM in SODIUM CHLORIDE 0.9% INJ 96 ML IV PRN (06:15)
[2017-07-16] MEDS ORDERED: POTASSIUM CHLOR 40 MEQ PREMIX 100 ML IV PRN ×2 (06:15)
[2017-07-16] MEDS ORDERED: SODIUM PHOSPHATE INJ 30 MMOL in SODIUM CHLOR 0.9% 250 ML INJ 240 ML IV PRN (06:15)
[2017-07-16] MEDS ORDERED: POTASSIUM PHOSPHATE MONOBASIC 500 MG TAB PO/TUBE PRN (06:15)
[2017-07-16] MEDS: ENOXAPARIN SODIUM 40 MG/0.4 ML SYRINGE SQ SCH (06:21)
[2017-07-16] MEDS: methylPREDNISolone SOD SUCC 125 MG/2 ML VIAL IV PUSH SCH ×3 (06:22→16:59)
[2017-07-16] MEDS: DILTIAZEM HCL 30 MG TAB PO SCH ×3 (06:22→15:26)
[2017-07-16] MEDS: PROPOFOL 1000 MG/100 ML INJ 100 ML IV PRN (06:22)
[2017-07-16] MEDS: PIPERACIL-TAZO 4.5 GM PREMIX 100 ML IV SCH ×3 (06:22→16:59)
[2017-07-16 06:49] LABS: OVALOCYTES 1+ (NORMAL)
[2017-07-16] MEDS: DOCUSATE SODIUM 50 MG/SENNA 8.6 MG TAB PO SCH ×2 (07:16→20:33)
[2017-07-16] MEDS: FAMOTIDINE 20 MG/2 ML VIAL IV PUSH SCH ×2 (07:16→20:33)
[2017-07-16] MEDS: SODIUM CHLORIDE 0.9% FLUSH 10 ML FLUSH IV FLUSH SCH ×2 (07:16→20:33)
[2017-07-16] MEDS: POTASSIUM CHLOR 20 MEQ PREMIX 100 ML IV PRN ×2 (07:53→10:50)
[2017-07-16] MEDS: SODIUM CHLORIDE 1 GRAM TAB PO SCH ×3 (10:13→16:54)
--- NOTE | 2017-07-16 10:27 | PD.CONS ---
Consult Service Palliative Care Consult Requested By Dr. To Primary Care Physician Morgan Mazariegos MD Reason for Consultation a. To assist with evaluation and management of symptoms including: Dyspnea b. To assist medical decision maker(s) with: better understanding of current medical conditions; weighing benefits/burdens of medical treatment options; making medical treatment decisions. HPI History of Present Illness Patient is a 77-year-old past medical history significant for COPD, and said to have a history of lung mass that has not been worked up, mitral valvular disease. Patient had a recent admission to [facility] secondary to COPD exacerbation triggered by influenza A. Patient was here from 06/25/2017 2 . Patient was discharged from SNF. Recently has abnormal labs showing hyponatremia. On 07/15/2017 around 1 AM patient had episode of dyspnea. When he EVAC arrived patient was apneic, patient was intubated in the field, and transported to the hospital. In the ER: * Temperature 97.9, pulse 68, respirations 18, blood pressure is 131/67, pulse ox is 98% on FiO2 of 100% * WBC 8.4, hemoglobin 9.8, hematocrit 28.6, platelets 114 * Sodium is 131, potassium is 4.5, chloride 99, bicarb is 138.2, BUNs 22, creatinine 0.62 * Glucose is 123, troponin IN 0.03, her albumin level is 3.0 * UA shows trace amount of occult blood, negative for nitrite and leukocyte esterase. Cultures not indicated * MRSA is negative * Blood culture 2 is pending. Sputum cultures also pending. * Head CT shows no acute intracranial disease. * Chest x-ray shows bilateral basilar disease with small effusions. Patient received IV fluids, vancomycin, Zosyn, duo nebs. Critical medicine was consulted, and patient was transferred to ICU. Solu-Medrol, breathing treatments were ordered. Patient has a right pleural effusion and ultrasound was ordered to see if amenable to for thoracentesis, and see if cytology could be obtained for further workup. Patient's son Alvino conveyed to the medical team that patient was okay with O2 mask but never wanted intubation.. Son state that she definitely would not want long-term mechanical ventilation. Is reported that patient is . So far the only reasonable relative has been Alvino, patient's son. Alvino believes that patient has filled out healthcare surrogate paperwork. Palliative care was consulted for assistance with goals of care. Patient is made an alternative code with intubation only for the time being. Pt on my visit open eyes briefly, but is lethargic. She remains intubated and sedated, on restraints. I spoke with pt's son Alvino who thinks during last hospitalization, some type of advance directive was completed. She stated a nurse and a physician witnessed the conversation in which she said she would not want intubation, nothing more aggressive than a mask. Alvino endorses he has a POA but that it is only financial. He endorse that pt has 2 children from previous marriage lAvino Cortes and Ruddy Cortes who is at [place], in which there is no contact information. Pt also have another son Armond Bae who will be here. Review pt's clinical condition, review [place] statuettes in regards to decision making. We have to follow order of priority for medical decisions. He state he understand. Function/Cognitive Trajectory O2 dependent, easily dyspneic with any exertion complicated by anxiety. Had been in [facility]. Review of Systems ROS Limitations: Clinical Condition Constitutional: COMPLAINS OF: Fatigue Eyes: DENIES: Diplopia, Eye inflammation Ears, nose, mouth, throat: DENIES: Throat pain, Hoarseness Respiratory: COMPLAINS OF: Shortness of breath Cardiovascular: DENIES: Chest pain, Palpitations Gastrointestinal: DENIES: Abdominal pain, Black stools, Bloody stools Psychiatric: COMPLAINS OF: Anxiety, Confusion Past Family Social History Coded Allergies: No Known Allergies (Unverified Allergy, Unknown, 07/15/17) Past Medical History Severe COPD noted by pulmonology, emphysema, valvular heart disease, anxiety, hypertension, tobacco abuse Past Surgical History Hysterectomy and cataract repair Current Medications Medications (Trade) Dose Ordered Sig/Maribel Route Start Time Stop Time Status Last Admin Propofol 100 ml @ 0 mls/hr TITRATE PRN IV 07/15/17 18:30 07/16/17 06:22 (NS Flush) 2 ml UNSCH PRN IV FLUSH 07/15/17 22:45 (NS Flush) 2 ml BID IV FLUSH 07/16/17 09:00 07/16/17 07:16 (Pepcid Inj) 20 mg Q12HR IV PUSH 07/16/17 09:00 07/16/17 07:16 (Zofran Inj) 4 mg Q6H PRN IV PUSH 07/15/17 22:45 (Duoneb Neb) 1 ampule Q4HR NEB PRN INH 07/15/17 22:45 07/16/17 02:28 (Albuterol Neb) 2.5 mg Q2HR NEB PRN INH 07/15/17 22:45 Miscellaneous Information 1 Q361D XX 07/15/17 22:45 (Chlorhexidine 2% Cloth) 3 pack Taper DAILY@04 TOP 07/16/17 04:00 07/12/18 03:59 07/16/17 04:00 (Chlorhexidine 2% Cloth) 3 pack UNSCH PRN TOP 07/15/17 22:45 (Corina-Colace) 1 tab BID PO 07/16/17 09:00 07/16/17 07:16 (Milk Of Magnesia Liq) 30 ml Q12H PRN PO 07/15/17 22:45 (Senokot) 17.2 mg Q12H PRN PO 07/15/17 22:45 (Dulcolax Supp) 10 mg DAILY PRN RECTAL 07/15/17 22:45 (Lactulose Liq) 30 ml DAILY PRN PO 07/15/17 22:45 (SoluMEDROL INJ) 60 mg Q6H IV PUSH 07/15/17 23:00 07/16/17 06:22 Piperacillin Sod/ Tazobactam Sod 100 ml @ 200 mls/hr Q6H IV 07/16/17 06:00 07/16/17 06:22 (Lovenox Inj) 40 mg Q24H SQ 07/16/17 06:00 07/16/17 06:21 (Sodium Chloride) 1 gm TID PO 07/16/17 09:00 (Cardizem) 30 mg Q6HR PO 07/16/17 06:00 07/16/17 06:22 Potassium Chloride 100 ml @ 50 mls/hr Q2H PRN IV 07/16/17 06:15 Potassium Chloride 100 ml @ 50 mls/hr Q2H PRN IV 07/16/17 06:15 (K-Lyte Cl Eff) 50 meq UNSCH PRN PO 07/16/17 06:15 Potassium Chloride 100 ml @ 25 mls/hr UNSCH PRN IV 3/27/18 06:15 Potassium Chloride 100 ml @ 50 mls/hr Q2H PRN IV 07/16/17 06:15 07/16/17 07:53 Magnesium Sulfate 4 gm/Sodium Chloride 100 ml @ 50 mls/hr UNSCH PRN IV 07/16/17 06:15 (Mag-Ox) 800 mg UNSCH PRN PO 07/16/17 06:15 Magnesium Sulfate 2 gm/Sodium Chloride 100 ml @ 50 mls/hr UNSCH PRN IV 07/16/17 06:15 (K-Phos) 2,000 mg Q4H PRN PO 07/16/17 06:15 Sodium Phosphate 30 mmol/Sodium Chloride 250 ml @ 42 mls/hr UNSCH PRN IV 07/16/17 06:15 (K-Phos) 2,000 mg UNSCH PRN PO/TUBE 07/16/17 06:15 Potassium Phosphate 30 mmol/ Sodium Chloride 260 ml @ 42 mls/hr UNSCH PRN IV 07/16/17 06:15 Family History unable to elicit. Substance Use Tobacco: yes Alcohol:no Prescription med abuse:no Illicits:no Psychosocial History x 2. Pt's last past away 8 years ago. Has 4 children: Alvino Cortes and Ruddy cortes is from a previous marriage. They live in [place] and per reachable son, they have been estranged. There is no contact information available. Armond Bae Alvino Bae (local and only reachable son). Spiritual/Cultural Factors Congregation Health Care Surrogate: Completed, but not made available (possibly completed but so far no available.) Physical Exam Vital Signs Date Time Temp Pulse Resp B/P (MAP) Pulse Ox O2 Delivery O2 Flow Rate FiO2 07/16/17 08:38 100 30 07/16/17 08:00 40 07/16/17 06:00 71 07/16/17 04:00 40 07/16/17 04:00 67 07/16/17 04:00 99.7 67 18 140/64 (89) 99 07/16/17 03:58 97 30 07/16/17 02:04 07/16/17 02:00 40 07/16/17 02:00 71 07/16/17 01:55 99.8 71 18 107/55 (72) 99 07/16/17 01:42 100 30 07/16/17 01:25 100 100 07/16/17 00:29 75 18 112/56 (74) 100 Auto-Vent 40 07/15/17 23:30 100 40 07/15/17 23:00 68 18 111/56 (74) 100 Auto-Vent 50 07/15/17 21:05 99 50 07/15/17 21:01 78 18 130/78 (95) 100 Auto-Vent 50 07/15/17 19:26 69 18 127/59 (81) 100 Auto-Vent 50 07/15/17 19:04 78 18 100 Ventilator 100 07/15/17 18:59 100 07/15/17 18:32 100 100 07/15/17 18:32 18 100 Ventilator 100 07/15/17 18:30 100 07/15/17 18:24 97.9 68 18 131/67 (88) 98 07/16/17 07/17/17 19:00 07:00 Intake Total 400 ml Balance 400 ml Intake IV Total 400 ml Exam CONSTITUTIONAL/GENERAL: This is lethargic lady, intubated sedated, on restraints. TUBES/LINES/DRAINS: SKIN: No jaundice, rashes, or lesions. Ecchymoses on upper extremities. No wounds seen anteriorly. Skin temperature appropriate. Not diaphoretic. HEAD: Atraumatic. Normocephalic. EYES: Briefly open eyes, lethargic. Confused, and on restraints. ENT: Hearing grossly normal. Nose without bleeding or purulent drainage. Throat ET tube, NECK: Trachea midline. Supple, nontender. No palpable thyroid enlargement or nodularity. CARDIOVASCULAR: RR. systolic murmur. RESPIRATORY/CHEST: Symmetric, unlabored respirations. Decreased breath sound bilaterally. GASTROINTESTINAL: Abdomen soft, non-tender, nondistended. No hepato-splenomegaly , or palpable masses. No guarding. Bowel sounds present. GENITOURINARY: Without palpable bladder distension. Tee catheter in place. MUSCULOSKELETAL: Extremities without clubbing, cyanosis, or edema. No joint tenderness or effusion noted. No calf tenderness. No mottling or clubbing. LYMPHATICS: No palpable cervical or supraclavicular adenopathy. NEUROLOGICAL: Intubated sedated, to awaken briefly on tactile stimulation. PSYCHIATRIC:could not evaluate given level of conciousness.. Diagnostic Tests Laboratory Laboratory Tests Test 07/15/17 18:30 07/15/17 18:58 07/15/17 20:51 07/16/17 02:00 White Blood Count 8.4 TH/MM3 (4.0-11.0) Red Blood Count 3.26 MIL/MM3 (4.00-5.30) Hemoglobin 9.8 GM/DL (11.6-15.3) Hematocrit 28.6 % (35.0-46.0) Mean Corpuscular Volume 87.7 FL (80.0-100.0) Mean Corpuscular Hemoglobin 29.9 PG (27.0-34.0) Mean Corpuscular Hemoglobin Concent 34.1 % (32.0-36.0) Red Cell Distribution Width 14.4 % (11.6-17.2) Platelet Count 114 TH/MM3 (150-450) Mean Platelet Volume 8.6 FL (7.0-11.0) Neutrophils (%) (Auto) 86.5 % (16.0-70.0) Lymphocytes (%) (Auto) 6.4 % (9.0-44.0) Monocytes (%) (Auto) 6.1 % (0.0-8.0) Eosinophils (%) (Auto) 0.4 % (0.0-4.0) Basophils (%) (Auto) 0.6 % (0.0-2.0) Neutrophils # (Auto) 7.3 TH/MM3 (1.8-7.7) Lymphocytes # (Auto) 0.5 TH/MM3 (1.0-4.8) Monocytes # (Auto) 0.5 TH/MM3 (0-0.9) Eosinophils # (Auto) 0.0 TH/MM3 (0-0.4) Basophils # (Auto) 0.0 TH/MM3 (0-0.2) CBC Comment DIFF FINAL Differential Comment Prothrombin Time 9.6 SEC (9.8-11.6) Prothromb Time International Ratio 0.9 RATIO Activated Partial Thromboplast Time 23.3 SEC (24.3-30.1) Blood Urea Nitrogen 22 MG/DL (7-18) Creatinine 0.62 MG/DL (0.50-1.00) Random Glucose 123 MG/DL (74-106) Total Protein 6.0 GM/DL (6.4-8.2) Albumin 3.0 GM/DL (3.4-5.0) Calcium Level 8.2 MG/DL (8.5-10.1) Alkaline Phosphatase 54 U/L (45-117) Aspartate Amino Transf (AST/SGOT) 25 U/L (15-37) Alanine Aminotransferase (ALT/SGPT) 36 U/L (10-53) Total Bilirubin 0.4 MG/DL (0.2-1.0) Sodium Level 131 MEQ/L (136-145) Potassium Level 4.5 MEQ/L (3.5-5.1) Chloride Level 89 MEQ/L (98-107) Carbon Dioxide Level 38.2 MEQ/L (21.0-32.0) Anion Gap 4 MEQ/L (5-15) Estimat Glomerular Filtration Rate 93 ML/MIN (>89) Troponin I 0.03 NG/ML (0.02-0.05) Urine Color YELLOW (YELLW/STRAW) Urine Turbidity HAZY (CLEAR) Urine pH 5.0 (5.0-8.5) Urine Specific [place] 1.018 (1.002-1.035) Urine Protein TRACE mg/dL (NEG-TRACE) Urine Glucose (UA) NEG mg/dL (NEG) Urine Ketones NEG mg/dL (NEG) Urine Occult Blood TRACE (NEG) Urine Nitrite NEG (NEG) Urine Bilirubin NEG (NEG) Urine Urobilinogen LESS THAN 2.0 MG/DL (LESS Urine Leukocyte Esterase NEG (NEG) Urine RBC 3 /hpf (0-3) Urine Uric Acid Crystals MANY /hpf (NONE) Urine Amorphous Sediment RARE Urine Mucus FEW /lpf (OCC) Microscopic Urinalysis Comment CATH-CULT NOT IND Lactic Acid Level 1.4 mmol/L (0.4-2.0) Blood Gas Puncture Site LT RADIAL Blood Gas Patient Temperature 98.6 Blood Gas HCO3 34 mmol/L (22-26) Blood Gas Base Excess 9.6 mmol/L (-2-2) Blood Gas Oxygen Saturation 99 % (90-100) Arterial Blood pH 7.42 (7.380-7.420) Arterial Blood Partial Pressure CO2 54 mmHg (38-42) Arterial Blood Partial Pressure O2 469 mmHG (61-120) Arterial Blood Oxygen Content 13.2 Vol % (12.0-20.0) Arterial Blood Carboxyhemoglobin 0.9 % (0-4) Arterial Blood Methemoglobin 0.6 % (0-2) Blood Gas Hemoglobin 8.6 G/DL (12.0-16.0) Oxygen Delivery Device VENTILATOR Blood Gas Ventilator Setting AC 18/500/5PEEP Blood Gas Inspired Oxygen 100 % Nasal Screen MRSA (PCR) MRSA NOT DETECTED (NOT Test 07/16/17 04:15 White Blood Count 8.2 TH/MM3 (4.0-11.0) Red Blood Count 3.24 MIL/MM3 (4.00-5.30) Hemoglobin 9.6 GM/DL (11.6-15.3) Hematocrit 27.9 % (35.0-46.0) Mean Corpuscular Volume 86.0 FL (80.0-100.0) Mean Corpuscular Hemoglobin 29.5 PG (27.0-34.0) Mean Corpuscular Hemoglobin Concent 34.3 % (32.0-36.0) Red Cell Distribution Width 14.5 % (11.6-17.2) Platelet Count 93 TH/MM3 (150-450) Mean Platelet Volume 8.8 FL (7.0-11.0) Neutrophils (%) (Auto) 94.1 % (16.0-70.0) Lymphocytes (%) (Auto) 2.7 % (9.0-44.0) Monocytes (%) (Auto) 2.9 % (0.0-8.0) Eosinophils (%) (Auto) 0.1 % (0.0-4.0) Basophils (%) (Auto) 0.2 % (0.0-2.0) Neutrophils # (Auto) 7.7 TH/MM3 (1.8-7.7) Lymphocytes # (Auto) 0.2 TH/MM3 (1.0-4.8) Monocytes # (Auto) 0.2 TH/MM3 (0-0.9) Eosinophils # (Auto) 0.0 TH/MM3 (0-0.4) Basophils # (Auto) 0.0 TH/MM3 (0-0.2) CBC Comment AUTO DIFF Differential Comment AUTO DIFF CONFIRMED Platelet Estimate LOW (NORMAL) Platelet Morphology Comment NORMAL (NORMAL) Ovalocytes 1+ (NORMAL) Blood Urea Nitrogen 19 MG/DL (7-18) Creatinine 0.58 MG/DL (0.50-1.00) Random Glucose 118 MG/DL (74-106) Calcium Level 8.2 MG/DL (8.5-10.1) Sodium Level 131 MEQ/L (136-145) Potassium Level 3.4 MEQ/L (3.5-5.1) Chloride Level 89 MEQ/L (98-107) Carbon Dioxide Level 33.7 MEQ/L (21.0-32.0) Anion Gap 8 MEQ/L (5-15) Estimat Glomerular Filtration Rate 101 ML/MIN (>89) Result Diagram: 07/16/17 0415 07/16/17 0415 Microbiology Microbiology Date/Time Source Procedure Growth Status 07/15/17 18:58 Blood Peripheral Aerobic Blood Culture Pending Received 07/15/17 18:58 Blood Peripheral Anaerobic Blood Culture Pending Received 07/15/17 18:50 Blood Peripheral Aerobic Blood Culture Pending Received 07/15/17 18:50 Blood Peripheral Anaerobic Blood Culture Pending Received 07/16/17 05:55 Sputum Endotracheal Gram Stain Pending Received 07/16/17 05:55 Sputum Endotracheal Sputum Culture Pending Received Imaging Last Impressions Chest X-Ray 07/15/17 1826 Signed Impressions: Service Date/Time: Saturday, July 15, 2017 18:31 - CONCLUSION: 1. Basilar air space disease with small pleural effusions. Endotracheal tube in good position. Mild cardiomegaly. Estrada Willis MD Head CT 07/15/17 0000 Signed Impressions: Service Date/Time: Sunday, July 16, 2017 01:34 - CONCLUSION: No acute intracranial disease. Emmanuel Mcconnell MD Patient/Family Conference Present at Family Conference: Alvino Bae on telephone. Family Conference Time (mins): 40 Family Conference Location: Telephone Issues Discussed: * Palliative care role, purpose, approach * Additional medical, psychosocial, and spiritual history * Patients general health, functional status, and cognitive changes in the months leading up to the current hospitalization * Patient/family understanding of the current medical problems * Patient/family understanding of prognosis * Patients goals of care as best understood from advance directives and/or conversations and/or values * Current medical treatment options and benefits/burdens of those options * Likely scenarios comparing ongoing aggressive care with a transition to comfort measures only * Questions answered to the best of my ability * Palliative care contact information provided Assessment and Plan Disease Oriented Problem List: (1) COPD with acute exacerbation (2) Lung nodule (3) Tobacco abuse (4) Mitral stenosis (5) Physical deconditioning Symptom Scale: (1) Anxiety 0-10 Scale: Unable to quantify (2) Dyspnea 0-10 Scale: Unable to quantify Pertinent Non-Medical Issues Psychosocial: x 2. . Pt's last past away 8 years ago. Has 4 children: Alvino Cortes and Ruddy cortes is from a previous marriage. They live in [place] and per reachable son, they have been estranged. There is no contact information available. Armond Bae (local and only reachable son). Spiritual: Legal: Currently we have on Alvino Bae who is reachable. He endorse he thinks there is some sort of advance directive completed last hospitalization, and that her mom verbalize she does not want to be intubated. Palliative will look through paper records to see if any advance directive were completed. If it we are unable to find it. Per [place] Statutes, it is pt's 4 children are proxy: Alvino Bae (only Alvino has been reachable). We will need to try to find the other children and possibly do an accurints. Ethical issues impacting care: Important Contacts Alvino Bae Son: [phone] Prognosis Has severe COPD, prognosis is guarded. Overall should patient survive current hospitalization will likely be at risk for further infections, dyspnea, respiratory distress. Code Status: Alternative Code Plan == code- Intubation only. == capacity- currently does not have capacity to make medical decisions. == Health Care decision maker- Pending. Currently we have on Alvino Bae who is the only reachable child of the patiluis angel, who has been serving as proxy decision maker. Alvino Bae endorse he thinks there is some sort of advance directive completed last hospitalization, and that her mom verbalize she does not want to be intubated. Palliative will look through paper records to see if any advance directive were completed. If we are unable to find it. Per [place] Statutes, it is pt's 4 children who are proxy: Alvino Cortes (estranged) Ruddy Cortes (estranged) Armond Bae (only Alvino has been reachable). If we are unable to find it, we will need to try to find the other children and possibly do an accurints report if we are not able to locate any advance directive. == goals of care: pending on results of who health care decision maker is. Currently only reachable child is Alvino Bae. == Symptoms anxiety- on diprivan drip currently. dyspnea- intubated. no new med rec. == Palliative care will follow up to make recommendation for symptom management , and follow up on goals of care. Thank you for the opportunity to participate in the care of Ms. Bae. Attestation To help prompt me to consider important information that might be impacting today's encounter and assessment, information from prior notes written by myself or my colleagues may have been "brought forward" into today's note. My signature on this note, however, is an attestation that I personally performed the exam, history, and/or decision-making noted today, and, unless otherwise indicated, the interactions with patient, family, and staff as well as the review of records all occurred today. I also attest that the listed assessment and stated plan reflect my best clinical judgment today based on the combination of historical information, prior notes, and today's exam/ interactions. When time spent is documented, it refers only to time spent today by the signer, or if indicated, combined time spent today by collaborating physician/nurse practitioner. Jose Francisco New MD Jul 16, 2017 10:27
[2017-07-16] MEDS ORDERED: hydrALAZINE HCL 20 MG/ML VIAL IV ONE (13:00)
--- NOTE | 2017-07-16 13:55 | HHI.CCPN ---
Subjective Remarks/Hospital Course 77 yo WF with PMH of COPD on 2 L home O2, hypertension. She was recently admitted to [facility] 06/25/17- 07/03/17 due to acute COPD exacerbation with acute on chronic hypercapnic respiratory failure that was triggered by influenza A. She was discharged to SNF. Reportedly she was doing reasonably well and participating in rehab. She had an episode of respiratory distress around 1 AM on 07/15 and another episode later in the evening which prompted staff to call E VAC. When E VAC arrived she was intubated at the scene due to apnea. She received 1 L normal saline bolus, vancomycin, Zosyn, DuoNeb 3 in the emergency department. Critical care medicine is consulted for admission. She is afebrile with no leukocytosis. CXR with bibasilar opacities. She has chronic CO2 retention SUBJ 07/16: Remains intubated on minimal sedation. Wakes up easily follows commands. Will initiate CPAP attempt wean to extubate. Objective Vital Signs Date Time Temp Pulse Resp B/P (MAP) Pulse Ox O2 Delivery O2 Flow Rate FiO2 07/16/17 12:00 30 07/16/17 12:00 98.0 52 18 180/78 (112) 100 07/16/17 00:29 Auto-Vent Intake and Output 07/16/17 07/16/17 07/17/17 08:00 16:00 00:00 Intake Total 400 ml 300 ml Output Total 350 ml Balance 50 ml 300 ml Result Diagram: 07/16/17 0415 07/16/17 0415 Other Results Laboratory Tests Test 07/15/17 20:51 Blood Gas Puncture Site LT RADIAL Blood Gas Patient Temperature 98.6 Blood Gas HCO3 34 mmol/L (22-26) Blood Gas Base Excess 9.6 mmol/L (-2-2) Blood Gas Oxygen Saturation 99 % (90-100) Arterial Blood pH 7.42 (7.380-7.420) Arterial Blood Partial Pressure CO2 54 mmHg (38-42) Arterial Blood Partial Pressure O2 469 mmHG (61-120) Arterial Blood Oxygen Content 13.2 Vol % (12.0-20.0) Arterial Blood Carboxyhemoglobin 0.9 % (0-4) Arterial Blood Methemoglobin 0.6 % (0-2) Blood Gas Hemoglobin 8.6 G/DL (12.0-16.0) Oxygen Delivery Device VENTILATOR Blood Gas Ventilator Setting AC 18/500/5PEEP Blood Gas Inspired Oxygen 100 % Objective Remarks GENERAL: Elderly female who is orotracheally intubated and but wakes up easily follows commands SKIN: Warm and dry. HEAD: Atraumatic. Normocephalic. EYES: Pupils equal and round, 2 mm and reactive bilaterally. No scleral icterus. No injection or drainage. ENT: No nasal bleeding or discharge. Orotracheally intubated NECK: Trachea midline. No JVD. CARDIOVASCULAR: Regular rate and rhythm. 06/25 systolic murmur left apex, and left sternal border RESPIRATORY: Mild bilateral expiratory wheezing no crackles GASTROINTESTINAL: Abdomen soft, non-tender, nondistended. Bowel sounds present. MUSCULOSKELETAL: Extremities without clubbing, cyanosis, or edema. NEUROLOGICAL: Alert awake on the vent. Follows commands 4 Urinary Catheter: Yes Assessment to: Continue A/P Assessment and Plan NEURO: Acute toxic metabolic encephalopathy likely related to CO2 retention Anxiety Propofol for sedation. Hold sedation for weaning trial CT brain no acute abnormality RESP: Acute on chronic hypercapnic respiratory failure COPD on chronic 2 L O2 12 mm TONNY spiculated mass suspicious for malignancy (On CT 06/25/17) Patient has advanced COPD. She has chronic CO2 retention with baseline CO2 high 60/low 70s. CT scan from 2013 with emphysema and fibrotic scarring 2 nebs every 4 hours. Albuterol every 2 hours as needed. Solu-Medrol 60 g IV every 6 hours. Chest x-ray with bibasilar opacities. Effusion on the right which was present previously on CT chest 06/25/17 Antibiotics as per below Start weaning trial with possible extubation, use BiPAP as needed after extubation Has been seen by Dr. Coates in the past, lung mass not worked up. CV: Hypertension Mitral stenosis Mild aortic stenosis Monitor hemodynamic Followed by Dr. Janell Sharma for mitral valvular disease. Mild/moderate MR on Echo 02/25/14, moderate stenosis, mild per Echo report 06/25/17. Hold diltiazem CD 120, use cardizem 30 q6 via OG. Hold losartan/HCTZ for now as this may cause hyponatremia. GI: OG tube to low intermittent suction. Start tube feeds if not extubated FEN/RENAL: Hyponatremia Patient was treated for hyponatremia with sodium of 116 on 07/11. Sodium was 118 on 07/12 and then 130 on 07/15 so trend of correction appears appropriate. Has been on sodium 1 gram po tid, will continue. Tee in place. Monitor intake and output. Monitor electrolytes and replace as indicated. ID: h/o Influenza 06/25/17. CXR with bibasilar opacities. Has been treated empirically for HCAP with Zosyn and vancomycin and will continue pending cultures. F/U sputum culture. Follow-up blood cultures. HEME: Monitor CBC ENDO: Euglycemic PROPH: SCDs for DVT prophylaxis. Lovenox 40 mg subcutaneous daily for DVT prophylaxis. Famotidine for stres ulcer prophylaxis. ACCESS: Peripheral IV providing adequate access at this time Patient's son Alvino is adamant that when she was at [facility] she stated that she was okay with being on oxygen mask but never wanted to be on the ventilator, even if "life or ". He states that he knows she definitely would not want predatory animal exterminator mechanical ventilation. Discussed that she may improve to where she could be extubated. If she is extubated she would be at high risk for recurrent respiratory failure in the next days to months. However, she may be able to participate in medical decision-making. There is documentation from the SNF where patient had said she was FULL CODE but did not want to remain on a ventilator for vegetative state. Patient currently lacks capacity for medical decision-making and her son states that she would not want CPR for pulseless arrest. She is designated alternate code, intubation only. ( is . She has another son Juan Manuel and an additional son who is reportedly not capacitated for medical decision making). Alvino believes that she filled out healthcare surrogate paperwork at [facility], however I cannot find this documentation. Will consult palliative care for assistance with ensuring patient's wishes are honored. Alvino agrees with continuing mechanical ventilation at this time with efforts at liberation from mechancal ventilation but says "I need to honor my mom's wishes if she is not showing signs of improvement". ALT CODE INTUBATION ONLY. Treatment for Acute COPD exacerbation with efforts toward extubation, possibility extubate to Bipap. Palliative care consulted. Level II Yokasta Guido MD Jul 16, 2017 13:55
--- NOTE | 2017-07-16 15:45 | EKG ---
Date Performed: 07/15/2017 Time Performed: 18:26:03 PTAGE: 77 years EKG: Sinus rhythm POSSIBLE RIGHT ATRIAL ENLARGEMENT POSSIBLE LEFT ATRIAL ENLARGEMENT LEFT VENTRICULAR HYPERTROPHY AND ST-T CHANGE ABNORMAL ECG INTERPRETATION BASED ON A DEFAULT AGE OF 40 YEARS Since the previous tracing , no significant change noted NO PREVIOUS TRACING DOCTOR: Mainor De Jesus Interpretating Date/Time 07/16/2017 15:41:28
[2017-07-17] VITALS (16 sets, daily range): BP systolic 91–163; BP diastolic 45–88; PULSE 67–102; RESP 12–24; TEMP 97.2–98; O2SAT 94–100
[2017-07-17] MEDS: DILTIAZEM HCL 30 MG TAB PO SCH ×4 (00:19→17:50)
[2017-07-17] MEDS: PIPERACIL-TAZO 4.5 GM PREMIX 100 ML IV SCH ×4 (00:19→17:50)
[2017-07-17] MEDS: methylPREDNISolone SOD SUCC 125 MG/2 ML VIAL IV PUSH SCH ×4 (00:19→17:00)
[2017-07-17] MEDS: ONDANSETRON HCL 4 MG/2 ML VIAL IV PUSH PRN ×2 (00:28→21:07)
[2017-07-17] MEDS: CHLORHEXIDINE GLUCONATE 2 % 1 PACK (2 CLOTHS) TOP SCH (04:00)
[2017-07-17] MEDS: ENOXAPARIN SODIUM 40 MG/0.4 ML SYRINGE SQ SCH (05:24)
[2017-07-17] MEDS: DOCUSATE SODIUM 50 MG/SENNA 8.6 MG TAB PO SCH ×2 (09:00→21:07)
[2017-07-17] MEDS: FAMOTIDINE 20 MG/2 ML VIAL IV PUSH SCH (09:00)
[2017-07-17] MEDS: SODIUM CHLORIDE 1 GRAM TAB PO SCH ×3 (09:00→17:50)
--- NOTE | 2017-07-17 11:36 | HHI.HCPN ---
Reason for visit a. To assist with evaluation and management of symptoms including: Dyspnea b. To assist medical decision maker(s) with: better understanding of current medical conditions; weighing benefits/burdens of medical treatment options; making medical treatment decisions. Subjective/Interval History Patient extubated, alert oriented. Following commands. Updated patient course of hospitalization. Family/friend interactions We had a family meeting with pt's son and Health Care Surrogate Alvino Bae , pt's brother and sister in law. I talked extensively of pt's severe copd, her risk of rehospitalization, and that I worry the same situation may happen again. I told her I worry that her lung disease is only going to get worse Readdress code status with patient, as she told me earlier this morning, that she "does not want to , but does not want prolong ventilation." She states if she does require reintubation she would want that again. She does not want tracheostomy at this point. Her son accepts that. If it gets to the point she needs tracheostomy, she would want transition to comfort measures. At this point patient is not ready for just comfort measures only. She does not want CPR/ compression/ or acls. Family ask if after discharge, she can be on continuous O2. Advance Directives Health Care Surrogate: Copy in medical record Objective Vital Signs Date Time Temp Pulse Resp B/P (MAP) Pulse Ox O2 Delivery O2 Flow Rate FiO2 07/17/17 10:00 85 07/17/17 08:22 100 Nasal Cannula 2.00 07/17/17 08:00 97.6 85 20 122/56 (78) 100 07/17/17 08:00 85 07/17/17 07:52 97.6 72 20 158/88 (111) 100 07/17/17 06:00 79 07/17/17 04:00 69 07/17/17 04:00 97.6 69 12 100/45 (63) 100 07/17/17 02:00 67 07/17/17 00:00 97.8 78 24 91/45 (60) 100 07/17/17 00:00 78 07/16/17 22:00 83 07/16/17 20:00 100 07/16/17 20:00 98.1 100 23 123/62 (82) 100 07/16/17 18:00 107 3/27/18 16:00 110 07/16/17 16:00 97.9 113 25 119/61 (80) 98 07/16/17 15:26 97 Nasal Cannula 3.00 07/16/17 15:20 97 Nasal Cannula 3 07/16/17 14:15 96 30 07/16/17 14:14 30 07/16/17 14:00 106 07/16/17 12:00 30 07/16/17 12:00 98.0 52 18 180/78 (112) 100 07/16/17 12:00 55 Intake & Output 07/17/17 07/17/17 07:00 19:00 Intake Total 100 ml Output Total 250 ml Balance -150 ml Intake IV Total 100 ml Output Urine Total 250 ml Stool Total 0 ml # Bowel Movements 0 Physical Exam CONSTITUTIONAL/GENERAL: Alert oriented, but frail lady on nasal canula. SKIN: No jaundice, rashes, or lesions. Ecchymoses on upper extremities. No wounds seen anteriorly. Skin temperature appropriate. Not diaphoretic. HEAD: Atraumatic. Normocephalic. EYES: No icteric sclerus., EOM intact bilaterally. ENT: Hearing grossly normal. Nose without bleeding or purulent drainage. Throatcleary NECK: Trachea midline. Supple, nontender. No palpable thyroid enlargement or nodularity. CARDIOVASCULAR: RR. systolic murmur. RESPIRATORY/CHEST: Symmetric, unlabored respirations. Decreased breath sound bilaterally. GASTROINTESTINAL: Abdomen soft, non-tender, nondistended. No hepato-splenomegaly , or palpable masses. No guarding. Bowel sounds present. GENITOURINARY: Without palpable bladder distension. Tee catheter in place. MUSCULOSKELETAL: Extremities without clubbing, cyanosis, or edema. NEUROLOGICAL: move all 4 extremities. PSYCHIATRIC:calm Diagnostic Tests Laboratory Laboratory Tests Test 07/15/17 18:30 07/15/17 18:58 07/15/17 20:51 07/16/17 02:00 White Blood Count 8.4 TH/MM3 (4.0-11.0) Red Blood Count 3.26 MIL/MM3 (4.00-5.30) Hemoglobin 9.8 GM/DL (11.6-15.3) Hematocrit 28.6 % (35.0-46.0) Mean Corpuscular Volume 87.7 FL (80.0-100.0) Mean Corpuscular Hemoglobin 29.9 PG (27.0-34.0) Mean Corpuscular Hemoglobin Concent 34.1 % (32.0-36.0) Red Cell Distribution Width 14.4 % (11.6-17.2) Platelet Count 114 TH/MM3 (150-450) Mean Platelet Volume 8.6 FL (7.0-11.0) Neutrophils (%) (Auto) 86.5 % (16.0-70.0) Lymphocytes (%) (Auto) 6.4 % (9.0-44.0) Monocytes (%) (Auto) 6.1 % (0.0-8.0) Eosinophils (%) (Auto) 0.4 % (0.0-4.0) Basophils (%) (Auto) 0.6 % (0.0-2.0) Neutrophils # (Auto) 7.3 TH/MM3 (1.8-7.7) Lymphocytes # (Auto) 0.5 TH/MM3 (1.0-4.8) Monocytes # (Auto) 0.5 TH/MM3 (0-0.9) Eosinophils # (Auto) 0.0 TH/MM3 (0-0.4) Basophils # (Auto) 0.0 TH/MM3 (0-0.2) CBC Comment DIFF FINAL Differential Comment Prothrombin Time 9.6 SEC (9.8-11.6) Prothromb Time International Ratio 0.9 RATIO Activated Partial Thromboplast Time 23.3 SEC (24.3-30.1) Blood Urea Nitrogen 22 MG/DL (7-18) Creatinine 0.62 MG/DL (0.50-1.00) Random Glucose 123 MG/DL (74-106) Total Protein 6.0 GM/DL (6.4-8.2) Albumin 3.0 GM/DL (3.4-5.0) Calcium Level 8.2 MG/DL (8.5-10.1) Alkaline Phosphatase 54 U/L (45-117) Aspartate Amino Transf (AST/SGOT) 25 U/L (15-37) Alanine Aminotransferase (ALT/SGPT) 36 U/L (10-53) Total Bilirubin 0.4 MG/DL (0.2-1.0) Sodium Level 131 MEQ/L (136-145) Potassium Level 4.5 MEQ/L (3.5-5.1) Chloride Level 89 MEQ/L (98-107) Carbon Dioxide Level 38.2 MEQ/L (21.0-32.0) Anion Gap 4 MEQ/L (5-15) Estimat Glomerular Filtration Rate 93 ML/MIN (>89) Troponin I 0.03 NG/ML (0.02-0.05) Urine Color YELLOW (YELLW/STRAW) Urine Turbidity HAZY (CLEAR) Urine pH 5.0 (5.0-8.5) Urine Specific [place] 1.018 (1.002-1.035) Urine Protein TRACE mg/dL (NEG-TRACE) Urine Glucose (UA) NEG mg/dL (NEG) Urine Ketones NEG mg/dL (NEG) Urine Occult Blood TRACE (NEG) Urine Nitrite NEG (NEG) Urine Bilirubin NEG (NEG) Urine Urobilinogen LESS THAN 2.0 MG/DL (LESS Urine Leukocyte Esterase NEG (NEG) Urine RBC 3 /hpf (0-3) Urine Uric Acid Crystals MANY /hpf (NONE) Urine Amorphous Sediment RARE Urine Mucus FEW /lpf (OCC) Microscopic Urinalysis Comment CATH-CULT NOT IND Lactic Acid Level 1.4 mmol/L (0.4-2.0) Blood Gas Puncture Site LT RADIAL Blood Gas Patient Temperature 98.6 Blood Gas HCO3 34 mmol/L (22-26) Blood Gas Base Excess 9.6 mmol/L (-2-2) Blood Gas Oxygen Saturation 99 % (90-100) Arterial Blood pH 7.42 (7.380-7.420) Arterial Blood Partial Pressure CO2 54 mmHg (38-42) Arterial Blood Partial Pressure O2 469 mmHG (61-120) Arterial Blood Oxygen Content 13.2 Vol % (12.0-20.0) Arterial Blood Carboxyhemoglobin 0.9 % (0-4) Arterial Blood Methemoglobin 0.6 % (0-2) Blood Gas Hemoglobin 8.6 G/DL (12.0-16.0) Oxygen Delivery Device VENTILATOR Blood Gas Ventilator Setting AC 18/500/5PEEP Blood Gas Inspired Oxygen 100 % Nasal Screen MRSA (PCR) MRSA NOT DETECTED (NOT Test 07/16/17 04:15 07/16/17 18:04 White Blood Count 8.2 TH/MM3 (4.0-11.0) Red Blood Count 3.24 MIL/MM3 (4.00-5.30) Hemoglobin 9.6 GM/DL (11.6-15.3) Hematocrit 27.9 % (35.0-46.0) Mean Corpuscular Volume 86.0 FL (80.0-100.0) Mean Corpuscular Hemoglobin 29.5 PG (27.0-34.0) Mean Corpuscular Hemoglobin Concent 34.3 % (32.0-36.0) Red Cell Distribution Width 14.5 % (11.6-17.2) Platelet Count 93 TH/MM3 (150-450) Mean Platelet Volume 8.8 FL (7.0-11.0) Neutrophils (%) (Auto) 94.1 % (16.0-70.0) Lymphocytes (%) (Auto) 2.7 % (9.0-44.0) Monocytes (%) (Auto) 2.9 % (0.0-8.0) Eosinophils (%) (Auto) 0.1 % (0.0-4.0) Basophils (%) (Auto) 0.2 % (0.0-2.0) Neutrophils # (Auto) 7.7 TH/MM3 (1.8-7.7) Lymphocytes # (Auto) 0.2 TH/MM3 (1.0-4.8) Monocytes # (Auto) 0.2 TH/MM3 (0-0.9) Eosinophils # (Auto) 0.0 TH/MM3 (0-0.4) Basophils # (Auto) 0.0 TH/MM3 (0-0.2) CBC Comment AUTO DIFF Differential Comment AUTO DIFF CONFIRMED Platelet Estimate LOW (NORMAL) Platelet Morphology Comment NORMAL (NORMAL) Ovalocytes 1+ (NORMAL) Blood Urea Nitrogen 19 MG/DL (7-18) Creatinine 0.58 MG/DL (0.50-1.00) Random Glucose 118 MG/DL (74-106) Calcium Level 8.2 MG/DL (8.5-10.1) Sodium Level 131 MEQ/L (136-145) Potassium Level 3.4 MEQ/L (3.5-5.1) 3.8 MEQ/L (3.5-5.1) Chloride Level 89 MEQ/L (98-107) Carbon Dioxide Level 33.7 MEQ/L (21.0-32.0) Anion Gap 8 MEQ/L (5-15) Estimat Glomerular Filtration Rate 101 ML/MIN (>89) Result Diagram: 07/16/17 0415 07/16/17 1804 Microbiology Microbiology Date/Time Source Procedure Growth Status 07/15/17 18:58 Blood Peripheral Aerobic Blood Culture - Preliminary NO GROWTH IN 2 DAYS Resulted 07/15/17 18:58 Blood Peripheral Anaerobic Blood Culture - Preliminary NO GROWTH IN 2 DAYS Resulted 07/15/17 18:50 Blood Peripheral Aerobic Blood Culture - Preliminary NO GROWTH IN 2 DAYS Resulted 07/15/17 18:50 Blood Peripheral Anaerobic Blood Culture - Preliminary NO GROWTH IN 2 DAYS Resulted 07/16/17 05:55 Sputum Endotracheal Gram Stain - Final Resulted 07/16/17 05:55 Sputum Endotracheal Sputum Culture Pending Resulted Imaging Last Impressions Chest X-Ray 07/15/17 1826 Signed Impressions: Service Date/Time: Saturday, July 15, 2017 18:31 - CONCLUSION: 1. Basilar air space disease with small pleural effusions. Endotracheal tube in good position. Mild cardiomegaly. Estrada Willis MD Head CT 07/15/17 0000 Signed Impressions: Service Date/Time: Sunday, July 16, 2017 01:34 - CONCLUSION: No acute intracranial disease. Emmanuel Mcconnell MD Assessment and Plan Disease Oriented Problem List: (1) COPD with acute exacerbation (2) Lung nodule (3) Tobacco abuse (4) Mitral stenosis (5) Physical deconditioning Symptom Scale: (1) Anxiety 0-10 Scale: 0 (2) Dyspnea 0-10 Scale: 5 Pertinent Non-Medical Issues Psychosocial: x 2. . Pt's last past away 8 years ago. Has 4 children: Alvino Cortes and Ruddy cortes is from a previous marriage. They live in [place] and per reachable son, they have been estranged. There is no contact information available. Armond Baeyuliet Bae is now the health care surrogate Spiritual:[employer] Legal: Alvino Bae is the health care surrogate. Ethical issues impacting care: none Important Contacts Alvino Bae Son: [phone] Prognosis Has severe COPD, prognosis is guarded. Overall should patient survive current hospitalization will likely be at risk for further infections, dyspnea, respiratory distress. Code Status: Alternative Code Plan == code- Intubation only. == capacity- appears to have capacity to make medical decisions == Health Care decision: completed health care surrogate form. Alvino Bae is the primary surrogate. == goals of care:family meeting between 1 to 2 pm completed. Pt changed her mind on intubation. She states if she does require reintubation she would want that again. She does not want tracheostomy at this point. Her son accepts that. If it gets to the point she needs tracheostomy, she would want transition to comfort measures. At this point patient is not ready for just comfort measures only. She does not want CPR/ compression/ or acls. Family ask if after discharge, she can be on continuous O2. == Symptoms anxiety- prn available dyspnea- not dyspneic at this point, == Palliative care will follow up to make recommendation for symptom management , and follow up on goals of care. Attestation To help prompt me to consider important information that might be impacting today's encounter and assessment, information from prior notes written by myself or my colleagues may have been "brought forward" into today's note. My signature on this note, however, is an attestation that I personally performed the exam, history, and/or decision-making noted today, and, unless otherwise indicated, the interactions with patient, family, and staff as well as the review of records all occurred today. I also attest that the listed assessment and stated plan reflect my best clinical judgment today based on the combination of historical information, prior notes, and today's exam/ interactions. When time spent is documented, it refers only to time spent today by the signer, or if indicated, combined time spent today by collaborating physician/nurse practitioner. Jose Francisco New MD Jul 17, 2017 11:36
--- NOTE | 2017-07-17 15:37 | HHI.CCPN ---
Subjective Remarks/Hospital Course 77 yo WF with PMH of COPD on 2 L home O2, hypertension. She was recently admitted to [facility] 06/25/17- 07/03/17 due to acute COPD exacerbation with acute on chronic hypercapnic respiratory failure that was triggered by influenza A. She was discharged to SNF. Reportedly she was doing reasonably well and participating in rehab. She had an episode of respiratory distress around 1 AM on 07/15 and another episode later in the evening which prompted staff to call E VAC. When E VAC arrived she was intubated at the scene due to apnea. She received 1 L normal saline bolus, vancomycin, Zosyn, DuoNeb 3 in the emergency department. Critical care medicine is consulted for admission. She is afebrile with no leukocytosis. CXR with bibasilar opacities. She has chronic CO2 retention SUBJ 07/16: Remains intubated on minimal sedation. Wakes up easily follows commands. Will initiate CPAP attempt wean to extubate. 07/17: Extubated yesterday tolerating well good saturation on nasal cannula. Objective Vital Signs Date Time Temp Pulse Resp B/P (MAP) Pulse Ox O2 Delivery O2 Flow Rate FiO2 07/17/17 14:47 94 50 07/17/17 14:00 85 07/17/17 12:00 98.0 20 141/65 (90) 07/17/17 08:22 Nasal Cannula 2.00 Intake and Output 07/17/17 07/17/17 07/18/17 08:00 16:00 00:00 Output Total 250 ml Balance -250 ml Result Diagram: 07/16/17 0415 07/16/17 1804 Objective Remarks GENERAL: Elderly female who is on NC SKIN: Warm and dry. HEAD: Atraumatic. Normocephalic. EYES: Pupils equal and round, 2 mm and reactive bilaterally. No scleral icterus. No injection or drainage. ENT: No nasal bleeding or discharge. NECK: Trachea midline. No JVD. CARDIOVASCULAR: Regular rate and rhythm. 06/25 systolic murmur left apex, and left sternal border RESPIRATORY: Mild bilateral expiratory wheezing no crackles GASTROINTESTINAL: Abdomen soft, non-tender, nondistended. Bowel sounds present. MUSCULOSKELETAL: Extremities without clubbing, cyanosis, or edema. NEUROLOGICAL: Alert awake. Follows commands 4 A/P Assessment and Plan NEURO: Acute toxic metabolic encephalopathy likely related to CO2 retention Anxiety Minimize sedation CT brain no acute abnormality RESP: Acute on chronic hypercapnic respiratory failure COPD on chronic 2 L O2 12 mm TONNY spiculated mass suspicious for malignancy (On CT 06/25/17) Patient has advanced COPD. CT scan from 2013 with emphysema and fibrotic scarring 2 nebs every 4 hours. Albuterol every 2 hours as needed. Solu-Medrol 60 g IV every 6 hours. -reduce to 40 q8 Chest x-ray with bibasilar opacities. Effusion on the right which was present previously on CT chest 06/25/17 Antibiotics as per below Use BiPAP as needed after extubation Has been seen by Dr. Coates in the past, lung mass not worked up. Pulmonology consulted CV: Hypertension Mitral stenosis Mild aortic stenosis Monitor hemodynamic Followed by Dr. Janell Sharma for mitral valvular disease. Mild/moderate MR on Echo 02/25/14, moderate stenosis, mild per Echo report 06/25/17. Hold diltiazem CD 120, use Cardizem 30 q6 via OG. Hold losartan/HCTZ for now as this may cause hyponatremia. GI: -Bedside swallow heart healthy diet FEN/RENAL: Hyponatremia Patient was treated for hyponatremia with sodium of 116 on 07/11. Sodium was 118 on 07/12 and then 130 on 07/15 So trend of correction appears appropriate. Has been on sodium 1 gram po tid, will continue. Tee in place. Monitor intake and output. Monitor electrolytes and replace as indicated. ID: h/o Influenza 06/25/17. CXR with bibasilar opacities. Has been treated empirically for HCAP with Zosyn and vancomycin -DC Vanc F/U sputum culture. Follow-up blood cultures. HEME: Monitor CBC ENDO: Euglycemic PROPH: SCDs for DVT prophylaxis. Lovenox 40 mg subcutaneous daily for DVT prophylaxis. Famotidine for stres ulcer prophylaxis. ACCESS: Peripheral IV providing adequate access at this time Patient's son Avlino is adamant that when she was at [facility] she stated that she was okay with being on oxygen mask but never wanted to be on the ventilator, even if "life or ". He states that he knows she definitely would not want shelter mechanical ventilation. Discussed that she may improve to where she could be extubated. If she is extubated she would be at high risk for recurrent respiratory failure in the next days to months. However, she may be able to participate in medical decision-making. There is documentation from the SNF where patient had said she was FULL CODE but did not want to remain on a ventilator for vegetative state. Patient currently lacks capacity for medical decision-making and her son states that she would not want CPR for pulseless arrest. She is designated alternate code, intubation only. ( is . She has another son Juan Manuel and an additional son who is reportedly not capacitated for medical decision making). Alvino believes that she filled out healthcare surrogate paperwork at [facility], however I cannot find this documentation. Will consult palliative care for assistance with ensuring patient's wishes are honored. Alvino agrees with continuing mechanical ventilation at this time with efforts at liberation from mechancal ventilation but says "I need to honor my mom's wishes if she is not showing signs of improvement". ALT CODE INTUBATION ONLY. Treatment for Acute COPD exacerbation with efforts toward extubation, possibility extubate to Bipap. Palliative care consulted. Level II Transfer to [facility] with Tele, consult [facility] to assume care in Yokasta Guido MD Jul 17, 2017 15:37
[2017-07-17] MEDS: SODIUM CHLORIDE 0.9% FLUSH 10 ML FLUSH IV FLUSH SCH ×2 (21:00→21:09)
[2017-07-17] MEDS: FAMOTIDINE 20 MG TAB PO SCH (21:07)
[2017-07-18] VITALS (10 sets, daily range): BP systolic 129–144; BP diastolic 52–72; PULSE 74–103; RESP 16–28; TEMP 96.3–98; O2SAT 89–100
[2017-07-18] MEDS ORDERED: ALPRAZolam 0.25 MG TAB PO PRN
[2017-07-18] MEDS: DILTIAZEM HCL 30 MG TAB PO SCH ×5 (00:03→23:40)
[2017-07-18] MEDS: PIPERACIL-TAZO 4.5 GM PREMIX 100 ML IV SCH ×5 (00:03→23:35)
[2017-07-18] MEDS: methylPREDNISolone SOD SUCC 125 MG/2 ML VIAL IV PUSH SCH ×5 (00:03→23:38)
[2017-07-18] MEDS: CHLORHEXIDINE GLUCONATE 2 % 1 PACK (2 CLOTHS) TOP SCH ×2 (04:00→23:41)
[2017-07-18] MEDS: ENOXAPARIN SODIUM 40 MG/0.4 ML SYRINGE SQ SCH (05:17)
[2017-07-18] MEDS: DOCUSATE SODIUM 50 MG/SENNA 8.6 MG TAB PO SCH ×2 (09:05→21:33)
[2017-07-18] MEDS: FAMOTIDINE 20 MG TAB PO SCH ×2 (09:06→21:35)
[2017-07-18] MEDS: SODIUM CHLORIDE 1 GRAM TAB PO SCH ×3 (09:06→17:13)
[2017-07-18] MEDS: SODIUM CHLORIDE 0.9% FLUSH 10 ML FLUSH IV FLUSH SCH ×2 (09:06→21:00)
--- NOTE | 2017-07-18 09:40 | MB ---
cc: Nixon Sorto MD DATE: 07/17/2017 REQUESTING PHYSICIAN: Dr. Yokasta Guido. REASON FOR CONSULTATION: Respiratory failure. HISTORY OF PRESENT ILLNESS: Ms. Bae is a 77-year-old female with longstanding history of COPD. She is oxygen dependent. The patient was recently admitted at [facility] with respiratory failure. [facility] went to the [facility]. She was doing okay while there, but then she became more short of breath and disoriented. EMS was called. She was found to be apneic and intubated. Now, she has been extubated. She is on nasal cannula, feels much better. Her son is on the bedside. PAST MEDICAL HISTORY: Significant for COPD. She is oxygen dependent, history of heart valve surgery, pneumonia. MEDICATIONS: She is currently taking famotidine 20 mg, potassium supplement, Zosyn IV, Lovenox 40 mg a day, diltiazem 30 mg every 6 hours, Solu-Medrol 60 mg every 6 hours, albuterol/Atrovent nebulizer treatment. ALLERGIES: NO KNOWN DRUG ALLERGIES. SOCIAL HISTORY: She is a , lives alone. She has a long history of smoking until she entered the hospital. No alcohol abuse. FAMILY HISTORY: She has five children. REVIEW OF SYSTEMS: She walks only short distance. No DVT, pulmonary embolism. No seizures, stroke or epilepsy. PHYSICAL EXAMINATION: GENERAL: Thin built, frail elderly female, mild short of breath. VITAL SIGNS: Blood pressure 146/66, heart rate 84, respiration 18, temperature 95. HEENT: Unremarkable. NECK: Supple. JVD not raised. CHEST: Equal air entry bilaterally, no rhonchi. She has decreased chest expansion. CARDIOVASCULAR: S1, S2 normal. ABDOMEN: Benign. EXTREMITIES: No edema. CENTRAL NERVOUS SYSTEM: Alert, oriented x 3, no focal deficit. LABORATORY DATA: WBC count is 8.2, hemoglobin 9.6, hematocrit 27.9, MCV 86, platelet count 93. Sodium 131, potassium 3.4, chloride 89, CO2 33, BUN 19, creatinine 0.58. IMPRESSION: 1. Hypercapnic respiratory failure, status post extubation. 2. Severe chronic obstructive pulmonary disease. 3. Nicotine use. 4. Anxiety disorder. 5. Hypertension. PLAN: I discussed with the patient and her son. We will maintain her on oxygen to keep the sats between 88% and 92%. Continue antibiotic and subcutaneous Lovenox SQ. Further treatment will depend on the course in the hospital. Thank you Yokasta Guido for this consult. MD ARIANE Mcmahan/SACHA , 08:25 PM , 08:48 PM ISABELA
--- NOTE | 2017-07-18 11:54 | HHI.HCPN ---
Reason for visit a. To assist with evaluation and management of symptoms including: Dyspnea b. To assist medical decision maker(s) with: better understanding of current medical conditions; weighing benefits/burdens of medical treatment options; making medical treatment decisions. Subjective/Interval History Pt at the bedside, eating some of her breakfast. Ask her how she felt, she said she does not know. She denies dyspnea. Pt was able to take a bite of her cereal. Appears somewhat fatigued. On nasal canula. Advance Directives Health Care Surrogate: Copy in medical record Objective Vital Signs Date Time Temp Pulse Resp B/P (MAP) Pulse Ox O2 Delivery O2 Flow Rate FiO2 07/18/17 08:50 97 Nasal Cannula 3.00 07/18/17 08:00 97.1 74 20 144/65 (91) 97 07/18/17 06:31 100 50 07/18/17 04:23 96.7 82 19 129/60 (83) 100 07/18/17 02:30 97 50 07/17/17 23:15 97.5 102 16 146/64 (91) 96 07/17/17 21:58 97.2 101 17 155/69 (97) 94 07/17/17 20:00 97.7 86 19 163/74 (103) 96 07/17/17 20:00 86 07/17/17 18:00 85 07/17/17 16:00 98.0 73 18 143/66 (91) 100 07/17/17 16:00 85 07/17/17 14:47 94 50 07/17/17 14:00 85 07/17/17 12:00 85 07/17/17 12:00 98.0 94 20 141/65 (90) 100 Intake & Output 07/18/17 07/18/17 07:00 19:00 Intake Total 480 ml Output Total 300 ml Balance 180 ml Intake Oral 480 ml Output Urine Total 300 ml # Bowel Movements 0 Physical Exam CONSTITUTIONAL/GENERAL: Alert oriented, but frail lady on nasal canula. SKIN: No jaundice, rashes, or lesions. Ecchymoses on upper extremities. No wounds seen anteriorly. Skin temperature appropriate. Not diaphoretic. HEAD: Atraumatic. Normocephalic. EYES: No icteric sclerus., EOM intact bilaterally. ENT: Hearing grossly normal. Nose without bleeding or purulent drainage. Throatcleary NECK: Trachea midline. Supple, nontender. No palpable thyroid enlargement or nodularity. CARDIOVASCULAR: RR. systolic murmur. RESPIRATORY/CHEST: Symmetric, unlabored respirations. Decreased breath sound bilaterally. GASTROINTESTINAL: Abdomen soft, non-tender, nondistended. No hepato-splenomegaly , or palpable masses. No guarding. Bowel sounds present. GENITOURINARY: Without palpable bladder distension. Tee catheter in place. MUSCULOSKELETAL: Extremities without clubbing, cyanosis, or edema. NEUROLOGICAL: move all 4 extremities. PSYCHIATRIC:calm Diagnostic Tests Laboratory Laboratory Tests Test 07/15/17 18:30 07/15/17 18:58 07/15/17 20:51 07/16/17 02:00 White Blood Count 8.4 TH/MM3 (4.0-11.0) Red Blood Count 3.26 MIL/MM3 (4.00-5.30) Hemoglobin 9.8 GM/DL (11.6-15.3) Hematocrit 28.6 % (35.0-46.0) Mean Corpuscular Volume 87.7 FL (80.0-100.0) Mean Corpuscular Hemoglobin 29.9 PG (27.0-34.0) Mean Corpuscular Hemoglobin Concent 34.1 % (32.0-36.0) Red Cell Distribution Width 14.4 % (11.6-17.2) Platelet Count 114 TH/MM3 (150-450) Mean Platelet Volume 8.6 FL (7.0-11.0) Neutrophils (%) (Auto) 86.5 % (16.0-70.0) Lymphocytes (%) (Auto) 6.4 % (9.0-44.0) Monocytes (%) (Auto) 6.1 % (0.0-8.0) Eosinophils (%) (Auto) 0.4 % (0.0-4.0) Basophils (%) (Auto) 0.6 % (0.0-2.0) Neutrophils # (Auto) 7.3 TH/MM3 (1.8-7.7) Lymphocytes # (Auto) 0.5 TH/MM3 (1.0-4.8) Monocytes # (Auto) 0.5 TH/MM3 (0-0.9) Eosinophils # (Auto) 0.0 TH/MM3 (0-0.4) Basophils # (Auto) 0.0 TH/MM3 (0-0.2) CBC Comment DIFF FINAL Differential Comment Prothrombin Time 9.6 SEC (9.8-11.6) Prothromb Time International Ratio 0.9 RATIO Activated Partial Thromboplast Time 23.3 SEC (24.3-30.1) Blood Urea Nitrogen 22 MG/DL (7-18) Creatinine 0.62 MG/DL (0.50-1.00) Random Glucose 123 MG/DL (74-106) Total Protein 6.0 GM/DL (6.4-8.2) Albumin 3.0 GM/DL (3.4-5.0) Calcium Level 8.2 MG/DL (8.5-10.1) Alkaline Phosphatase 54 U/L (45-117) Aspartate Amino Transf (AST/SGOT) 25 U/L (15-37) Alanine Aminotransferase (ALT/SGPT) 36 U/L (10-53) Total Bilirubin 0.4 MG/DL (0.2-1.0) Sodium Level 131 MEQ/L (136-145) Potassium Level 4.5 MEQ/L (3.5-5.1) Chloride Level 89 MEQ/L (98-107) Carbon Dioxide Level 38.2 MEQ/L (21.0-32.0) Anion Gap 4 MEQ/L (5-15) Estimat Glomerular Filtration Rate 93 ML/MIN (>89) Troponin I 0.03 NG/ML (0.02-0.05) Urine Color YELLOW (YELLW/STRAW) Urine Turbidity HAZY (CLEAR) Urine pH 5.0 (5.0-8.5) Urine Specific Sundance 1.018 (1.002-1.035) Urine Protein TRACE mg/dL (NEG-TRACE) Urine Glucose (UA) NEG mg/dL (NEG) Urine Ketones NEG mg/dL (NEG) Urine Occult Blood TRACE (NEG) Urine Nitrite NEG (NEG) Urine Bilirubin NEG (NEG) Urine Urobilinogen LESS THAN 2.0 MG/DL (LESS Urine Leukocyte Esterase NEG (NEG) Urine RBC 3 /hpf (0-3) Urine Uric Acid Crystals MANY /hpf (NONE) Urine Amorphous Sediment RARE Urine Mucus FEW /lpf (OCC) Microscopic Urinalysis Comment CATH-CULT NOT IND Lactic Acid Level 1.4 mmol/L (0.4-2.0) Blood Gas Puncture Site LT RADIAL Blood Gas Patient Temperature 98.6 Blood Gas HCO3 34 mmol/L (22-26) Blood Gas Base Excess 9.6 mmol/L (-2-2) Blood Gas Oxygen Saturation 99 % (90-100) Arterial Blood pH 7.42 (7.380-7.420) Arterial Blood Partial Pressure CO2 54 mmHg (38-42) Arterial Blood Partial Pressure O2 469 mmHG (61-120) Arterial Blood Oxygen Content 13.2 Vol % (12.0-20.0) Arterial Blood Carboxyhemoglobin 0.9 % (0-4) Arterial Blood Methemoglobin 0.6 % (0-2) Blood Gas Hemoglobin 8.6 G/DL (12.0-16.0) Oxygen Delivery Device VENTILATOR Blood Gas Ventilator Setting AC 18/500/5PEEP Blood Gas Inspired Oxygen 100 % Nasal Screen MRSA (PCR) MRSA NOT DETECTED (NOT Test 07/16/17 04:15 07/16/17 18:04 07/18/17 00:51 White Blood Count 8.2 TH/MM3 (4.0-11.0) Red Blood Count 3.24 MIL/MM3 (4.00-5.30) Hemoglobin 9.6 GM/DL (11.6-15.3) Hematocrit 27.9 % (35.0-46.0) Mean Corpuscular Volume 86.0 FL (80.0-100.0) Mean Corpuscular Hemoglobin 29.5 PG (27.0-34.0) Mean Corpuscular Hemoglobin Concent 34.3 % (32.0-36.0) Red Cell Distribution Width 14.5 % (11.6-17.2) Platelet Count 93 TH/MM3 (150-450) Mean Platelet Volume 8.8 FL (7.0-11.0) Neutrophils (%) (Auto) 94.1 % (16.0-70.0) Lymphocytes (%) (Auto) 2.7 % (9.0-44.0) Monocytes (%) (Auto) 2.9 % (0.0-8.0) Eosinophils (%) (Auto) 0.1 % (0.0-4.0) Basophils (%) (Auto) 0.2 % (0.0-2.0) Neutrophils # (Auto) 7.7 TH/MM3 (1.8-7.7) Lymphocytes # (Auto) 0.2 TH/MM3 (1.0-4.8) Monocytes # (Auto) 0.2 TH/MM3 (0-0.9) Eosinophils # (Auto) 0.0 TH/MM3 (0-0.4) Basophils # (Auto) 0.0 TH/MM3 (0-0.2) CBC Comment AUTO DIFF Differential Comment AUTO DIFF CONFIRMED Platelet Estimate LOW (NORMAL) Platelet Morphology Comment NORMAL (NORMAL) Ovalocytes 1+ (NORMAL) Blood Urea Nitrogen 19 MG/DL (7-18) Creatinine 0.58 MG/DL (0.50-1.00) Random Glucose 118 MG/DL (74-106) Calcium Level 8.2 MG/DL (8.5-10.1) Sodium Level 131 MEQ/L (136-145) Potassium Level 3.4 MEQ/L (3.5-5.1) 3.8 MEQ/L (3.5-5.1) Chloride Level 89 MEQ/L (98-107) Carbon Dioxide Level 33.7 MEQ/L (21.0-32.0) Anion Gap 8 MEQ/L (5-15) Estimat Glomerular Filtration Rate 101 ML/MIN (>89) Blood Gas Puncture Site RT RADIAL Blood Gas Patient Temperature 98.6 Blood Gas HCO3 36 mmol/L (22-26) Blood Gas Base Excess 8.7 mmol/L (-2-2) Blood Gas Oxygen Saturation 96 % (90-100) Arterial Blood pH 7.24 (7.380-7.420) Arterial Blood Partial Pressure CO2 86 mmHg (38-42) Arterial Blood Partial Pressure O2 109 mmHg (61-120) Arterial Blood Oxygen Content 14.9 Vol % (12.0-20.0) Arterial Blood Carboxyhemoglobin 1.0 % (0-4) Arterial Blood Methemoglobin 0.9 % (0-2) Blood Gas Hemoglobin 11.0 G/DL (12.0-16.0) Oxygen Delivery Device NASAL CANNULA Blood Gas Liter Flow 4 L/M Result Diagram: 07/16/17 0415 07/16/17 1804 Microbiology Microbiology Date/Time Source Procedure Growth Status 07/15/17 18:58 Blood Peripheral Aerobic Blood Culture - Preliminary NO GROWTH IN 3 DAYS Resulted 07/15/17 18:58 Blood Peripheral Anaerobic Blood Culture - Preliminary NO GROWTH IN 3 DAYS Resulted 07/15/17 18:50 Blood Peripheral Aerobic Blood Culture - Preliminary NO GROWTH IN 3 DAYS Resulted 07/15/17 18:50 Blood Peripheral Anaerobic Blood Culture - Preliminary NO GROWTH IN 3 DAYS Resulted 07/16/17 05:55 Sputum Endotracheal Gram Stain - Final Complete 07/16/17 05:55 Sputum Endotracheal Sputum Culture - Final LIGHT GROWTH NORMAL RESPIRATORY LORIN Complete Assessment and Plan Disease Oriented Problem List: (1) COPD with acute exacerbation (2) Lung nodule (3) Tobacco abuse (4) Mitral stenosis (5) Physical deconditioning Symptom Scale: (1) Anxiety 0-10 Scale: 0 (2) Dyspnea 0-10 Scale: 5 Pertinent Non-Medical Issues Psychosocial: x 2. . Pt's last past away 8 years ago. Has 4 children: Alvino Cortes and Ruddy cortes is from a previous marriage. They live in [place] and per reachable son, they have been estranged. There is no contact information available. Armond Bae Alvino Bae (local and only reachable son). Spiritual:islam Legal: Health Care surrogate completed- Alvino Bae (son) Ethical issues impacting care: None Important Contacts Alvino Bae Son: [phone] Prognosis Has severe COPD, prognosis is guarded. Overall should patient survive current hospitalization will likely be at risk for further infections, dyspnea, respiratory distress. Code Status: Alternative Code Plan == code- Intubation only. == capacity- appears to have capacity to make medical decisions == Health Care decision: completed health care surrogate form. Alvino Bae is the primary surrogate. == goals of care:family meeting between 1 to 2 pm completed. Pt changed her mind on intubation. She states if she does require reintubation she would want that again. She does not want tracheostomy at this point. Her son accepts that. If it gets to the point she needs tracheostomy, she would want transition to comfort measures. At this point patient is not ready for just comfort measures only. She does not want CPR/ compression/ or acls. Both had said not tracheotomy, should pt need reintubation, to reintubate and if pt could not be weaned off in a few days, transition to comfort. Family ask if after discharge, she can be on continuous O2. == Symptoms anxiety- prn available dyspnea- not dyspneic at this point, == Palliative care will follow up to make recommendation for symptom management , and follow up on goals of care. Attestation To help prompt me to consider important information that might be impacting today's encounter and assessment, information from prior notes written by myself or my colleagues may have been "brought forward" into today's note. My signature on this note, however, is an attestation that I personally performed the exam, history, and/or decision-making noted today, and, unless otherwise indicated, the interactions with patient, family, and staff as well as the review of records all occurred today. I also attest that the listed assessment and stated plan reflect my best clinical judgment today based on the combination of historical information, prior notes, and today's exam/ interactions. When time spent is documented, it refers only to time spent today by the signer, or if indicated, combined time spent today by collaborating physician/nurse practitioner. Jose Francisco New MD Jul 18, 2017 11:54
[2017-07-18] MEDS: RESP: ALBUTEROL 2.5 MG/IPRATROPIUM 0.5 MG NEB (PRN) INH ×2 (13:14→20:23)
[2017-07-18] MEDS ORDERED: METOCLOPRAMIDE HCL 10 MG/2 ML VIAL IV PUSH PRN (14:45)
--- NOTE | 2017-07-18 14:51 | HHI.PR ---
Subjective Remarks Patient in bed she appears ill. Says she feels sob . No wheezing at this time. She is with nausea in the morning. No v/d/c. Denies chest pain. Not eating much. Objective Vitals Vital Signs Date Time Temp Pulse Resp B/P (MAP) Pulse Ox O2 Delivery O2 Flow Rate FiO2 07/18/17 12:00 97.8 85 20 134/58 (83) 95 07/18/17 08:50 97 Nasal Cannula 3.00 07/18/17 08:00 97.1 74 20 144/65 (91) 97 07/18/17 06:31 100 50 07/18/17 04:23 96.7 82 19 129/60 (83) 100 07/18/17 02:30 97 50 07/17/17 23:15 97.5 102 16 146/64 (91) 96 07/17/17 21:58 97.2 101 17 155/69 (97) 94 07/17/17 20:00 97.7 86 19 163/74 (103) 96 07/17/17 20:00 86 07/17/17 18:00 85 07/17/17 16:00 98.0 73 18 143/66 (91) 100 07/17/17 16:00 85 07/17/17 14:47 94 50 I/O 07/17/17 07/17/17 07/17/17 07/18/17 07/18/17 07/18/17 07:00 15:00 23:00 07:00 15:00 23:00 Intake Total 280 ml 480 ml 450 ml Output Total 250 ml 126 ml 300 ml Balance -250 ml 154 ml 180 ml 450 ml Intake Oral 280 ml 480 ml 450 ml Output Urine Total 250 ml 125 ml 300 ml Stool Total 0 ml 1 ml # Bowel Movements 0 0 Result Diagram: 07/16/17 0415 07/16/17 1804 Imaging Last Impressions Chest X-Ray 07/15/17 1826 Signed Impressions: Service Date/Time: Saturday, July 15, 2017 18:31 - CONCLUSION: 1. Basilar air space disease with small pleural effusions. Endotracheal tube in good position. Mild cardiomegaly. Estrada Willis MD Head CT 07/15/17 0000 Signed Impressions: Service Date/Time: Sunday, July 16, 2017 01:34 - CONCLUSION: No acute intracranial disease. Emmanuel Mcconnell MD Objective Remarks GENERAL: Elderly pleasant female cachectic, chronically ill appearing. SKIN: Warm and dry. CARDIOVASCULAR: Regular rate and rhythm. 06/25 systolic murmur left apex, and left sternal border RESPIRATORY: Decreased breath sounds bilaterally. Mild scattered bilateral expiratory wheezing, no crackles. GASTROINTESTINAL: Abdomen soft, non-tender, nondistended. Bowel sounds present. MUSCULOSKELETAL: Extremities without clubbing, cyanosis, or edema. NEUROLOGICAL: Alert awake. Follows commands 4 A/P Assessment and Plan NEURO: Acute toxic metabolic encephalopathy likely related to CO2 retention. Resolved Anxiety Minimize sedation CT brain no acute abnormality RESP: Acute on chronic hypercapnic respiratory failure COPD on chronic 2 L O2 12 mm TONNY spiculated mass suspicious for malignancy (On CT 06/25/17) Patient has advanced COPD. CT scan from 2013 with emphysema and fibrotic scarring 2 nebs every 4 hours. Albuterol every 2 hours as needed. Solu-Medrol IV continue to taper as tolerated. Chest x-ray with bibasilar opacities. Effusion on the right which was present previously on CT chest 06/25/17. Antibiotics as per below. Use BiPAP as needed. Add IS, Ezpap Has been seen by Dr. Coates in the past, lung mass not worked up. Pulmonology consulted. CV: Hypertension Mitral stenosis Mild aortic stenosis Monitor hemodynamic Followed by Dr. Janell Sharma for mitral valvular disease. Mild/moderate MR on Echo 02/25/14, moderate stenosis, mild per Echo report 06/25/17. Hold diltiazem CD 120, use Cardizem 30 q6 Hold losartan/HCTZ for now as this may cause hyponatremia. GI: -Bedside swallow heart healthy diet FEN/RENAL: Hyponatremia Patient was treated for hyponatremia with sodium of 116 on 07/11. Sodium was 118 on 07/12 and then 130 on 07/15 So trend of correction appears appropriate. Has been on sodium 1 gram po tid, will continue. Tee in place. Monitor intake and output. Monitor electrolytes and replace as indicated. Nausea: antiemetics as need ID: H/o Influenza 06/25/17. CXR with bibasilar opacities. Has been treated empirically for HCAP with Zosyn and vancomycin -DC Vanc F/U sputum culture. Follow-up blood cultures. HEME: Monitor CBC ENDO: Euglycemic PROPH: SCDs for DVT prophylaxis. Lovenox 40 mg subcutaneous daily for DVT prophylaxis. Famotidine for stres ulcer prophylaxis. ACCESS: Peripheral IV providing adequate access at this time ALT CODE INTUBATION ONLY. DVT ppx SCD/TEDs Jessica Lam MD Jul 18, 2017 14:51
[2017-07-19] VITALS (10 sets, daily range): BP systolic 140–175; BP diastolic 56–73; PULSE 77–96; RESP 17–20; TEMP 96.4–98.7; O2SAT 92–99
[2017-07-19] MEDS: methylPREDNISolone SOD SUCC 125 MG/2 ML VIAL IV PUSH SCH ×2 (05:45→12:06)
[2017-07-19] MEDS: DILTIAZEM HCL 30 MG TAB PO SCH ×3 (05:47→18:07)
[2017-07-19] MEDS: PIPERACIL-TAZO 4.5 GM PREMIX 100 ML IV SCH ×3 (05:47→18:11)
[2017-07-19] MEDS: ENOXAPARIN SODIUM 40 MG/0.4 ML SYRINGE SQ SCH (05:51)
[2017-07-19 08:01] LABS: AUTOMATED NEUTROPHIL # 8.1 TH/MM3 (1.8-7.7); HEMATOCRIT 28.7 % (35.0-46.0); HEMOGLOBIN 9.6 GM/DL (11.6-15.3); LYMPH % 1.6 % (9.0-44.0); LYMPHOCYTE # 0.1 TH/MM3 (1.0-4.8); MEAN CELL VOLUME 89.8 FL (80.0-100.0); MEAN CORPUSCULAR HEMOGLOBIN 29.9 PG (27.0-34.0); MEAN CORPUSCULAR HGB CONC 33.3 % (32.0-36.0); MEAN PLATELET VOLUME 7.8 FL (7.0-11.0); MONOCYTE # 0.2 TH/MM3 (0-0.9); NEUT % 96.4 % (16.0-70.0); PLATELET COUNT 102 TH/MM3 (150-450); RED CELL DISTRIBUTION WIDTH 15.3 % (11.6-17.2); WHITE BLOOD COUNT 8.4 TH/MM3 (4.0-11.0)
--- NOTE | 2017-07-19 08:39 | PD.PN.STU ---
Subjective Remarks Follow up for hypercapnic respiratory failure. Patient states that she's feeling better today. When asked if she had any trouble breathing over night, she states, "I don't know." She states "I don't know," when asked about the presence of fever, chills, nausea, vomiting, chest pain. Objective Vitals Vital Signs Date Time Temp Pulse Resp B/P (MAP) Pulse Ox O2 Delivery O2 Flow Rate FiO2 07/19/17 04:05 97.0 77 17 140/59 (86) 99 07/19/17 02:21 98 40 07/19/17 00:05 96.4 83 18 143/56 (85) 97 07/18/17 20:30 97.6 85 16 144/65 (91) 99 07/18/17 20:25 97 Nasal Cannula 3.00 07/18/17 19:05 97.7 91 28 138/62 (87) 89 07/18/17 16:50 96.3 87 16 137/52 (80) 98 07/18/17 12:00 97.8 85 20 134/58 (83) 95 07/18/17 08:50 97 Nasal Cannula 3.00 I/O 07/18/17 07/18/17 07/18/17 07/19/17 07/19/17 07/19/17 07:00 15:00 23:00 07:00 15:00 23:00 Intake Total 480 ml 800 ml 100 ml 440 ml Output Total 300 ml 375 ml 450 ml Balance 180 ml 425 ml 100 ml -10 ml Intake Oral 480 ml 700 ml 240 ml IV Total 100 ml 100 ml 200 ml Output Urine Total 300 ml 375 ml 450 ml # Bowel Movements 0 0 Result Diagram: 07/19/17 0725 07/16/17 180 Imaging Last Impressions Chest X-Ray 07/15/17 1826 Signed Impressions: Service Date/Time: Saturday, July 15, 2017 18:31 - CONCLUSION: 1. Basilar air space disease with small pleural effusions. Endotracheal tube in good position. Mild cardiomegaly. Estrada Willis MD Head CT 07/15/17 0000 Signed Impressions: Service Date/Time: Sunday, July 16, 2017 01:34 - CONCLUSION: No acute intracranial disease. Emmanuel Mcconnell MD Objective Remarks GENERAL: Alert, oriented to self, month, and place, in NAD SKIN: Warm and dry. HEAD: Normocephalic. EYES: No scleral icterus. No injection or drainage. NECK: Supple, trachea midline. No JVD or lymphadenopathy. CARDIOVASCULAR: Regular rate and rhythm without gallops, or rubs. 06/25 systolic murmur on LSB. RESPIRATORY: Breath sounds decreased bilaterally, with scattered wheezes bilaterally. No accessory muscle use. GASTROINTESTINAL: Abdomen soft, non-tender, nondistended. MUSCULOSKELETAL: No cyanosis, or edema. BACK: Nontender without obvious deformity. No CVA tenderness. A/P Assessment and Plan The patient is a pleasant 77 year old female with a history of COPD who presented to the ED due to an episode of respiratory distress at her [facility] which required intubation at the scene by EVAC. She was admitted under critical care , and improved to the point of extubation on 07/16, and was transferred to the floor with BiPaP. NEURO: Acute toxic metabolic encephalopathy likely related to CO2 retention. Resolved Anxiety Minimize sedation CT brain no acute abnormality RESP: Acute on chronic hypercapnic respiratory failure COPD on chronic 2 L O2 12 mm TONNY spiculated mass suspicious for malignancy (On CT 06/25/17) Patient has advanced COPD. CT scan from 2013 with emphysema and fibrotic scarring 2 nebs every 4 hours. Albuterol every 2 hours as needed. Solu-Medrol IV continue to taper as tolerated. Chest x-ray with bibasilar opacities. Effusion on the right which was present previously on CT chest 06/25/17. Antibiotics as per below. Use BiPAP as needed. Add IS, Ezpap Has been seen by Dr. Coates in the past, lung mass not worked up. Pulmonology consulted. CV: Hypertension Mitral stenosis Mild aortic stenosis Monitor hemodynamic Followed by Dr. Janell Sharma for mitral valvular disease. Mild/moderate MR on Echo 02/25/14, moderate stenosis, mild per Echo report 06/25/17. Hold diltiazem CD 120, use Cardizem 30 q6 Hold losartan/HCTZ for now as this may cause hyponatremia. GI: -Bedside swallow heart healthy diet FEN/RENAL: Hyponatremia Patient was treated for hyponatremia with sodium of 116 on 07/11. Sodium was 118 on 07/12 and then 130 on 07/15 So trend of correction appears appropriate. Has been on sodium 1 gram po tid, will continue. Tee in place. Monitor intake and output. Monitor electrolytes and replace as indicated. Nausea: antiemetics as need ID: H/o Influenza 06/25/17. CXR with bibasilar opacities. Has been treated empirically for HCAP with Zosyn and vancomycin -DC Vanc F/U sputum culture. Follow-up blood cultures. HEME: Monitor CBC ENDO: Euglycemic PROPH: SCDs for DVT prophylaxis. Lovenox 40 mg subcutaneous daily for DVT prophylaxis. Famotidine for stres ulcer prophylaxis. ACCESS: Peripheral IV providing adequate access at this time ALT CODE INTUBATION ONLY. DVT ppx SCD/TEDs Discussed with the MS III at length, agree with above note Chandu Looney M3 Jul 19, 2017 08:39 Jessica Lam MD Jul 24, 2017 15:46
[2017-07-19 08:52] LABS: BICARBONATE 38.6 MEQ/L (21.0-32.0); CALCIUM 8.1 MG/DL (8.5-10.1); CREATININE 0.54 MG/DL (0.50-1.00); MAGNESIUM 2.9 MG/DL (1.5-2.5)
[2017-07-19] MEDS: SODIUM CHLORIDE 1 GRAM TAB PO SCH ×3 (09:15→18:07)
[2017-07-19] MEDS: FAMOTIDINE 20 MG TAB PO SCH ×2 (09:15→21:12)
[2017-07-19] MEDS: DOCUSATE SODIUM 50 MG/SENNA 8.6 MG TAB PO SCH ×2 (09:15→21:00)
[2017-07-19] MEDS: SODIUM CHLORIDE 0.9% FLUSH 10 ML FLUSH IV FLUSH SCH ×2 (09:16→21:00)
[2017-07-19] MEDS: RESP: ALBUTEROL 2.5 MG/IPRATROPIUM 0.5 MG NEB (PRN) INH (12:54)
--- NOTE | 2017-07-19 13:04 | HHI.PR ---
Subjective Remarks In bed appears weak. Asking for some water. No much cough. Eating better today. No n/v/d/c. Urine with dark color, appearing bloody No fever or chills. No abd pain Objective Vitals Vital Signs Date Time Temp Pulse Resp B/P (MAP) Pulse Ox O2 Delivery O2 Flow Rate FiO2 07/19/17 04:05 97.0 77 17 140/59 (86) 99 07/19/17 02:21 98 40 07/19/17 00:05 96.4 83 18 143/56 (85) 97 07/18/17 20:30 97.6 85 16 144/65 (91) 99 07/18/17 20:25 97 Nasal Cannula 3.00 07/18/17 19:05 97.7 91 28 138/62 (87) 89 07/18/17 16:50 96.3 87 16 137/52 (80) 98 I/O 07/18/17 07/18/17 07/18/17 07/19/17 07/19/17 07/19/17 07:00 15:00 23:00 07:00 15:00 23:00 Intake Total 480 ml 800 ml 100 ml 440 ml Output Total 300 ml 375 ml 450 ml Balance 180 ml 425 ml 100 ml -10 ml Intake Oral 480 ml 700 ml 240 ml IV Total 100 ml 100 ml 200 ml Output Urine Total 300 ml 375 ml 450 ml # Bowel Movements 0 0 Result Diagram: 07/19/17 0725 07/19/17 0725 Imaging Last Impressions Chest X-Ray 07/15/17 1826 Signed Impressions: Service Date/Time: Saturday, July 15, 2017 18:31 - CONCLUSION: 1. Basilar air space disease with small pleural effusions. Endotracheal tube in good position. Mild cardiomegaly. Estrada Willis MD Head CT 07/15/17 0000 Signed Impressions: Service Date/Time: Sunday, July 16, 2017 01:34 - CONCLUSION: No acute intracranial disease. Emmanuel Mcconnell MD Objective Remarks GENERAL: Elderly pleasant female cachectic, chronically ill appearing. SKIN: Warm and dry. CARDIOVASCULAR: Regular rate and rhythm. 3/6 systolic murmur left apex, and left sternal border RESPIRATORY: Decreased breath sounds bilaterally. Mild scattered bilateral expiratory wheezing, no crackles. GASTROINTESTINAL: Abdomen soft, non-tender, nondistended. Bowel sounds present. MUSCULOSKELETAL: Extremities without clubbing, cyanosis, or edema. NEUROLOGICAL: Alert awake. Follows commands 4 A/P Assessment and Plan NEURO: Acute toxic metabolic encephalopathy likely related to CO2 retention. Resolved Anxiety Minimize sedation CT brain no acute abnormality RESP: Acute on chronic hypercapnic respiratory failure COPD on chronic 2 L O2 12 mm TONNY spiculated mass suspicious for malignancy (On CT 06/25/17) Patient has advanced COPD. CT scan from 2013 with emphysema and fibrotic scarring 2 nebs every 4 hours. Albuterol every 2 hours as needed. Solu-Medrol IV continue to taper as tolerated. Chest x-ray with bibasilar opacities. Effusion on the right which was present previously on CT chest 06/25/17. Antibiotics as per below. Use BiPAP as needed. Add IS, Ezpap Has been seen by Dr. Coates in the past, lung mass not worked up. Pulmonology consulted. CV: Hypertension Mitral stenosis Mild aortic stenosis Monitor hemodynamic Followed by Dr. Janell Sharma for mitral valvular disease. Mild/moderate MR on Echo 02/25/14, moderate stenosis, mild per Echo report 06/25/17. Hold diltiazem CD 120, use Cardizem 30 q6 Hold losartan/HCTZ for now as this may cause hyponatremia. GI: -Bedside swallow heart healthy diet FEN/RENAL: Hyponatremia Patient was treated for hyponatremia with sodium of 116 on 07/11. Sodium was 118 on 07/12 and then 130 on 07/15 So trend of correction appears appropriate. Has been on sodium 1 gram po tid, will continue. Tee in place. Monitor intake and output. Monitor electrolytes and replace as indicated. Nausea: antiemetics as need ID: H/o Influenza 06/25/17. CXR with bibasilar opacities. Has been treated empirically for HCAP with Zosyn and vancomycin -DC Vanc F/U sputum culture negative so far . Follow-up blood cultures NTD UTI: Patient with dark urine. Check UA, cultures indicated, patient with poss UTI. Start Rocephin IV abx. Urine cx pending. Monitor UOP. Afebrile, no leukocytosis, no tachy. Monitor for signs of sepsis HEME: Monitor CBC ENDO: Euglycemic PROPH: SCDs for DVT prophylaxis. Lovenox 40 mg subcutaneous daily for DVT prophylaxis. Famotidine for stres ulcer prophylaxis. ACCESS: Peripheral IV providing adequate access at this time ALT CODE INTUBATION ONLY. DVT ppx SCD/TEDs Discussed with the patient, nurse DC plan: Pending improvement. Jessica Lam MD Jul 19, 2017 13:04
[2017-07-19 13:51] LABS: BACTERIA, URINE FEW /hpf; BILIRUBIN, URINE NEG (NEG); BLOOD, URINE LARGE (NEG); GLUCOSE,URINE NEG (NEG); KETONE, URINE NEG (NEG); NITRITE,URINE NEG (NEG); URINE COLOR YELLOW (YELLW/STRAW); URINE LEUKOCYTE ESTERASE TRACE (NEG)
[2017-07-19] MEDS: methylPREDNISolone SOD SUCC 40 MG/1 ML VIAL IV PUSH SCH (18:07)
--- NOTE | 2017-07-19 18:19 | HHI.PR ---
Subjective Remarks Feels tired . On O2 3 L. Has weakness. and cough. Objective Vital Signs Date Time Temp Pulse Resp B/P (MAP) Pulse Ox O2 Delivery O2 Flow Rate FiO2 07/19/17 16:06 93 Nasal Cannula 4.00 07/19/17 12:54 95 07/19/17 12:54 95 Nasal Cannula 4.00 07/19/17 04:05 97.0 77 17 140/59 (86) 99 07/19/17 02:21 98 40 07/19/17 00:05 96.4 83 18 143/56 (85) 97 07/18/17 20:30 97.6 85 16 144/65 (91) 99 07/18/17 20:25 97 Nasal Cannula 3.00 07/18/17 19:05 97.7 91 28 138/62 (87) 89 I/O 07/18/17 07/18/17 07/18/17 07/19/17 07/19/17 07/19/17 07:00 15:00 23:00 07:00 15:00 23:00 Intake Total 480 ml 800 ml 100 ml 440 ml Output Total 300 ml 375 ml 450 ml Balance 180 ml 425 ml 100 ml -10 ml Intake Oral 480 ml 700 ml 240 ml IV Total 100 ml 100 ml 200 ml Output Urine Total 300 ml 375 ml 450 ml # Bowel Movements 0 0 Result Diagram: 07/19/17 0725 07/19/17 0725 Objective Remarks GENERAL: Thin built, frail elderly female, mild short of breath. HEENT: Unremarkable. NECK: Supple. JVD not raised. CHEST: Equal air entry bilaterally,occ wheezes and decreased chest expansion. CARDIOVASCULAR: S1, S2 normal. ABDOMEN: Benign. EXTREMITIES: No edema. CENTRAL NERVOUS SYSTEM: Alert, oriented x 3, no focal deficit. Assessment and Plan Assessment and Plan IMPRESSION: 1. Hypercapnic respiratory failure, status post extubation. 2. Severe chronic obstructive pulmonary disease. 3. Nicotine use. 4. Anxiety disorder. 5. Hypertension Plan : 1. Will taper solumedrol to 40 mg Q6H 2. O2 at 3 L. 3. Duonebs qid. 4. Cont antibiotics as ordered 5. PT and OT 6. CBC,BMP in am Cara Whitaker MD Jul 19, 2017 18:19
[2017-07-19] MEDS: BUDESONIDE-FORMOTEROL 160/4.5 MCG INHALER INH SCH (21:00)
[2017-07-19] MEDS: cefTRIAXone INJ 1,000 MG in SODIUM CHLORIDE 0.9% INJ 100 ML IV SCH (21:13)
[2017-07-20] VITALS (16 sets, daily range): BP systolic 144–207; BP diastolic 57–83; PULSE 64–87; RESP 12–20; TEMP 97–99.6; O2SAT 95–100
[2017-07-20] MEDS: CHLORHEXIDINE GLUCONATE 2 % 1 PACK (2 CLOTHS) TOP SCH (00:07)
[2017-07-20] MEDS: methylPREDNISolone SOD SUCC 40 MG/1 ML VIAL IV PUSH SCH ×5 (00:27→23:35)
[2017-07-20] MEDS: DILTIAZEM HCL 30 MG TAB PO SCH ×5 (00:28→23:35)
[2017-07-20] MEDS: ENOXAPARIN SODIUM 40 MG/0.4 ML SYRINGE SQ SCH (06:32)
[2017-07-20] MEDS: FAMOTIDINE 20 MG TAB PO SCH ×3 (09:00→21:34)
[2017-07-20] MEDS: DOCUSATE SODIUM 50 MG/SENNA 8.6 MG TAB PO SCH ×3 (09:00→21:34)
[2017-07-20] MEDS: BUDESONIDE-FORMOTEROL 160/4.5 MCG INHALER INH SCH ×2 (09:00→21:00)
[2017-07-20] MEDS: SODIUM CHLORIDE 0.9% FLUSH 10 ML FLUSH IV FLUSH SCH ×2 (09:00→21:34)
[2017-07-20] MEDS: SODIUM CHLORIDE 1 GRAM TAB PO SCH ×4 (09:00→17:59)
--- NOTE | 2017-07-20 11:23 | RADRPT ---
EXAM DATE/TIME: 07/20/2017 10:55 [facility] COMPARISON: CHEST SINGLE AP, July 15, 2017, 19:20. INDICATIONS : Shortness of breath, Halicat. MEDICAL HISTORY : Carcinoma, lung. Chronic obstructive pulmonary disease. Hypertension SURGICAL HISTORY : None. ENCOUNTER: Initial ACUITY: 1 day PAIN SCORE: Non-responsive. LOCATION: Bilateral chest FINDINGS: A single AP portable semierect view of the chest was obtained. The previous noted endotracheal tube a nd nasogastric tube have been removed. Abnormal opacity remains in both lung bases with obscuration l eft hemidiaphragm and blunting of both costophrenic angles. The heart size is mildly enlarged. There is no distinct perihilar edema. Atherosclerotic changes are again noted in the aorta. The bony thorax is intact. CONCLUSION: 1. Status post interval extubation and removal of nasogastric tube. 2. Bibasal opacities and small effusions remain. The findings may indicate residual congestive heart failure. Alvino Chan MD on July 20, 2017 at 11:20 Board Certified Radiologist. This report was verified electronically.
--- NOTE | 2017-07-20 11:29 | HHI.PR ---
Subjective Remarks Pramod guerrero . Patient was noted unresponsive in the morning. She was not wearing BIPAP overnight. Patient was placed on BIPAP, ABG reviewed and patient with severe resp acidosis hypercapnic resp failure , discussed with Dr Good internet marketing analyst will transfer patient to ICU as requiring intubation. Patient in bed appears lethargic, responding to some questions and is too weak to follow commands. Denies chest pain. With sob no wheezing. No abd pian . no n/v/d/c. Objective Vitals Vital Signs Date Time Temp Pulse Resp B/P (MAP) Pulse Ox O2 Delivery O2 Flow Rate FiO2 07/20/17 10:56 97.0 86 20 164/78 (106) 97 07/20/17 10:30 99 40 07/20/17 04:00 98.2 85 18 157/72 (100) 97 07/20/17 02:22 96 Nasal Cannula 4.00 07/20/17 02:17 95 40 07/20/17 00:00 97.7 87 18 171/79 (109) 96 07/19/17 21:24 95 40 07/19/17 20:00 98.0 85 19 155/69 (97) 93 07/19/17 16:06 93 Nasal Cannula 4.00 07/19/17 16:00 97.6 96 18 157/60 (92) 96 07/19/17 12:54 95 07/19/17 12:54 95 Nasal Cannula 4.00 07/19/17 12:00 98.7 85 18 175/73 (107) 92 I/O 07/19/17 07/19/17 07/19/17 07/20/17 07/20/17 07/20/17 07:00 15:00 23:00 07:00 15:00 23:00 Intake Total 440 ml 580 ml 240 ml Output Total 450 ml 450 ml 525 ml Balance -10 ml 130 ml -285 ml Intake Oral 240 ml 580 ml 240 ml IV Total 200 ml Output Urine Total 450 ml 450 ml 525 ml # Bowel Movements 0 0 Result Diagram: 07/19/17 0725 07/19/17 0725 Imaging Last Impressions Chest X-Ray 07/20/17 0000 Signed Impressions: Service Date/Time: Thursday, July 20, 2017 12:52 - CONCLUSION: 1. Embol intubation and placement of nasogastric tube. 2. No change in the patchy opacity at the left lung base. Alvino Chan MD Head CT 07/15/17 0000 Signed Impressions: Service Date/Time: Sunday, July 16, 2017 01:34 - CONCLUSION: No acute intracranial disease. Emmanuel Mcconnell MD Objective Remarks GENERAL: Elderly female cachectic, chronically ill appearing, lethargic , with sob, in distress. SKIN: Warm and dry. HEAD: Atraumatic. Normocephalic. EYES: Pupils equal and round. No scleral icterus. No injection or drainage. ENT: No nasal bleeding or discharge. Mucous membranes pink and moist. NECK: Trachea midline. No JVD. CARDIOVASCULAR: Regular rate and rhythm. 06/25 systolic murmur left apex, and left sternal border RESPIRATORY: + sob, indistress, Decreased breath sounds bilaterally. Mild scattered bilateral expiratory wheezing, no crackles. GASTROINTESTINAL: Abdomen soft, non-tender, nondistended. Bowel sounds present. MUSCULOSKELETAL: Extremities without clubbing, cyanosis, or edema. NEUROLOGICAL: lethargic Doesn't follow commands. A/P Assessment and Plan NEURO: 07/20/17 Acute toxic metabolic encephalopathy likely related to CO2 retention. Patient refused BIPAP overnight. Patient is placed on BiPAP right away. CXR, cbc , bmp, stat, ABG stat reviewed with severe resp acidosis, hypercapnic respiratory failure. Discussed with internet marketing analyst Dr Good as patient needs intubation. Patient code status is intubation only - alternative code status. Anxiety Minimize sedation Previous CT brain no acute abnormality RESP: 07/20/17 Acute on chronic hypercapnic respiratory failure COPD on chronic 2L O2 12 mm TONNY spiculated mass suspicious for malignancy (On CT 06/25/17) Patient has advanced COPD. CT scan from 2013 with emphysema and fibrotic scarring 2 nebs every 4 hours. Albuterol every 2 hours as needed. Solu-Medrol IV continue to taper as tolerated. Chest x-ray with bibasilar opacities. Effusion on the right which was present previously on CT chest 06/25/17. Antibiotics as per below. Use BiPAP as needed. Add IS, Ezpap Has been seen by Dr. Coates in the past, lung mass not worked up. Pulmonology consulted. CV: Hypertension Mitral stenosis Mild aortic stenosis Monitor hemodynamic Followed by Dr. Janell Sharma for mitral valvular disease. Mild/moderate MR on Echo 02/25/14, moderate stenosis, mild per Echo report 06/25/17. Hold diltiazem CD 120, use Cardizem 30 q6 Hold losartan/HCTZ for now as this may cause hyponatremia. GI: -Bedside swallow heart healthy diet FEN/RENAL: Hyponatremia Patient was treated for hyponatremia with sodium of 116 on 07/11. Sodium was 118 on 07/12 and then 130 on 07/15 So trend of correction appears appropriate. Has been on sodium 1 gram po tid, will continue. Tee in place. Monitor intake and output. Monitor electrolytes and replace as indicated. Nausea: antiemetics as need ID: H/o Influenza 06/25/17. CXR with bibasilar opacities. Has been treated empirically for HCAP with Zosyn and vancomycin -DC Vanc F/U sputum culture negative so far . Follow-up blood cultures NTD UTI: Patient with dark urine. Check UA, cultures indicated, patient with poss UTI. Start Rocephin IV abx. Urine cx pending. Monitor UOP. Afebrile, no leukocytosis, no tachy. Monitor for signs of sepsis HEME: Monitor CBC ENDO: Euglycemic PROPH: SCDs for DVT prophylaxis. Lovenox 40 mg subcutaneous daily for DVT prophylaxis. Famotidine for stres ulcer prophylaxis. ACCESS: Peripheral IV providing adequate access at this time ALT CODE INTUBATION ONLY. DVT ppx SCD/TEDs Discussed with the patient, nurse DC plan: patient with acute deterioration, she refused BiPAP overnight, she is noted 07/20 lethargic and dessating, ABG reviewed, patient is transferred to ICU for intubation. Critical time spent 35 minutes Jessica Lam MD Jul 20, 2017 11:29
[2017-07-20] MEDS ORDERED: MIDAZOLAM HCL 5 MG/ML VIAL (1 ML) ONE (11:34)
[2017-07-20] MEDS: fentaNYL 2,500 MCG/NS 250 ML IV PRN (12:00)
[2017-07-20] MEDS: RESP: ALBUTEROL 2.5 MG/IPRATROPIUM 0.5 MG NEB (PRN) INH (12:15)
--- NOTE | 2017-07-20 12:57 | HHI.CCPN ---
Subjective Remarks/Hospital Course 77 yo WF with PMH of COPD on 2 L home O2, hypertension. She was recently admitted to [facility] 06/25/17- 07/03/17 due to acute COPD exacerbation with acute on chronic hypercapnic respiratory failure that was triggered by influenza A. She was discharged to SNF. Reportedly she was doing reasonably well and participating in rehab. She had an episode of respiratory distress around 1 AM on 07/15 and another episode later in the evening which prompted staff to call [facility]. When [facility] arrived she was intubated at the scene due to apnea. She received 1 L normal saline bolus, vancomycin, Zosyn, DuoNeb 3 in the emergency department. Critical care medicine is consulted for admission. She is afebrile with no leukocytosis. CXR with bibasilar opacities. She has chronic CO2 retention SUBJ 07/16: Remains intubated on minimal sedation. Wakes up easily follows commands. Will initiate CPAP attempt wean to extubate. 07/17: Extubated yesterday tolerating well good saturation on nasal cannula. 07/20: RECONSULT NOTE: reconsulted for obtundation and agonal respiratory distress. Right response from floor for agonal respirations. When I evaluated the patient she was agonal and in extremis. I emergently intubated the patient , see separate procedure note for details. Her initial PCO2 was 128. I had a discussion with the son who reiterates the last palliative care note that the family despite understanding this is an end-stage disease process and she will from this, wants her intubated for "one more try ". The patient is intended no information is available from the patient. ROS unobtainable. Objective Vital Signs Date Time Temp Pulse Resp B/P (MAP) Pulse Ox O2 Delivery O2 Flow Rate FiO2 07/20/17 11:44 96 40 07/20/17 10:56 97.0 86 20 164/78 (106) 07/20/17 02:22 Nasal Cannula 4.00 Intake and Output 07/20/17 07/20/17 07/20/17 07:59 15:59 23:59 Intake Total 240 ml Output Total 250 ml Balance -10 ml Result Diagram: 07/19/1772407/19/17724 Other Results Laboratory Tests Test 07/20/17 10:46 07/20/17 12:15 Blood Gas Puncture Site RT RADIAL ART LINE Blood Gas Patient Temperature 98.6 98.6 Blood Gas HCO3 41 mmol/L (22-26) 38 mmol/L (22-26) Blood Gas Base Excess 11.7 mmol/L (-2-2) 13.3 mmol/L (-2-2) Blood Gas Oxygen Saturation 89 % (90-100) 97 % (90-100) Arterial Blood pH 7.13 (7.380-7.420) 7.51 (7.380-7.420) Arterial Blood Partial Pressure CO2 128 mmHg (38-42) 48 mmHg (38-42) Arterial Blood Partial Pressure O2 68 mmHg (61-120) 117 mmHg (61-120) Arterial Blood Oxygen Content 12.3 Vol % (12.0-20.0) 13.1 Vol % (12.0-20.0) Arterial Blood Carboxyhemoglobin 1.2 % (0-4) 1.2 % (0-4) Arterial Blood Methemoglobin 1.0 % (0-2) 1.4 % (0-2) Blood Gas Hemoglobin 9.8 G/DL (12.0-16.0) 9.5 G/DL (12.0-16.0) Oxygen Delivery Device BIPAP VENTILATOR Blood Gas Ventilator Setting 51/+5/40 A/C 500/18/4PEEP Blood Gas Inspired Oxygen 40 % 40 % Objective Remarks GENERAL: Elderly female in acute distress, obtunded, agonal SKIN: Warm and dry. HEAD: Atraumatic. Normocephalic. EYES: Pupils equal and round, 2 mm and reactive bilaterally. No scleral icterus. No injection or drainage. ENT: No nasal bleeding or discharge. NECK: Trachea midline. No JVD. CARDIOVASCULAR: Regular rate and rhythm. Sinus RESPIRATORY: Agonal respirations. Nonrebreather in place. Obtunded. Tachypneic. Labored. GASTROINTESTINAL: Abdomen soft, non-tender, nondistended. MUSCULOSKELETAL: Extremities without clubbing, cyanosis, or edema. NEUROLOGICAL: RASS -4. Obtunded. Withdraws to pain weekly. Does not follow commands. A/P Assessment and Plan Assessment: 77-year-old female with end-stage COPD and now recurrent COPD exacerbation with severe acute hypercapnic and hypoxic respiratory failure. This is likely a terminal process and she is unlikely to survive this and improved clinically. At the family's request we will continue aggressive measures and reintubate her. Remains chronically ill. NEURO: Acute toxic metabolic encephalopathy secondary to CO2 retention Anxiety Fentanyl infusion for goal RASS -2 CT brain no acute abnormality RESP: Acute on chronic hypercapnic and hypoxic respiratory failure COPD on chronic 2 L O2 12 mm TONNY spiculated mass suspicious for malignancy (On CT 06/25/17) Patient has advanced COPD. CT scan from 2013 with emphysema and fibrotic scarring 2 nebs every 4 hours. Albuterol every 2 hours as needed. Solu-Medrol 40 mg IV every 8 Chest x-ray with bibasilar opacities. Effusion on the right which was present previously on CT chest 06/25/17 Has been seen by Dr. Coates in the past, lung mass not worked up. Pulmonology consulted CV: Hypertension Mitral stenosis Mild aortic stenosis Monitor hemodynamic Followed by Dr. Janell Sharma for mitral valvular disease. Mild/moderate MR on Echo 02/25/14, moderate stenosis, mild per Echo report 06/25/17. Hold diltiazem CD 120, use Cardizem 30 q6 via OG. Hold losartan/HCTZ for now as this may cause hyponatremia. Labetalol and hydralazine as needed for goal systolic less than 160 GI: Acute protein calorie malnutrition -severe Place orogastric tube and start tube feeds FEN/RENAL: Hyponatremia Patient was treated for hyponatremia with sodium of 116 on 07/11. Sodium was 118 on 07/12 and then 130 on 07/15 So trend of correction appears appropriate. Has been on sodium 1 gram po tid, will continue. Tee in place. Monitor intake and output. Monitor electrolytes and replace as indicated. ICU electrolyte protocol ID: h/o Influenza 06/25/17. CXR with bibasilar opacities. Has been treated empirically for HCAP F/U sputum culture. Follow-up blood cultures. HEME: Monitor CBC ENDO: Euglycemic PROPH: SCDs for DVT prophylaxis. Lovenox 40 mg subcutaneous daily for DVT prophylaxis. Famotidine for stres ulcer prophylaxis. ACCESS: Peripheral IV providing adequate access at this time ALT CODE INTUBATION ONLY. Palliative care consulted. This patient remains critically ill with one or more organ systems which are or may become a threat to life. I have spent in excess of 40 minutes discontinuously in the care and management of this patient. This time is exclusive of procedures, and includes, but is not limited to, evaluation of the patient, review of the medical record, discussions with family, consultants, nursing staff, or respiratory therapy, and documentation in the medical record. Stewart Miramontes MD Jul 20, 2017 12:57
[2017-07-20] MEDS ORDERED: SODIUM PHOSPHATE INJ 30 MMOL in SODIUM CHLOR 0.9% 250 ML INJ 240 ML IV PRN (13:00)
[2017-07-20] MEDS ORDERED: MAGNESIUM SULFATE INJ 2 GM in SODIUM CHLORIDE 0.9% INJ 96 ML IV PRN (13:00)
[2017-07-20] MEDS ORDERED: POTASSIUM CHLORIDE 25 MEQ EFFERVESCENT TAB PO PRN (13:00)
[2017-07-20] MEDS ORDERED: POTASSIUM CHLOR 40 MEQ PREMIX 100 ML IV PRN ×2 (13:00)
[2017-07-20] MEDS ORDERED: DEXTROSE 50% IN WATER 50 ML VIAL(D50) IV PUSH PRN (13:00)
[2017-07-20] MEDS ORDERED: POTASSIUM PHOSPHATE MONOBASIC 500 MG TAB PO PRN (13:00)
[2017-07-20] MEDS ORDERED: POTASSIUM PHOSPHATE MONOBASIC 500 MG TAB PO/TUBE PRN (13:00)
[2017-07-20] MEDS ORDERED: POTASSIUM PHOSPHATE INJ 30 MMOL in SODIUM CHLOR 0.9% 250 ML INJ 250 ML IV PRN (13:00)
[2017-07-20] MEDS ORDERED: MAGNESIUM OXIDE 400 MG TAB PO PRN (13:00)
[2017-07-20] MEDS ORDERED: POTASSIUM CHLOR 20 MEQ PREMIX 100 ML IV PRN ×2 (13:00)
[2017-07-20] MEDS ORDERED: RESP: ALBUTEROL 2.5 MG/IPRATROPIUM 0.5 MG NEB (PRN) INH (13:00)
[2017-07-20] MEDS ORDERED: MAGNESIUM SULFATE INJ 4 GM in SODIUM CHLORIDE 0.9% INJ 92 ML IV PRN (13:00)
[2017-07-20] MEDS: LABETALOL HCL 100 MG/20 ML VIAL IV PUSH PRN ×2 (13:11→17:52)
--- NOTE | 2017-07-20 13:33 | RADRPT ---
EXAM DATE/TIME: 07/20/2017 12:52 [facility] COMPARISON: CHEST SINGLE AP, July 20, 2017, 10:55. INDICATIONS : Respiratory failure. Status post intubation.. MEDICAL HISTORY : Carcinoma, lung. Chronic obstructive pulmonary disease. Hypertension SURGICAL HISTORY : None. ENCOUNTER: Subsequent ACUITY: 1 day PAIN SCORE: Non-responsive. LOCATION: Bilateral chest FINDINGS: A single AP erect portable view of the chest was obtained and demonstrates interval placement of endo tracheal tube with the tip approximately 3 cm above the bobbi. Nasogastric tube has been placed and is seen coursing through the esophagus into the stomach. Hazy opacity remains at the left lung base w ith partial obscuration of the left hemidiaphragm. The costophrenic angles appear mildly blunted. The bony thorax is intact. CONCLUSION: 1. Embol intubation and placement of nasogastric tube. 2. No change in the patchy opacity at the left lung base. Alvino Chan MD on July 20, 2017 at 13:16 Board Certified Radiologist. This report was verified electronically.
--- NOTE | 2017-07-20 13:52 | PD.PROCEDR ---
Procedure Note Procedure Endotracheal Intubation Diagnosis: Acute hypercapnic respiratory failure Indications: Acute hypoxic and hypercarbic respiratory failure Consent: Emergent Anesthesia: Versed 5 mg IV, rocuronium 100 mg IV Description of the Procedure: The patient was positioned in the sniffing position. Pre-oxygenation was performed using a nonrebreather mask. Anesthesia was induced via rapid sequence. A Rojas #2 was used for laryngoscopy and a Grade IIa view was obtained. A 8.0 cuffed endotracheal tube was inserted atraumatically through the vocal cords. Confirmation of correct endotracheal tube placement was made by equal and bilateral breath sounds and colorimetric CO2 detection. The endotracheal tube was secured at 22 cm at the teeth. There were no immediate complications noted. The patient remained hemodynamically stable throughout the procedure. A chest x-ray has been ordered. I personally performed the procedure. Stewart Miramontes MD Jul 20, 2017 13:52
--- NOTE | 2017-07-20 13:53 | PD.PROCEDR ---
Procedure Note Procedure Procedure: Arterial Line Placement Right radial arterial line Diagnosis: Acute hypoxic hypercarbic respiratory failure Indications: Need for serial arterial blood gas sampling Consent: Emergent Description of the Procedure: The right wrist was prepped and draped sterilely. 1% lidocaine was used for local anesthesia. The pulse was located and a needle was advanced into the artery. A 20 gauge, 12 cm catheter was advanced into the artery using a modified Seldinger technique. The catheter was sutured to the skin and a sterile dressing was applied. The catheter was connected to a pressure transducer and an arterial waveform was noted. There were no immediate complications noted. There was minimal EBL. I personally performed the procedure. Stewart Miramontes MD Jul 20, 2017 13:53
--- NOTE | 2017-07-20 14:38 | EKG ---
Date Performed: 07/20/2017 Time Performed: 11:06:10 PTAGE: 77 years EKG: Sinus rhythm LEFT ATRIAL ENLARGEMENT LEFT VENTRICULAR HYPERTROPHY AND ST-T CHANGE ABNORMAL ECG PREVIOUS TRACING : 07/15/2017 18.26 Since the previous tracing, no significant change noted DOCTOR: Rico Graf Interpretating Date/Time 07/20/2017 14:36:04
[2017-07-20] MEDS: RESP: ALBUTEROL 2.5 MG/IPRATROPIUM 0.5 MG NEB (SCH) INH ×2 (14:57→21:42)
--- NOTE | 2017-07-20 17:57 | HHI.PR ---
Subjective Remarks WORSENING RESPIRATORY FAILURE DURING NIGHT NOW ON VENT SEDATED Objective Vital Signs Date Time Temp Pulse Resp B/P (MAP) Pulse Ox O2 Delivery O2 Flow Rate FiO2 07/20/17 16:00 64 07/20/17 16:00 98.8 64 19 144/58 (86) 99 07/20/17 16:00 35 07/20/17 15:12 99 35 07/20/17 14:00 78 07/20/17 12:00 97.0 78 18 207/83 (124) 100 Automatic Cuff 07/20/17 12:00 78 07/20/17 11:44 96 40 07/20/17 11:40 40 07/20/17 10:56 97.0 86 20 164/78 (106) 97 07/20/17 10:30 99 40 07/20/17 04:00 98.2 85 18 157/72 (100) 97 07/20/17 02:22 96 Nasal Cannula 4.00 07/20/17 02:17 95 40 07/20/17 00:00 97.7 87 18 171/79 (109) 96 07/19/17 21:24 95 40 07/19/17 20:00 98.0 85 19 155/69 (97) 93 I/O 07/19/17 07/19/17 07/19/17 07/20/17 07/20/17 07/20/17 07:00 15:00 23:00 07:00 15:00 23:00 Intake Total 440 ml 580 ml 240 ml Output Total 450 ml 450 ml 525 ml Balance -10 ml 130 ml -285 ml Intake Oral 240 ml 580 ml 240 ml IV Total 200 ml Output Urine Total 450 ml 450 ml 525 ml # Bowel Movements 0 0 Result Diagram: 07/19/1772407/19/17724 Objective Remarks GENERAL: SKIN: Warm and dry.ON VENT SUPPORT HEAD: Atraumatic. Normocephalic. EYES: Pupils equal and round. No scleral icterus. No injection or drainage. ENT: No nasal bleeding or discharge. Mucous membranes pink and moist. NECK: Trachea midline. No JVD. CARDIOVASCULAR: Regular rate and rhythm. RESPIRATORY: No accessory muscle use. Clear to auscultation. Breath sounds equal bilaterally. GASTROINTESTINAL: Abdomen soft, non-tender, nondistended. Hepatic and splenic margins not palpable. MUSCULOSKELETAL: Extremities without clubbing, cyanosis, or edema. No obvious deformities. NEUROLOGICAL: Awake and alert. No obvious cranial nerve deficits. Motor grossly within normal limits. Five out of 5 muscle strength in the arms and legs. Normal speech. PSYCHIATRIC: Appropriate mood and affect; insight and judgment normal. Assessment and Plan Assessment and Plan IMPRESSION RESPIRATORY FAILURE COPD PLAN VENT SUPPORT BBRONCHODILATOR THERAPY WEAN TOLERATED Jaxon Coates MD Jul 20, 2017 17:57
[2017-07-20] MEDS: INSULIN NovoLIN REGULAR SUPPLEMENTAL SCALE SQ SCH ×2 (18:00→23:35)
[2017-07-20] MEDS: CHLORHEXIDINE 0.12% (ORAL KIT) 15 ML CUP MT SCH (21:35)
[2017-07-20] MEDS: cefTRIAXone INJ 1,000 MG in SODIUM CHLORIDE 0.9% INJ 100 ML IV SCH (21:35)
[2017-07-20] MEDS: hydrALAZINE HCL 20 MG/ML VIAL IV PUSH PRN (21:40)
[2017-07-21] VITALS (17 sets, daily range): BP systolic 106–192; BP diastolic 41–79; PULSE 57–94; RESP 12–20; TEMP 97.3–99.6; O2SAT 97–100
[2017-07-21] MEDS: RESP: ALBUTEROL 2.5 MG/IPRATROPIUM 0.5 MG NEB (SCH) INH ×4 (03:49→20:32)
[2017-07-21] MEDS: CHLORHEXIDINE GLUCONATE 2 % 1 PACK (2 CLOTHS) TOP SCH (03:51)
[2017-07-21 04:50] LABS: HEMATOCRIT 25.8 % (35.0-46.0); HEMOGLOBIN 8.5 GM/DL (11.6-15.3); MEAN CELL VOLUME 88.6 FL (80.0-100.0); MEAN CORPUSCULAR HEMOGLOBIN 29.3 PG (27.0-34.0); MEAN CORPUSCULAR HGB CONC 33.1 % (32.0-36.0); MEAN PLATELET VOLUME 7.8 FL (7.0-11.0); PLATELET COUNT 91 TH/MM3 (150-450); RED BLOOD COUNT 2.91 MIL/MM3 (4.00-5.30); WHITE BLOOD COUNT 5.4 TH/MM3 (4.0-11.0)
[2017-07-21 05:13] LABS: BICARBONATE 39.3 MEQ/L (21.0-32.0); CREATININE 0.52 MG/DL (0.50-1.00)
[2017-07-21] MEDS: INSULIN NovoLIN REGULAR SUPPLEMENTAL SCALE SQ SCH ×3 (05:18→18:00)
[2017-07-21] MEDS: DILTIAZEM HCL 30 MG TAB PO SCH ×3 (05:22→17:53)
[2017-07-21] MEDS: ENOXAPARIN SODIUM 40 MG/0.4 ML SYRINGE SQ SCH (05:22)
[2017-07-21] MEDS: methylPREDNISolone SOD SUCC 40 MG/1 ML VIAL IV PUSH SCH ×3 (05:23→17:53)
[2017-07-21] MEDS: CHLORHEXIDINE 0.12% (ORAL KIT) 15 ML CUP MT SCH ×2 (08:00→20:05)
[2017-07-21] MEDS: SODIUM CHLORIDE 0.9% FLUSH 10 ML FLUSH IV FLUSH SCH ×2 (09:00→20:05)
[2017-07-21] MEDS: BUDESONIDE-FORMOTEROL 160/4.5 MCG INHALER INH SCH ×2 (09:00→21:00)
[2017-07-21] MEDS: DOCUSATE SODIUM 50 MG/SENNA 8.6 MG TAB PO SCH ×2 (09:01→20:05)
[2017-07-21] MEDS: FAMOTIDINE 20 MG TAB PO SCH ×2 (09:01→20:05)
[2017-07-21] MEDS: hydrALAZINE HCL 20 MG/ML VIAL IV PUSH PRN ×2 (09:01→20:04)
[2017-07-21] MEDS: SODIUM CHLORIDE 1 GRAM TAB PO SCH (09:01)
[2017-07-21] MEDS ORDERED: DEXMEDETOMIDINE 200 MCG in NS 48 ML IV PRN (10:45)
--- NOTE | 2017-07-21 10:48 | HHI.CCPN ---
Subjective Remarks/Hospital Course 77 yo WF with PMH of COPD on 2 L home O2, hypertension. She was recently admitted to [facility] 06/25/17- 07/03/17 due to acute COPD exacerbation with acute on chronic hypercapnic respiratory failure that was triggered by influenza A. She was discharged to SNF. Reportedly she was doing reasonably well and participating in rehab. She had an episode of respiratory distress around 1 AM on 07/15 and another episode later in the evening which prompted staff to call E VAC. When E VAC arrived she was intubated at the scene due to apnea. She received 1 L normal saline bolus, vancomycin, Zosyn, DuoNeb 3 in the emergency department. Critical care medicine is consulted for admission. She is afebrile with no leukocytosis. CXR with bibasilar opacities. She has chronic CO2 retention SUBJ 07/16: Remains intubated on minimal sedation. Wakes up easily follows commands. Will initiate CPAP attempt wean to extubate. 07/17: Extubated yesterday tolerating well good saturation on nasal cannula. 07/20: RECONSULT NOTE: reconsulted for obtundation and agonal respiratory distress. Right response from floor for agonal respirations. When I evaluated the patient she was agonal and in extremis. I emergently intubated the patient , see separate procedure note for details. Her initial PCO2 was 128. I had a discussion with the son who reiterates the last palliative care note that the family despite understanding this is an end-stage disease process and she will from this, wants her intubated for "one more try ". The patient is intended no information is available from the patient. ROS unobtainable. 07/21: Remains intubated off sedation but continues to be tachypneic. Failed 2 attempts at CPAP trial today with severe tachypnea and respiratory distress Objective Vital Signs Date Time Temp Pulse Resp B/P (MAP) Pulse Ox O2 Delivery O2 Flow Rate FiO2 07/21/17 10:20 35 07/21/17 08:58 99 07/21/17 08:00 98.7 71 20 128/61 (83) 146/47 (80) 07/20/17 02:22 Nasal Cannula 4.00 Intake and Output 07/21/17 07/21/17 07/21/17 07:59 15:59 23:59 Intake Total 413 ml Output Total 450 ml Balance -37 ml Result Diagram: 07/21/17 0345 07/21/17 0345 Other Results Microbiology Date/Time Source Procedure Growth Status 07/19/17 13:10 Urine Clean Catch Urine Culture - Final NO GROWTH IN 48 HOURS. Complete Laboratory Tests Test 07/20/17 10:46 07/20/17 12:15 07/20/17 18:10 07/21/17 05:44 Blood Gas Puncture Site RT RADIAL ART LINE ART LINE ART LINE Blood Gas Patient Temperature 98.6 98.6 98.6 98.6 Blood Gas HCO3 41 mmol/L (22-26) 38 mmol/L (22-26) 37 mmol/L (22-26) 39 mmol/L (22-26) Blood Gas Base Excess 11.7 mmol/L (-2-2) 13.3 mmol/L (-2-2) 13.5 mmol/L (-2-2) 13.7 mmol/L (-2-2) Blood Gas Oxygen Saturation 89 % (90-100) 97 % (90-100) 96 % (90-100) 96 % ( 90-100) Arterial Blood pH 7.13 (7.380-7.420) 7.51 (7.380-7.420) 7.54 (7.380-7.420) 7.44 (7.380-7.420) Arterial Blood Partial Pressure CO2 128 mmHg (38-42) 48 mmHg (38-42) 44 mmHg (38-42) 58 mmHg (38-42) Arterial Blood Partial Pressure O2 68 mmHg (61-120) 117 mmHg (61-120) 74 mmHg (61-120) 94 mmHg (61-120) Arterial Blood Oxygen Content 12.3 Vol % (12.0-20.0) 13.1 Vol % (12.0-20.0) 11.9 Vol % (12.0-20.0) 10.9 Vol % (12.0-20.0) Arterial Blood Carboxyhemoglobin 1.2 % (0-4) 1.2 % (0-4) 1.1 % (0-4) 1.1 % (0-4) Arterial Blood Methemoglobin 1.0 % (0-2) 1.4 % (0-2) 1.3 % (0-2) 1.3 % (0-2) Blood Gas Hemoglobin 9.8 G/DL (12.0-16.0) 9.5 G/DL (12.0-16.0) 8.8 G/DL (12.0-16.0) 8.0 G/DL (12.0-16.0) Oxygen Delivery Device BIPAP VENTILATOR VENTILATOR VENTILATOR Blood Gas Ventilator Setting 51/+5/40 A/C 500/18/4PEEP A/C 500/14/5PEEP SEE COMMENT Blood Gas Inspired Oxygen 40 % 40 % 35 % 35 % Objective Remarks GENERAL: Elderly female in acute distress, on attempted CPAP SKIN: Warm and dry. HEAD: Atraumatic. Normocephalic. EYES: Pupils equal and round, 2 mm and reactive bilaterally. No scleral icterus. No injection or drainage. ENT: No nasal bleeding or discharge. NECK: Trachea midline. No JVD. CARDIOVASCULAR: Regular rate and rhythm. Sinus RESPIRATORY: Tachypneic. Labored breathing on attempted CPAP. Placed back on full vent support GASTROINTESTINAL: Abdomen soft, non-tender, nondistended. MUSCULOSKELETAL: Extremities without clubbing, cyanosis, or edema. NEUROLOGICAL: RASS 0. Awake alert follows commands though in distress, moving all extremities A/P Assessment and Plan Assessment: 77-year-old female with end-stage COPD and now recurrent COPD exacerbation with severe hypercapnic and hypoxic respiratory failure. At the family's request we will continue aggressive measures. Remains chronically ill. NEURO: Acute toxic metabolic encephalopathy secondary to CO2 retention Anxiety Fentanyl infusion for goal RASS -2 Start Precedex to facilitate vent weaning CT brain no acute abnormality RESP: Acute on chronic hypercapnic and hypoxic respiratory failure COPD on chronic 2 L O2 12 mm TONNY spiculated mass suspicious for malignancy (On CT 06/25/17) Patient has advanced COPD. CT scan from 2013 with emphysema and fibrotic scarring Duonebs every 4 hours. Albuterol every 2 hours as needed. Solu-Medrol 40 mg IV every 8. Add Budesonide INH Chest x-ray with bibasilar opacities. Effusion on the right which was present previously on CT chest 06/25/17 Has been seen by Dr. Coates in the past, lung mass not worked up. Pulmonology consulted CV: Hypertension Mitral stenosis Mild aortic stenosis Monitor hemodynamics Followed by Dr. Janell Sharma for mitral valvular disease. Mild/moderate MR on Echo 02/25/14, moderate stenosis, mild per Echo report 06/25/17. Hold diltiazem CD 120, use Cardizem 30 q6 via OG. Hold losartan/HCTZ for now as this may cause hyponatremia. Labetalol and hydralazine as needed for goal systolic less than 160 GI: Acute protein calorie malnutrition -severe Orogastric tube, tube feeds FEN/RENAL: Hyponatremia Patient was treated for hyponatremia with sodium of 116 on 07/11. Sodium was 118 on 07/12 and then 130 on 07/15 Sodium is 145 today we will hold p.o. sodium replacement Tee in place. Monitor intake and output. Monitor electrolytes and replace as indicated. ICU electrolyte protocol ID: h/o Influenza 06/25/17. CXR with bibasilar opacities. Has been treated empirically for HCAP F/U sputum culture. Follow-up blood cultures. HEME: Monitor CBC ENDO: Euglycemic PROPH: SCDs for DVT prophylaxis. Lovenox 40 mg subcutaneous daily for DVT prophylaxis. Famotidine for stress ulcer prophylaxis. ACCESS: Peripheral IV providing adequate access at this time ALT CODE INTUBATION ONLY. Palliative care consulted. This patient remains critically ill with one or more organ systems which are or may become a threat to life. I have spent in excess of 32 minutes discontinuously in the care and management of this patient. This time is exclusive of procedures, and includes, but is not limited to, evaluation of the patient, review of the medical record, discussions with family, consultants, nursing staff, or respiratory therapy, and documentation in the medical record. Yokasta Guido MD Jul 21, 2017 10:47
[2017-07-21] MEDS: DEXMEDETOMIDINE INJ 200 MCG in SODIUM CHLORIDE 0.9% INJ 50 ML IV PRN ×4 (10:50→21:48)
[2017-07-21] MEDS: RESP: BUDESONIDE 0.5 MG/2 ML NEB NEB SCH ×2 (11:00→20:31)
[2017-07-21] MEDS: fentaNYL 2,500 MCG/NS 250 ML IV PRN (11:32)
[2017-07-21] MEDS: CEFEPIME INJ 2,000 MG in SODIUM CHLORIDE 0.9% INJ 100 ML IV SCH ×2 (12:47→20:05)
--- NOTE | 2017-07-21 16:34 | HHI.PR ---
Subjective Remarks WORSENING RESPIRATORY FAILURE DURING NIGHT NOW ON VENT SEDATED Objective Vital Signs Date Time Temp Pulse Resp B/P (MAP) Pulse Ox O2 Delivery O2 Flow Rate FiO2 07/21/17 16:09 98 35 07/21/17 16:00 35 07/21/17 14:00 72 07/21/17 12:10 99 35 07/21/17 12:00 35 07/21/17 12:00 97.3 81 14 144/62 (89) 98 151/50 (83) 07/21/17 12:00 81 07/21/17 10:20 35 07/21/17 10:02 35 07/21/17 10:00 94 07/21/17 09:20 35 07/21/17 08:58 99 35 07/21/17 08:45 35 07/21/17 08:15 35 07/21/17 08:00 35 07/21/17 08:00 98.7 71 20 128/61 (83) 97 146/47 (80) 07/21/17 08:00 71 07/21/17 06:00 61 07/21/17 04:00 98.9 59 12 131/60 (83) 99 142/43 (76) 07/21/17 04:00 35 07/21/17 04:00 59 07/21/17 03:49 100 35 07/21/17 02:00 62 07/21/17 00:00 66 07/21/17 00:00 35 07/21/17 00:00 99.6 66 12 106/53 (70) 98 140/41 (74) 07/20/17 23:45 99 35 07/20/17 22:00 77 07/20/17 20:18 98 35 07/20/17 20:00 35 07/20/17 20:00 99.6 65 12 169/57 (94) 98 161/67 (98) 07/20/17 20:00 65 07/20/17 18:00 71 07/20/17 18:00 35 I/O 07/20/17 07/20/17 07/20/17 07/21/17 07/21/17 07/21/17 07:00 15:00 23:00 07:00 15:00 23:00 Intake Total 240 ml 456.4 ml 413 ml 350 ml 42 ml Output Total 525 ml 600 ml 450 ml Balance -285 ml -143.6 ml -37 ml 350 ml 42 ml Intake Oral 240 ml 0 ml 0 ml IV Total 336.4 ml 350 ml 42 ml Tube Feeding 413 ml Tube Irrigant 120 ml Output Urine Total 525 ml 600 ml 450 ml # Bowel Movements 0 2 0 Result Diagram: 07/21/175 07/21/17344 Objective Remarks GENERAL: SKIN: Warm and dry.ON VENT SUPPORT HEAD: Atraumatic. Normocephalic. EYES: Pupils equal and round. No scleral icterus. No injection or drainage. ENT: No nasal bleeding or discharge. Mucous membranes pink and moist. NECK: Trachea midline. No JVD. CARDIOVASCULAR: Regular rate and rhythm. RESPIRATORY: No accessory muscle use. Clear to auscultation. Breath sounds equal bilaterally. GASTROINTESTINAL: Abdomen soft, non-tender, nondistended. Hepatic and splenic margins not palpable. MUSCULOSKELETAL: Extremities without clubbing, cyanosis, or edema. No obvious deformities. NEUROLOGICAL: Awake and alert. No obvious cranial nerve deficits. Motor grossly within normal limits. Five out of 5 muscle strength in the arms and legs. Normal speech. PSYCHIATRIC: Appropriate mood and affect; insight and judgment normal. Assessment and Plan Assessment and Plan IMPRESSION RESPIRATORY FAILURE COPD PLAN VENT SUPPORT BRONCHODILATOR THERAPY WEAN TOLERATED F/U CXRAY Jaxon oCates MD Jul 21, 2017 16:34
[2017-07-22] VITALS (17 sets, daily range): BP systolic 99–146; BP diastolic 39–71; PULSE 52–110; RESP 13–20; TEMP 97.3–99.6; O2SAT 96–98
[2017-07-22] MEDS: INSULIN NovoLIN REGULAR SUPPLEMENTAL SCALE SQ SCH ×4 (00:01→17:23)
[2017-07-22] MEDS: DILTIAZEM HCL 30 MG TAB PO SCH ×4 (00:01→17:37)
[2017-07-22] MEDS: DEXMEDETOMIDINE INJ 200 MCG in SODIUM CHLORIDE 0.9% INJ 50 ML IV PRN ×9 (00:01→22:12)
[2017-07-22] MEDS: methylPREDNISolone SOD SUCC 40 MG/1 ML VIAL IV PUSH SCH ×4 (00:01→17:38)
[2017-07-22] MEDS: RESP: ALBUTEROL 2.5 MG/IPRATROPIUM 0.5 MG NEB (SCH) INH ×4 (03:17→20:49)
[2017-07-22] MEDS: CHLORHEXIDINE GLUCONATE 2 % 1 PACK (2 CLOTHS) TOP SCH (04:00)
[2017-07-22] MEDS: CEFEPIME INJ 2,000 MG in SODIUM CHLORIDE 0.9% INJ 100 ML IV SCH ×3 (04:25→20:00)
[2017-07-22] MEDS: ENOXAPARIN SODIUM 40 MG/0.4 ML SYRINGE SQ SCH (05:58)
[2017-07-22 06:13] LABS: HEMATOCRIT 26.6 % (35.0-46.0); MEAN CELL VOLUME 87.8 FL (80.0-100.0); MEAN CORPUSCULAR HEMOGLOBIN 29.7 PG (27.0-34.0); MEAN CORPUSCULAR HGB CONC 33.8 % (32.0-36.0); MEAN PLATELET VOLUME 8.3 FL (7.0-11.0); PLATELET COUNT 89 TH/MM3 (150-450); RED BLOOD COUNT 3.03 MIL/MM3 (4.00-5.30); RED CELL DISTRIBUTION WIDTH 14.9 % (11.6-17.2); WHITE BLOOD COUNT 4.7 TH/MM3 (4.0-11.0)
[2017-07-22] MEDS: hydrALAZINE HCL 20 MG/ML VIAL IV PUSH PRN (06:13)
[2017-07-22 06:32] LABS: CALCIUM 7.8 MG/DL (8.5-10.1); CREATININE 0.39 MG/DL (0.50-1.00)
[2017-07-22] MEDS: RESP: BUDESONIDE 0.5 MG/2 ML NEB NEB SCH ×2 (08:08→20:00)
[2017-07-22] MEDS: BUDESONIDE-FORMOTEROL 160/4.5 MCG INHALER INH SCH (09:00)
[2017-07-22] MEDS: DOCUSATE SODIUM 50 MG/SENNA 8.6 MG TAB PO SCH ×2 (09:02→21:00)
[2017-07-22] MEDS: fentaNYL 2,500 MCG/NS 250 ML IV PRN (09:02)
[2017-07-22] MEDS: SODIUM CHLORIDE 0.9% FLUSH 10 ML FLUSH IV FLUSH SCH ×2 (09:03→21:00)
[2017-07-22] MEDS: CHLORHEXIDINE 0.12% (ORAL KIT) 15 ML CUP MT SCH ×2 (09:04→20:00)
[2017-07-22] MEDS: FAMOTIDINE 20 MG TAB PO SCH ×2 (09:41→21:00)
--- NOTE | 2017-07-22 12:47 | HHI.PR ---
Subjective Remarks Was intubated for resp failure. Now on CPAP 09/03, FIO2 35 % Has weakness.On sedation still. Objective Vital Signs Date Time Temp Pulse Resp B/P (MAP) Pulse Ox O2 Delivery O2 Flow Rate FiO2 07/22/17 12:03 97 35 07/22/17 12:00 84 07/22/17 12:00 99.0 84 20 117/56 (76) 96 146/59 (88) 07/22/17 12:00 35 07/22/17 10:26 97 35 07/22/17 10:00 73 07/22/17 08:08 97 35 07/22/17 08:00 99.6 77 14 99/50 (66) 96 109/39 (62) 07/22/17 08:00 77 07/22/17 08:00 35 07/22/17 06:00 56 07/22/17 04:08 98 35 07/22/17 04:00 35 07/22/17 04:00 97.3 52 14 129/60 (83) 96 122/46 (71) 07/22/17 04:00 52 07/22/17 02:00 55 07/22/17 01:08 98 35 07/22/17 00:00 35 07/22/17 00:00 62 07/22/17 00:00 97.8 62 14 134/71 (92) 97 144/51 (82) 07/21/17 22:00 57 07/21/17 20:32 97 35 07/21/17 20:00 35 07/21/17 20:00 98.1 58 14 183/79 (113) 97 192/66 (108) 07/21/17 20:00 58 07/21/17 18:00 58 07/21/17 16:09 98 35 07/21/17 16:00 65 07/21/17 16:00 35 07/21/17 16:00 98.4 65 14 159/67 (97) 97 156/56 (89) 07/21/17 14:00 72 I/O 07/21/17 07/21/17 07/21/17 07/22/17 07/22/17 07/22/17 07:00 15:00 23:00 07:00 15:00 23:00 Intake Total 413 ml 350 ml 943.2 ml 1150 ml Output Total 450 ml 500 ml 400 ml Balance -37 ml 350 ml 443.2 ml 750 ml Intake Oral 0 ml 0 ml 0 ml IV Total 350 ml 320.2 ml 506 ml Tube Feeding 413 ml 503 ml 644 ml Tube Irrigant 120 ml Output Urine Total 450 ml 500 ml 400 ml # Bowel Movements 0 1 0 Result Diagram: 07/22/1742907/22/17429 Objective Remarks GENERAL: Thin built, frail elderly female,on vent support HEENT: Unremarkable. NECK: Supple. JVD not raised. CHEST: Equal air entry bilaterally,occ wheezes and decreased chest expansion. CARDIOVASCULAR: S1, S2 normal. ABDOMEN: Benign.No mass EXTREMITIES: No edema. CENTRAL NERVOUS SYSTEM: Sedated but responds Assessment and Plan Assessment and Plan IMPRESSION: 1. Hypercapnic respiratory failure, status post extubation. 2. Severe chronic obstructive pulmonary disease. 3. Nicotine use. 4. Anxiety disorder. 5. Hypertension Plan : 1. Will cont solumedrol 40 mg Q6H 2. Wean Vent to CPAP and check resp parameters 3. Duonebs qid. 4. Cont antibiotics as ordered 5. PT and OT 6. Extubate if stable. Cara Whitaker MD Jul 22, 2017 12:47
[2017-07-22] MEDS ORDERED: MIDAZOLAM HCL 5 MG/5 ML VIAL IV PUSH ONE (14:00)
--- NOTE | 2017-07-22 14:04 | HHI.CCPN ---
Subjective Remarks/Hospital Course 77 yo WF with PMH of COPD on 2 L home O2, hypertension. She was recently admitted to [facility] 06/25/17- 07/03/17 due to acute COPD exacerbation with acute on chronic hypercapnic respiratory failure that was triggered by influenza A. She was discharged to SNF. Reportedly she was doing reasonably well and participating in rehab. She had an episode of respiratory distress around 1 AM on 07/15 and another episode later in the evening which prompted staff to call E VAC. When E VAC arrived she was intubated at the scene due to apnea. She received 1 L normal saline bolus, vancomycin, Zosyn, DuoNeb 3 in the emergency department. Critical care medicine is consulted for admission. She is afebrile with no leukocytosis. CXR with bibasilar opacities. She has chronic CO2 retention SUBJ 07/16: Remains intubated on minimal sedation. Wakes up easily follows commands. Will initiate CPAP attempt wean to extubate. 07/17: Extubated yesterday tolerating well good saturation on nasal cannula. 07/20: RECONSULT NOTE: reconsulted for obtundation and agonal respiratory distress. Right response from floor for agonal respirations. When I evaluated the patient she was agonal and in extremis. I emergently intubated the patient , see separate procedure note for details. Her initial PCO2 was 128. I had a discussion with the son who reiterates the last palliative care note that the family despite understanding this is an end-stage disease process and she will from this, wants her intubated for "one more try ". The patient is intended no information is available from the patient. ROS unobtainable. 07/21: Remains intubated off sedation but continues to be tachypneic. Failed 2 attempts at CPAP trial today with severe tachypnea and respiratory distress 07/22: Patient meets criteria for extubation. Discussed with Dr. Flor at bedside in [facility]. We both agree that this is our best chance to get her off the ventilator. Shortly after extubation she began to struggle with deep air movement. Airway was widely patent. 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 We tried BiPAP 12/5 which provided better air movement and she became more relaxed. She talked with her POA for healthcare at the bedside and she is adamant that she be allowed to naturally. No more supportive measures, just comfort care. The surrogate and patient both request immediate medication for sedation and analgesia if necessary. We have contacted Palliative Care service to update them on these events. Objective Vital Signs Date Time Temp Pulse Resp B/P (MAP) Pulse Ox O2 Delivery O2 Flow Rate FiO2 07/22/17 12:03 97 35 07/22/17 12:00 84 07/22/17 12:00 99.0 20 117/56 (76) 146/59 (88) 07/20/17 02:22 Nasal Cannula 4.00 Intake and Output 07/22/17 07/22/17 07/23/17 08:00 16:00 00:00 Intake Total 1098 ml Output Total 400 ml Balance 698 ml Result Diagram: 07/22/17 0430 07/22/17 0430 Objective Remarks GENERAL: Elderly female in moderate distress, on BiPAP. SKIN: Warm and dry. HEAD: Atraumatic. Normocephalic. EYES: Pupils equal and round, 2 mm and reactive bilaterally. No scleral icterus. No injection or drainage. ENT: No nasal bleeding or discharge. NECK: Trachea midline. No airway obstruction. CARDIOVASCULAR: Regular rate and rhythm. Frequent PMBs. Rate 130s. RESPIRATORY: Tachypneic. Moderately labored breathing on attempted BiPAP. Placed back on full vent support. Sats 88 - 93% GASTROINTESTINAL: Abdomen soft, non-tender, nondistended. Quiet. MUSCULOSKELETAL: Extremities without clubbing, cyanosis, or edema. NEUROLOGICAL: RASS 2. Active with arms, gesturing. Clear minded. Speech clear, soft. Responsive. A/P Assessment and Plan Assessment: 77-year-old female with end-stage COPD and now recurrent COPD exacerbation with severe hypercapnic and hypoxic respiratory failure. At the family's request we will continue aggressive measures. Remains chronically ill. NEURO: Acute toxic metabolic encephalopathy secondary to CO2 retention Anxiety Fentanyl infusion for goal RASS -2 Start Precedex to facilitate vent weaning CT brain no acute abnormality RESP: Acute on chronic hypercapnic and hypoxic respiratory failure COPD on chronic 2 L O2 12 mm TONNY spiculated mass suspicious for malignancy (On CT 06/25/17) Patient has advanced COPD. CT scan from 2013 with emphysema and fibrotic scarring Duonebs every 4 hours. Albuterol every 2 hours as needed. Solu-Medrol 40 mg IV every 8. Add Budesonide INH Chest x-ray with bibasilar opacities. Effusion on the right which was present previously on CT chest 06/25/17 Has been seen by Dr. Coates in the past, lung mass not worked up. Pulmonology consulted Discussed with Dr. Flor today. CV: Hypertension Mitral stenosis Mild aortic stenosis Monitor hemodynamics Followed by Dr. Janell Sharma for mitral valvular disease. Mild/moderate MR on Echo 02/25/14, moderate stenosis, mild per Echo report 06/25/17. Hold diltiazem CD 120, use Cardizem 30 q6 via OG. Hold losartan/HCTZ for now as this may cause hyponatremia. Labetalol and hydralazine as needed for goal systolic less than 160 GI: Acute protein calorie malnutrition -severe Orogastric tube, tube feeds D/C OG tube. FEN/RENAL: Hyponatremia Patient was treated for hyponatremia with sodium of 116 on 07/11. Sodium was 118 on 07/12 and then 130 on 07/15 Sodium is 145 today we will hold p.o. sodium replacement Tee in place. Monitor intake and output. Monitor electrolytes and replace as indicated. ICU electrolyte protocol ID: h/o Influenza 06/25/17. CXR with bibasilar opacities. Has been treated empirically for HCAP F/U sputum culture. Follow-up blood cultures. HEME: Monitor CBC ENDO: Euglycemic PROPH: SCDs for DVT prophylaxis. Lovenox 40 mg subcutaneous daily for DVT prophylaxis. Famotidine for stress ulcer prophylaxis. ACCESS: Peripheral IV providing adequate access at this time ALT CODE INTUBATION ONLY. Palliative care consulted. Overall impression: Patient has end-stage COPD with CO2 retention and ineffective air movement. She is critically ill and not likely to survive this illness. I have talked with patient and POA at the bedside. This patient remains critically ill with one or more organ systems which are or may become a threat to life. I have spent in excess of 35 minutes discontinuously in the care and management of this patient. This time is exclusive of procedures, and includes, but is not limited to, evaluation of the patient, review of the medical record, discussions with family, consultants, nursing staff, or respiratory therapy, and documentation in the medical record. Qamar Olmedo MD Jul 22, 2017 14:04
[2017-07-22] MEDS: MORPHINE SULFATE 4 MG/ML INJ IV PUSH PRN ×9 (15:26→23:08)
[2017-07-22] MEDS: LORazepam 2 MG/ML VIAL IV PUSH PRN ×3 (15:26→23:35)
[2017-07-22] MEDS ORDERED: HYOSCYAMINE 0.5 MG/ML AMP IV PUSH PRN (19:15)
--- NOTE | 2017-07-22 21:21 | HHI.HCPN ---
Reason for visit a. To assist with evaluation and management of symptoms including: Dyspnea b. To assist medical decision maker(s) with: better understanding of current medical conditions; weighing benefits/burdens of medical treatment options; making medical treatment decisions. . Subjective/Interval History Manager Creative and slide attendant felt that patient was probably not going to have a better opportunity for extubation and decided to try extubation with son at bedside. Patient did not want to be re-intubated. She decompensated quickly and was placed on BiPAP. Son wanted comfort measures and to slowly wean her off the BiPap. He has spoken with family and they are in agreement. He understands she could easily over the next hours . . Family/friend interactions Spoke with son at bedside and supported his decision to honor the patient's wishes. . Advance Directives Health Care Surrogate: Copy in medical record Objective Vital Signs Date Time Temp Pulse Resp B/P (MAP) Pulse Ox O2 Delivery O2 Flow Rate FiO2 07/22/17 18:00 67 07/22/17 16:00 98.9 66 13 106/53 (70) 98 132/52 (78) 07/22/17 16:00 66 07/22/17 14:00 110 07/22/17 12:03 97 35 07/22/17 12:00 84 07/22/17 12:00 99.0 84 20 117/56 (76) 96 146/59 (88) 07/22/17 12:00 35 07/22/17 10:26 97 35 07/22/17 10:00 73 07/22/17 08:08 97 35 07/22/17 08:00 99.6 77 14 99/50 (66) 96 109/39 (62) 07/22/17 08:00 77 07/22/17 08:00 35 07/22/17 06:00 56 07/22/17 04:08 98 35 07/22/17 04:00 35 07/22/17 04:00 97.3 52 14 129/60 (83) 96 122/46 (71) 07/22/17 04:00 52 07/22/17 02:00 55 07/22/17 01:08 98 35 07/22/17 00:00 35 07/22/17 00:00 62 07/22/17 00:00 97.8 62 14 134/71 (92) 97 144/51 (82) 07/21/17 22:00 57 . Physical Exam CONSTITUTIONAL/GENERAL: Sedated, minimally responsive. SKIN: No jaundice, rashes, or lesions. No wounds seen anteriorly. Skin temperature appropriate. Not diaphoretic. NECK: Trachea midline. CARDIOVASCULAR: Frequent premature beats. RESPIRATORY/CHEST: Unlabored breathing on BiPAP and then later on simple mask. GASTROINTESTINAL: Abdomen soft, non-tender, nondistended. No hepato-splenomegaly , or palpable masses. GENITOURINARY: Without palpable bladder distension. MUSCULOSKELETAL: Extremities without clubbing, cyanosis, or edema. NEURO: Sedated; calm. Does not awaken to voice/exam. . Diagnostic Tests Laboratory Laboratory Tests Test 07/20/17 10:46 07/20/17 12:15 07/20/17 13:28 07/20/17 18:10 Blood Gas Puncture Site RT RADIAL ART LINE ART LINE Blood Gas Patient Temperature 98.6 98.6 98.6 Blood Gas HCO3 41 mmol/L (22-26) 38 mmol/L (22-26) 37 mmol/L (22-26) Blood Gas Base Excess 11.7 mmol/L (-2-2) 13.3 mmol/L (-2-2) 13.5 mmol/L (-2-2) Blood Gas Oxygen Saturation 89 % (90-100) 97 % (90-100) 96 % (90-100) Arterial Blood pH 7.13 (7.380-7.420) 7.51 (7.380-7.420) 7.54 (7.380-7.420) Arterial Blood Partial Pressure CO2 128 mmHg (38-42) 48 mmHg (38-42) 44 mmHg (38-42) Arterial Blood Partial Pressure O2 68 mmHg (61-120) 117 mmHg (61-120) 74 mmHg (61-120) Arterial Blood Oxygen Content 12.3 Vol % (12.0-20.0) 13.1 Vol % (12.0-20.0) 11.9 Vol % (12.0-20.0) Arterial Blood Carboxyhemoglobin 1.2 % (0-4) 1.2 % (0-4) 1.1 % (0-4) Arterial Blood Methemoglobin 1.0 % (0-2) 1.4 % (0-2) 1.3 % (0-2) Blood Gas Hemoglobin 9.8 G/DL (12.0-16.0) 9.5 G/DL (12.0-16.0) 8.8 G/DL (12.0-16.0) Oxygen Delivery Device BIPAP VENTILATOR VENTILATOR Blood Gas Ventilator Setting 51/+5/40 A/C 500/18/4PEEP A/C 500/14/5PEEP Blood Gas Inspired Oxygen 40 % 40 % 35 % Nasal Screen MRSA (PCR) MRSA DETECTED (NOT DETECT) Test 07/21/17 03:45 07/21/17 05:44 07/22/17 04:30 White Blood Count 5.4 TH/MM3 (4.0-11.0) 4.7 TH/MM3 (4.0-11.0) Red Blood Count 2.91 MIL/MM3 (4.00-5.30) 3.03 MIL/MM3 (4.00-5.30) Hemoglobin 8.5 GM/DL (11.6-15.3) 9.0 GM/DL (11.6-15.3) Hematocrit 25.8 % (35.0-46.0) 26.6 % (35.0-46.0) Mean Corpuscular Volume 88.6 FL (80.0-100.0) 87.8 FL (80.0-100.0) Mean Corpuscular Hemoglobin 29.3 PG (27.0-34.0) 29.7 PG (27.0-34.0) Mean Corpuscular Hemoglobin Concent 33.1 % (32.0-36.0) 33.8 % (32.0-36.0) Red Cell Distribution Width 15.0 % (11.6-17.2) 14.9 % (11.6-17.2) Platelet Count 91 TH/MM3 (150-450) 89 TH/MM3 (150-450) Mean Platelet Volume 7.8 FL (7.0-11.0) 8.3 FL (7.0-11.0) Blood Urea Nitrogen 32 MG/DL (7-18) 37 MG/DL (7-18) Creatinine 0.52 MG/DL (0.50-1.00) 0.39 MG/DL (0.50-1.00) Random Glucose 147 MG/DL (74-106) 179 MG/DL (74-106) Calcium Level 8.0 MG/DL (8.5-10.1) 7.8 MG/DL (8.5-10.1) Sodium Level 145 MEQ/L (136-145) 145 MEQ/L (136-145) Potassium Level 4.2 MEQ/L (3.5-5.1) 3.9 MEQ/L (3.5-5.1) Chloride Level 103 MEQ/L (98-107) 103 MEQ/L (98-107) Carbon Dioxide Level 39.3 MEQ/L (21.0-32.0) 38.0 MEQ/L (21.0-32.0) Anion Gap 3 MEQ/L (5-15) 4 MEQ/L (5-15) Estimat Glomerular Filtration Rate 114 ML/MIN (>89) 159 ML/MIN (>89) Blood Gas Puncture Site ART LINE Blood Gas Patient Temperature 98.6 Blood Gas HCO3 39 mmol/L (22-26) Blood Gas Base Excess 13.7 mmol/L (-2-2) Blood Gas Oxygen Saturation 96 % (90-100) Arterial Blood pH 7.44 (7.380-7.420) Arterial Blood Partial Pressure CO2 58 mmHg (38-42) Arterial Blood Partial Pressure O2 94 mmHg (61-120) Arterial Blood Oxygen Content 10.9 Vol % (12.0-20.0) Arterial Blood Carboxyhemoglobin 1.1 % (0-4) Arterial Blood Methemoglobin 1.3 % (0-2) Blood Gas Hemoglobin 8.0 G/DL (12.0-16.0) Oxygen Delivery Device VENTILATOR Blood Gas Ventilator Setting SEE COMMENT Blood Gas Inspired Oxygen 35 % . Result Diagram: 07/22/17 0430 07/22/17 0430 Microbiology Microbiology Date/Time Source Procedure Growth Status 07/21/17 17:25 Sputum Endotracheal Gram Stain - Final Resulted 07/21/17 17:25 Sputum Culture - Preliminary S. Aureus Mrsa Resulted . Imaging Last Impressions Chest X-Ray 07/20/17 0000 Signed Impressions: Service Date/Time: Thursday, July 20, 2017 12:52 - CONCLUSION: 1. Embol intubation and placement of nasogastric tube. 2. No change in the patchy opacity at the left lung base. Alvino Chan MD Head CT 07/15/17 0000 Signed Impressions: Service Date/Time: Sunday, July 16, 2017 01:34 - CONCLUSION: No acute intracranial disease. Emmanuel Mcconnell MD . Assessment and Plan Disease Oriented Problem List: (1) COPD with acute exacerbation (2) Lung nodule (3) Tobacco abuse (4) Mitral stenosis (5) Physical deconditioning Symptom Scale: (1) Anxiety 0-10 Scale: 0 (2) Dyspnea 0-10 Scale: Unable to quantify Pertinent Non-Medical Issues Psychosocial: x 2. . Pt's last past away 8 years ago. Has 4 children: Alvino Cortes and Ruddy cortes is from a previous marriage. They live in [place] and per reachable son, they have been estranged. There is no contact information available. Armond Catalino Alvino Bae is now the health care surrogate Spiritual:Scientologist Legal: Alvino Bae is the health care surrogate. Ethical issues impacting care: none Important Contacts Alvino Bae Son: [phone] Prognosis Has severe COPD. Has failed extubation and does not want to be re-intubated. Anticipate over hours to days. . Code Status: No Code Plan == Code Status : NO CODE == Medical decision Making: Sedatd, incapacitated. will no longer regain capacity to make decisions. Alvino Bae is the primary surrogate. == Goals of Medical Treatment: Allow for a peaceful . == Manager Creative has provided comfort orders with prn morphine and lorazepam. No further recommendations at this time. == If patient survives overnight and is stable for transport, will offer hospice and care center placement. . Attestation To help prompt me to consider important information that might be impacting today's encounter and assessment, information from prior notes written by myself or my colleagues may have been "brought forward" into today's note. My signature on this note, however, is an attestation that I personally performed the exam, history, and/or decision-making noted today, and, unless otherwise indicated, the interactions with patient, family, and staff as well as the review of records all occurred today. I also attest that the listed assessment and stated plan reflect my best clinical judgment today based on the combination of historical information, prior notes, and today's exam/ interactions. When time spent is documented, it refers only to time spent today by the signer, or if indicated, combined time spent today by collaborating physician/nurse practitioner. . Gatito Berry MD Jul 22, 2017 21:21
[2017-07-23] VITALS: BP 118/53; PULSE 93; RESP 13; O2SAT 87
[2017-07-23] MEDS: MORPHINE SULFATE 4 MG/ML INJ IV PUSH PRN (00:13)
--- NOTE | 2017-07-24 16:10 | DEATH SUM ---
Summary Demographics Date Pronounced : Jul 23, 2017 Time Of : 0045 Pronounced By: Eileen GAMINO Preliminary Cause of : Cardiac arrest Yokasta Guido MD Jul 24, 2017 16:10
--- NOTE | 2017-07-24 16:12 | HHI.DS ---
Summary Note Date of : Jul 23, 2017 Time Of : 0045 Admission Date Jul 15, 2017 at 19:56 Admitting Diagnosis respiratory failure, COPD, pneumonia Diagnosis at Time of : (1) Acute and chronic respiratory failure with hypoxia ICD Code: J96.21 - Acute and chronic respiratory failure with hypoxia Diagnosis: Principal (2) Acute and chronic respiratory failure with hypercapnia ICD Code: J96.22 - Acute and chronic respiratory failure with hypercapnia Diagnosis: Principal (3) COPD with acute exacerbation ICD Code: J44.1 - COPD with acute exacerbation Diagnosis: Principal (4) Lung nodule ICD Code: R91.1 - Lung nodule Diagnosis: Secondary (5) Mitral stenosis 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 She was recently admitted to [facility] 06/25/17- 07/03/17 due to acute COPD exacerbation with acute on chronic hypercapnic respiratory failure that was triggered by influenza A. She was discharged to SNF. Reportedly she was doing reasonably well and participating in rehab. She had an episode of respiratory distress around 1 AM on 07/15 and another episode later in the evening which prompted staff to call [facility]. When [facility] arrived she was intubated at the scene due to apnea. She received 1 L normal saline bolus, vancomycin, Zosyn, DuoNeb 3 in the emergency department. Critical care medicine is consulted for admission. She is afebrile with no leukocytosis. CXR with bibasilar opacities. She has chronic CO2 retention CBC/BMP: 07/22/17 0430 07/22/17 0430 Significant Findings Laboratory Tests Test 07/22/17 04:30 Red Blood Count 3.03 MIL/MM3 (4.00-5.30) Hemoglobin 9.0 GM/DL (11.6-15.3) Hematocrit 26.6 % (35.0-46.0) Platelet Count 89 TH/MM3 (150-450) Blood Urea Nitrogen 37 MG/DL (7-18) Creatinine 0.39 MG/DL (0.50-1.00) Random Glucose 179 MG/DL (74-106) Calcium Level 7.8 MG/DL (8.5-10.1) Carbon Dioxide Level 38.0 MEQ/L (21.0-32.0) Anion Gap 4 MEQ/L (5-15) Imaging Chest X-Ray 07/15/17 CONCLUSION: 1. Basilar air space disease with small pleural effusions. Endotracheal tube in good position. Mild cardiomegaly. Head CT Impressions: - CONCLUSION: No acute intracranial disease. Hospital Course 77 yo WF with PMH of COPD on 2 L home O2, hypertension. She was recently admitted to [facility] 06/25/17- 07/03/17 due to acute COPD exacerbation with acute on chronic hypercapnic respiratory failure that was triggered by influenza A. She was discharged to SNF. Reportedly she was doing reasonably well and participating in rehab. She had an episode of respiratory distress around 1 AM on 07/15 and another episode later in the evening which prompted staff to call [facility]. When [facility] arrived she was intubated at the scene due to apnea. She received 1 L normal saline bolus, vancomycin, Zosyn, DuoNeb 3 in the emergency department. Critical care medicine is consulted for admission. She is afebrile with no leukocytosis. CXR with bibasilar opacities. She has chronic CO2 retention SUBJ 07/16: Remains intubated on minimal sedation. Wakes up easily follows commands. Will initiate CPAP attempt wean to extubate. 07/17: Extubated yesterday tolerating well good saturation on nasal cannula. 07/20: RECONSULT NOTE: reconsulted for obtundation and agonal respiratory distress. Right response from floor for agonal respirations. When I evaluated the patient she was agonal and in extremis. I emergently intubated the patient , see separate procedure note for details. Her initial PCO2 was 128. I had a discussion with the son who reiterates the last palliative care note that the family despite understanding this is an end-stage disease process and she will from this, wants her intubated for "one more try ". The patient is intended no information is available from the patient. ROS unobtainable. 07/21: Remains intubated off sedation but continues to be tachypneic. Failed 2 attempts at CPAP trial today with severe tachypnea and respiratory distress 07/22: Patient meets criteria for extubation. Dr Olmedo discussed with Dr. Katerine Akins at bedside in [facility]. Both agreed for extubation. Shortly after extubation she began to struggle with deep air movement. Airway was widely patent. 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 Tried BiPAP 12/ 5 which provided better air movement and she became more relaxed. She talked with her POA for healthcare at the bedside and she is adamant that she be allowed to naturally. No more supportive measures, just comfort care. The surrogate and patient both request immediate medication for sedation and analgesia if necessary. We have contacted Palliative Care service to update them on these events. Per Dr. Berry notes- Son wanted comfort measures and to slowly wean her off the BiPap. He has spoken with family and they are in agreement. Comfort measures initiated. Patient comfortably at 0043 , 07/23/17 Yokasta Guido MD Jul 24, 2017 16:12
== END 2017-07-23 00:45 | disposition expired | DRG 208 ==
LOC: NEPE 18:21 → NEDA 19:56 → HIMN 07-16 01:40 → N06B 07-17 21:42 → HIMW 07-20 11:25
PROVIDERS: ADMIT Hospitalist; ATTEND Hospitalist
PROC: 5A1935Z Respiratory Ventilation, Less than 24 Consecutive Hours (ICD-10-PCS; 2017-07-15)
PROC: 0D9670Z Drainage of Stomach with Drainage Device, Via Natural or Artificial Opening (ICD-10-PCS; 2017-07-15)
PROC: 5A1945Z Respiratory Ventilation, 24-96 Consecutive Hours (ICD-10-PCS; principal; 2017-07-20)
PROC: 0BH18EZ Insertion of Endotracheal Airway into Trachea, Via Natural or Artificial Opening Endoscopic (ICD-10-PCS; 2017-07-20)
PROC: 03HY32Z Insertion of Monitoring Device into Upper Artery, Percutaneous Approach (ICD-10-PCS; 2017-07-20)
PROC: 0BP1XDZ Removal of Intraluminal Device from Trachea, External Approach (ICD-10-PCS; 2017-07-22)
DX: J96.22 Acute and chronic respiratory failure with hypercapnia (principal); I46.9 Cardiac arrest, cause unspecified; J11.08 Influenza due to unidentified influenza virus with specified pneumonia; G92 Toxic encephalopathy; J18.1 Lobar pneumonia, unspecified organism; J90 Pleural effusion, not elsewhere classified; J44.0 Chronic obstructive pulmonary disease with (acute) lower respiratory infection; E87.2 Acidosis; E46 Unspecified protein-calorie malnutrition; J44.1 Chronic obstructive pulmonary disease with (acute) exacerbation; E87.1 Hypo-osmolality and hyponatremia; N39.0 Urinary tract infection, site not specified; J96.21 Acute and chronic respiratory failure with hypoxia; Z99.81 Dependence on supplemental oxygen; N18.3 Chronic kidney disease, stage 3 (moderate); F17.210 Nicotine dependence, cigarettes, uncomplicated; I12.9 Hypertensive chronic kidney disease with stage 1 through stage 4 chronic kidney disease, or unspecified chronic kidney disease; F41.9 Anxiety disorder, unspecified; I08.0 Rheumatic disorders of both mitral and aortic valves; R01.1 Cardiac murmur, unspecified; R91.1 Solitary pulmonary nodule; Z78.1 Physical restraint status; Z79.82 Long term (current) use of aspirin; Z51.5 Encounter for palliative care
CPT/HCPCS: 31500; 36556; 36600; 51702; 70450; 71045; 76937; 80048; 80053; 81001; 82805; 82948; 83605; 83735; 84132; 84484; 85025; 85027; 85610; 85730; 86403; 87040; 87070; 87086; 87147; 87186; 87205; 87641; 93005; 94002; 94003; 94150; 94640; 94664; 96365; J0360; J0692; J0696; J1650; J1980; J2060; J2250; J2270; J2405; J2543; J2765; J2920; J2930; J3010; J3370; J3480; J7030; J7050; J7626